=== PATIENT | female | born 1990 | race Caucasian/White ===

== ENCOUNTER 2023-09-24 09:15 | Outpatient (OUT) | payer BC, SELFPAY ==
--- NOTE | 2023-09-24 09:24 | MM_ITS ---
Patient Name: VITA SMITH MR#: [id number] : 1990 Exam Date: 09/24/2023 Ordering Doctor: ROD LORA . RADIOLOGY REPORT PROCEDURE: MM TOMOSYNTHESIS SCREENING BI COMPARISON: MAMMO TYLER SCREEN, 06/20/2022. INDICATIONS: screening Calculator Name NCI Breast Cancer Risk Assessment Tool 5 Year Breast Cancer Risk Not Applicable. Lifetime Breast Cancer Risk Not Applicable. Personal Breast Cancer No Personal Ovarian Cancer No Treatments None Family Cancers Mother with breast cancer at age 36; Grandfather-paternal with stomach cancer at age 76. LOCATION: [facility] BREAST COMPOSITION: There are scattered areas of fibroglandular density. FINDINGS: DIAGNOSTIC CATEGORY 1--NEGATIVE. NO CHANGE FROM COMPARISON ASSESSMENT. Scattered benign-appearing calcifications are present. Scattered benign-appearing lymph nodes are present. RIGHT BREAST: No significant suspicious finding. LEFT BREAST: No significant suspicious finding. RECOMMENDATIONS: CLINICAL EVALUATION. PLEASE NOTE: A NORMAL MAMMOGRAM DOES NOT EXCLUDE THE POSSIBILITY OF BREAST CANCER. A CLINICALLY SUSPICIOUS PALPABLE LUMP SHOULD BE BIOPSIED. Dictated by: Yeison Mendoza MD on 09/24/2023 at 15:18 Approved by: Yeison Mendoza MD on 09/24/2023 at 15:21
--- NOTE | 2023-09-24 09:26 | XR_ITS ---
[address] [address] Patient Name: VITA SMITH MRN: [id number] date: 1990 Sex: F Assigned Patient Location: [facility] Current Patient Location: [facility] Accession/Order Number: [id number] Exam Date: 09/24/2023 09:40 Report Date: 09/24/2023 09:54 At the request of: ROD LORA Procedure: XR elbow RT min 3V PROCEDURE: XR elbow RT min 3V COMPARISON: None. HISTORY: right elbow pain FINDINGS: BONES:No fracture, acute abnormality, or significant arthropathy. SOFT TISSUES:Negative. No visible soft tissue swelling. EFFUSION:None visible. OTHER: Negative. XR/XR elbow RT min 3V IMPRESSION: Normal exam Electronically authenticated by: XAVIER BRADY Date: 09/24/2023 09:54
--- NOTE | 2023-09-24 10:08 | XR_ITS ---
The [address] [address] Patient Name: VITA SMITH MRN: [id number] date: 1990 Sex: F Assigned Patient Location: [facility] Current Patient Location: [facility] Accession/Order Number: [id number] Exam Date: 09/24/2023 10:15 Report Date: 09/24/2023 12:15 At the request of: ROD LORA Procedure: XR shoulder LT min 2V PROCEDURE: XR shoulder LT min 2V COMPARISON: None. HISTORY: Left Shoulder Pain FINDINGS: BONES:No acute fracture or dislocation. The acromion clavicular and glenohumeral joints are normal in appearance. 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 No visible soft tissue swelling. EFFUSION:None visible. OTHER: Negative. XR/XR shoulder LT min 2V IMPRESSION: No acute abnormality Electronically authenticated by: XAVIER BRADY Date: 09/24/2023 12:15
== END 2023-09-24 09:16 | disposition home or self-care (01) ==
LOC: MAMMO 09:18
PROVIDERS: PCP Nurse Practitioner; Visit Provider Nurse Practitioner
DX: Z12.31 Encounter for screening mammogram for malignant neoplasm of breast (principal); M25.512 Pain in left shoulder; Z80.3 Family history of malignant neoplasm of breast; Z80.0 Family history of malignant neoplasm of digestive organs; M25.521 Pain in right elbow
CPT/HCPCS: 73030; 73080; 77063; 77067

== ENCOUNTER 2023-10-15 13:58 | Outpatient (OUT) | payer BC, SELFPAY ==
[2023-10-15 15:05] LABS: Basophils Percent Auto 0.4 % (0.2-2.0); Eosinophils Absolute Auto 0.3 10^3/uL (0.0-0.7); Eosinophils Percent Auto 3.2 % (0.9-7.0); Hematocrit 39.1 % (36.0-48.0); Hemoglobin 13.1 g/dL (12.0-16.0); Immature Granulocytes Abs Auto 0.02 10^3/uL (0.00-0.03); Immature Granulocytes Pct Auto 0.2 % (0.0-0.5); Lymphocytes Percent Auto 37.9 % (20.5-60.0); Mean Corpuscular HGB Conc 33.5 g/dL (29.9-35.2); Mean Corpuscular Hemoglobin 30.8 pg (26.7-34.0); Mean Platelet Volume 11.9 fL (9.5-13.5); Monocytes Absolute Auto 0.5 10^3/uL (0.3-0.8); Monocytes Percent Auto 4.5 % (1.7-12.0); Neutrophils Absolute Auto 5.7 10^3/uL (1.4-6.5); Neutrophils Percent Auto 53.8 % (43.0-75.0); Red Blood Count 4.25 10^6/uL (4.20-5.40); Red Cell Distribution Width 13.6 % (11.0-15.0); White Blood Count 10.5 10^3/uL (4.0-11.0)
[2023-10-15 15:20] LABS: Platelet Count 63 10^3/uL (150-450)
[2023-10-15 15:21] LABS: Percent Iron Saturation 21.9 %
[2023-10-15 15:59] LABS: Alanine Aminotransferase 24 U/L (14-59); Albumin Globulin Ratio 0.8; Albumin Level 3.4 g/dL (3.4-5.0); Alkaline Phosphatase 80 U/L (46-116); Anion Gap 10.8; Aspartate Amino Transferase 12 U/L (15-37); BUN Creatinine Ratio 14.5; Bilirubin Total 0.5 mg/dL (0.2-1.0); Calcium 9.2 mg/dL (8.5-10.1); Carbon Dioxide 28.6 mmol/L (21.0-32.0); Chloride 102 mmol/L (98-107); Estimated GFR (African America >60 (>=60); Estimated GFR (Non-African Ame >60 (>=60); Globulin 4.2 g/dL; Glucose 93 mg/dL (74-106); Lactate Dehydrogenase 177 U/L (81-234); Potassium 3.4 mmol/L (3.5-5.1); Sodium 138 mmol/L (136-145); Total Protein 7.6 g/dL (6.4-8.2)
[2023-10-16 05:07] LABS: HBsAg Screen Negative (Negative); Hep B Core Ab, IgM Negative (Negative); Hepatitis B Surf Ab Quant <3.1 mIU/mL (Immunity>9.9); Transferrin 266 mg/dL (192-364)
[2023-10-16 06:09] LABS: HCV Ab Non Reactive (Non Reactive); HIV Ab/p24 Ag Screen Non Reactive (Non Reactive)
[2023-10-16 16:13] LABS: Albumin 3.5 g/dL (2.9-4.4); Alpha-1-Globulin 0.2 g/dL (0.0-0.4); Alpha-2-Globulin 0.8 g/dL (0.4-1.0); Free Kappa Lt Chains,S 16.3 mg/L (3.3-19.4); Free Lambda Lt Chains,S 13.2 mg/L (5.7-26.3); Gamma Globulin 1.3 g/dL (0.4-1.8); Immunoglobulin A, Qn, Serum 263 mg/dL (87-352); Immunoglobulin G, Qn, Serum 1247 mg/dL (586-1602); Immunoglobulin M, Qn, Serum 110 mg/dL (26-217); Kappa/Lambda Ratio,S 1.23 (0.26-1.65)
== END 2023-10-15 13:59 | disposition home or self-care (01) ==
PROVIDERS: PCP Nurse Practitioner; Visit Provider Internal Medicine
DX: D75.839 Thrombocytosis, unspecified (principal)
CPT/HCPCS: 36415; 80053; 82607; 82728; 82746; 82784; 83521; 83540; 83550; 83615; 84155; 84165; 84466; 85025; 86317; 86709; 86803; 87340; 87389

== ENCOUNTER 2023-10-22 09:40 | Outpatient (OUT) | payer BC, SELFPAY ==
--- OUTSIDE RECORDS SUMMARY | 2023-10-22 10:03 | XMS_ITS ---
Patient Summarization (C-CDA 2.1 CCD) Created on: October 22, 2023 NICOLE CARTER : 1990 Sex: Female Author Organization Sample organization Care Team Providers Care Quality Control Tech Raw Materials Name Role Phone DANA RAMIREZ Admitting Unavailable DANA RAMIREZ Attending Unavailable DANA RAMIREZ Referring Unavailable DANA RAMIREZ Consulting Unavailable Crista Hernandez Unavailable Letha Herring Unavailable Dana Ramirez MD Primary Care Provider [phone] DANA RAMIREZ Referring Unavailable DANA RAMIREZ Primary Care Unavailable Yocasta Ansari Primary Care Physician Coty, Yocasta Ma Admitting Unavailable Coty, Yocasta Ma Attending Unavailable Brody Weston Attending Unavailable Coty, BRIM POUNCER MACHINE OPERATOR Yocasta Ma Referring Unavailable Coty, Yocasta Ma Attending Unavailable Coty, Yocasta Ma Attending Unavailable Coty, Yocasta Ma Attending Unavailable Coty, Yocasta Ma Admitting Unavailable Coty, Yocasta Ma Attending Unavailable Coty, Yocasta Ma Admitting Unavailable Coty, Yocasta Ma Attending Unavailable Allergies Allergy Classification Reported Allergen(s) Allergy Type Date of Onset Reaction(s) Facility (1 source) desloratadine / Pseudoephedrine Drug Allergy 09-24-19 15 [facility] Repository (4 sources) predniSONE; Translations: [PREDNISONE] Drug Allergy 09-22-19 15 [facility] Repository (3 sources) Sertraline; Translations: [Zoloft] Drug Allergy 09-22-19 15 [facility] Repository (2 sources) Ciprofloxacin Drug Allergy Unknown [employer] Other (7 sources) Sertraline; Translations: [SERTRALINE] Drug Allergy 05-23-20 21 Palpitations, Unknown (qualifier value) [employer] Other (4 sources) predniSONE; Translations: [prednisone] Drug Allergy 05-23-20 21 Palpitations, Unknown (qualifier value) [facility] Encounters Encounter Date Encounter Type Care Provider Facility Start: 10-16-2023 End: 10-17-2023 ambulatory Brody Weston Facility:[facility] Start: 10-16-2023 End: 10-16-2023 Patient encounter procedure Brody Weston [facility] Start: 10-09-2023 End: 10-10-2023 ambulatory Yocasta L Coty Facility:[facility] Start: 10-09-2023 End: 10-09-2023 Lab Drop off Yocasta L Coty [facility] Start: 09-17-2023 End: 09-18-2023 ambulatory Yocasta L Coty Facility:[facility] Start: 09-17-2023 End: 09-17-2023 Lab Drop off Yocasta L Coty [facility] Start: 07-30-2023 End: 07-31-2023 ambulatory Yocasta L Coty Facility:[facility] Start: 07-17-2023 End: 07-17-2023 ambulatory DANA [facility] Start: 07-17-2023 Encounter for gynecological examination (general) (routine) without abnormal findings DANA [facility] Start: 07-17-2023 End: 07-17-2023 Patient encounter procedure [facility] [employer] [facility] Start: 07-17-2023 End: 07-17-2023 Periodic preventive med est patient 18-39 yrs [facility] [employer] [facility] [place] Comment on above: Well woman exam with routine gynecological exam (Primary Dx); Family hx-breast malignancy; At high risk for breast cancer; Standardized adult depression screening tool completed Start: 12-10-2022 End: 12-10-2022 ambulatory Letha Herring Other [employer] Other Start: 12-10-2022 Office outpatient vi sit 15 minutes Letha Herring [facility] Start: 12-09-2022 ambulatory Yocasta Ansari Facility:[facility] Start: 08-29-2022 End: 08-29-2022 ambulatory Crista Hernandez Other [employer] Other Start: 08-29-2022 Office outpatient vi sit 15 minutes Crista Perezmond [facility] Start: 01-01-2019 End: 01-02-2019 Patient encounter procedure DANA Joann GRZEGORZ Facility:[facility] Medications Current Medications Medication Drug Class(es) Dates Sig (Normalized) Sig (Original) atenolol 25 mg oral tablet (6 sources) beta-Adrenergic Mark Start: 09-09-2023 take 1 tablet by mouth once daily atenolol 25 mg Tab 25 mg = 1 tab(s), Oral, Daily, # 90 tab(s), Refills(s) 1, Pharmacy: [facility]/pharmacy #[id number], 157.4, cm, 09/25/22 16:16:00 EDT, Height/Length Dosing, 93.3, kg, 09/25/22 16:16:00 EDT, Weight Dosing Start Date: 09/09/23 Status: Ordered take 1 tablet by mouth in the wi rning atenoloL (TENORMIN) 25 mg tablet Take 1 tablet (25 mg total) by mouth in the morning. Takes it in quarters . 0 Active Atenolol Active citalopram 40 mg oral tablet (6 sources) Serotonin Reuptake Inhibitor Start: 09-09-2023 take 1 tablet by mouth once daily citalopram 40 mg Tab 40 mg = 1 tab(s), Oral, Daily, # 90 tab(s), Refills(s) 1, Pharmacy: [facility]/pharmacy #[id number], 157.4, cm, 09/25/22 16:16:00 EDT, Height/Length Dosing, 93.3, kg, 09/25/22 16:16:00 EDT, Weight Dosing Start Date: 09/09/23 Status: Ordered take 1 tablet by mouth in the mo rning citalopram (CeleXA) 40 mg tablet Take 1 tablet (40 mg total) by mouth in the morning. 0 Active CeleXA Active Fish Oils (2 sources) Start: 10-09-2023 Fish Oil Oral, BID, Refill(s) 0 Start Date: 10/09/23 Status: Ordered gabapentin 300 mg oral capsule (2 sources) Anti-epileptic Agent Start: 10-09-2023 take 1 capsule by mouth twice daily gabapentin 300 mg Cap 300 mg = 1 cap(s), Oral, BID, # 60 cap(s), Refills(s) 0, Pharmacy: [facility]/pharmacy #[id number], 157.4, cm, 10/09/23 10:28:00 EDT, Height/Length Dosing, 87.6, kg, 10/09/23 10:28:00 EDT, Weight Dosing Start Date: 10/09/23 Status: Ordered LORazepam 0.5 mg oral tablet (3 sources) Benzodiazepine Start: 09-17-2023 take 1 tablet by mouth every twelve hours as needed for anxiety Ativan 0.5 mg Tab 0.5 mg = 1 tab(s), Oral, q12hr, PRN anxiety, # 20 tab(s), Refills(s) 0, Pharmacy: [facility]/pharmacy #[id number], 157.4, cm, 09/17/23 10:18:00 EDT, Height/Length Dosing, 89.1, kg, 09/17/23 10:18:00 EDT, Weight Dosing Start Date: 09/17/23 Status: Ordered methylPREDNISolone 4 mg oral tablet (1 source) Corticosteroid Start: 12-10-2022 methylPREDNISolone 4 MG as directed Orally for daily dose take half with breakfast, half with dinner for 6 days Nov, Active omeprazole 40 mg delayed release oral capsule (6 sources) Proton Pump Inhibitor Start: 09-11-2023 take 1 capsule by mouth once daily omeprazole 40 mg Cap-DR 40 mg = 1 cap(s), Oral, Daily, # 90 tab(s), Refills(s) 1, Pharmacy: [facility]/pharmacy #[id number], 157.4, cm, 09/25/22 16:16:00 EDT, Height/Length Dosing, 93.3, kg, 09/25/22 16:16:00 EDT, Weight Dosing Start Date: 09/11/23 Status: Ordered take 2 capsules by mouth in the morning omeprazole (PriLOSEC) 20 mg capsule Take 2 capsules (40 mg total) by mouth in the morning. 0 Active Omeprazole Activ e Completed/Discontinued Medications Medication Drug Class(es) Dates Sig (Normalized) Sig (Original) [id number] 200 actuat albuterol 0.09 mg/actuat metered dose inhaler (2 sources) beta2-Adrenergic Agonist Start: 08-29-2022 take 2 puff(s) by inhalation four times daily as needed Albuterol Sulfate HFA 108 (90 Base) MCG/ACT 2 puffs Inhalation 4 times a day prn Aug, Not-Taking semaglutide, weight loss, (WEGOVY) 0.5 mg/0.5 mL pen injector (1 source) Start: 07-16-2022 End: 07-17-2023 semaglutide, weight loss, (WEGOVY) 0.5 mg/0.5 mL pen injector Indications: Obesity (BMI 35.0-39.9 without comorbidity) Inject 0.5 mL (0.5 mg total) under the skin every 7 days. 2 mL 0 07/16/2022 07/17/2023 Discontinued (Side effects) Payers Date Payer Category Payer Unknown [employer]NE[employer] OUT OF STATE PPO/TRUST [id number] 2017-Present [phone] [address] [place] [address] [id number] 1990 Unknown [id number] 1990 Unknown [id number] 1990 Unknown [id number] 1990 Unknown [id number] 1990 Unknown [id number] 1990 Unknown [id number] 1990 Unknown [id number] 1990 Unknown [id number] 1960 Unknown [id number] Plan of Treatment Date Care Activity Detail Author Start: 07-17-2024 Adult BMI Follow Up Plan Adult BMI Follow Up Plan [facility] [employer] [facility] Start: 07-17-2024 Adult [facility] Screening [facility] Start: 07-17-2024 Depression Screening Depression Scre ening [facility] [employer] [facility] Start: 07-17-2024 Tobacco Screening [facility] Start: 05-23-2024 Screening for malign ant neoplasm of cervix [facility] Start: 07-17-2023 End: 09-13-2024 DBT Breast - bilateral screening Mammography screening bilateral with CAD Imaging Routine Family hx-breast malignancy At high risk for breast cancer Expected: 07/17/2023, Expires: 09/13/2024 [employer] Phone: Comment on above: Expected: 07/17/2023 , Expires: 09/13/2024 Start: 01-24-2023 Influenza vaccination Influenza Vacc ine [facility] Start: 02-25-2008 DTaP,Tdap and Td Vaccines (1 - Tdap) DTaP,Tdap and Td Vaccines (1 - Tdap) [facility] [employer] Problems Active Problems Problem Classification Problem Date Documented Date Episodic/Chronic Adjustment disorders (3 sources) Adjustment disorder with depressed mood 09-23-2022 Chronic Anxiety disorders (3 sources) Anxiety disorder 09-23-2022 Chronic Cardiac dysrhythmias (7 sources) Supraventricular tachycardia; Translations: [Supraventricular tachycardia] Onset: 01-01-2019 09-23-2022 Chronic Chronic obstructive pulmonary disease and bronchiectasis (1 source) Bronchitis, not specified as acute or chronic Episodic Coagulation and hemorrhagic disorders (1 source) Thrombocytopenic disorder 10-10-2023 Chronic Immunizations and screening for infectious disease (1 source) Contact with and (suspected) exposure to other viral communicable diseases Episodic Malaise and fatigue (3 sources) Fatigue 09-17-2023 Episodic Other endocrine disorders (1 source) Polycystic ovary syndrome; Translations: [Polycystic ovarian syndrome] Onset: 06-18-2022 06-18-2022 Chronic Other non-traumatic joint disorders (3 sources) Pain in elbow 09-17-2023 Episodic Other nutritional; endocrine; and metabolic disorders (1 source) Obese class II; Translations: [Obesity, unspecified] Onset: 06-18-2022 06-18-2022 Chronic Other screening for suspected conditions (not mental disorders or infectious disease) (2 sources) Platelet count below reference range 10-09-2023 Episodic Residual codes; unclassified (5 sources) Family history of breast cancer; Translations: [Family history of malignant neoplasm of breast] Onset: 05-23-2021 07-17-2023 Episodic Residual codes; unclassified (2 sources) At high risk for breast cancer; Translations: [Other specified personal risk factors, not elsewhere classified] Onset: 06-24-2022 07-17-2023 Episodic Residual codes; unclassified (1 source) Family history of malignant neoplasm of breast; Translations: [Family history of malignant neoplasm of breast] Onset: 07-17-2023 Episodic Screening and history of mental health and substance abuse codes (2 sources) Standardized adult depression screening tool completed ; Translations: [Encounter for screening for depression] Onset: 07-17-2023 07-17-2023 Episodic Sprains and strains (1 source) Strain of muscle, fascia and tendon at neck level, initial encounter Episodic Unclassified (1 source) Gynecologic Exam Onset: 07-17-2023 Unclassified (3 sources) Pain of left shoulder region 09-17-2023 Unclassified (6 sources) Patient encounter status 09-17-2023 Past or Other Problems Problem Classification Problem Date Documented Da te Episodic/Chronic Mood disorders (1 source) Mood disorders Onset: 07-17-2023 07-17-2023 Residual codes; unclassified (1 source) Other specified personal risk factors, not elsewhere classified; Translations: [Other specified personal risk factors, not elsewhere classified] Onset: 06-24-2022 Episodic Unclassified (1 source) Onset: 07-17-2023 07-17-2023 Procedures Date Procedure Procedure Detail Performing Clinician Start: 07-17-2023 Adult depression scr eening assessment [facility] [employer] Start: 05-23-2021 Microscopic observat ion [Identifier] in Cervix by Cyto stain [facility] [employer] Gallbladder structur e (body structure) Yocasta Ansari Comment on above: removed Scoliosis deformity of spine (disorder) Yocasta Ansari Comment on above: surgery Results Test Name Value Interpretation Reference Range [facility] RAD - MIS [id number] #1.00TIFF Normal [facility] Oncology Progress Noteon Oncology Progress Note Chief Complaint New patient Thrombocytopenia; no concerns Diagnoses Thrombocytopenia (D69.6: Thrombocytopenia, unspecified) Thrombocytosis (D75.839: Thrombocytosis, unspecified) Oncological History/ROS/PE/Asses sment and Plan HPI 33-year-old female referred for thrombocytopenia by her primary care provider Yocasta Ansari [facility]. Medical history includes depression, anxiety, hypertension, reflux. Outpatient medications include atenolol, gabapentin, Celexa, Prilosec, albuterol as needed. 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 Review of CBC from September 17, 2023 shows white blood cell count 8.3, hemoglobin 13.6, platelet count of 70,000. CBC from 10/09/2023 shows white blood cell count of 5.7, hemoglobin of 13.4, platelet count of 33.0. Recent laboratory evaluation from October 15, 2023 notes HIV antibodies nonreactive, hepatitis C antibody is nonreactive, hepatitis B surface antibody is negative. Hepatitis B core IgM is negative. Hepatitis antigen screen is negative. Hepatitis A IgM is negative. Repeat CBC from October 15, 2023 shows platelets up to 63,000. Iron studies confirm an iron saturation of 21% with an iron of 73 and a ferritin of 29.0. Her vitamin B12 is 315 normal chemistries. Normal LFTs. Creatinine is 0.62. LDH is 177. no fevers sweats, chills. she has severe anxiety and states hot flashes occasionally. no night sweats. no lumps or bumps. she has lost 20lbs through diligent diet. no lumps or bumps PHYSICAL EXAMINATION ECOG PS: General: Alert and oriented, no acute distress. Eye: Extraocular movements are intact, normal conjunctiva. HENT: Normocephalic, normal hearing. Neck: Supple, non-tender, no jugular venous distention. Cardiovascular: Normal rate, regular rhythm, no murmur, no edema. Gastrointestinal: Soft, non-tender, non-distended, normal bowel sounds, no organomegaly. Respiratory: Clear to auscultation bilaterally, no wheezes, rhonchi or rales. Integumentary: Warm, dry, pink, no pallor, no rash. Psychiatric: Cooperative, appropriate mood & affect. assessment plan thrombocytopenia, likely ITP, chonric. she is not on any meds that should cause this. no signs or symptoms of lymphoma or leukemia. variable btw 70 and 30s. will monitor for now. additional labs are pending. hiv and hepatitis a,b,c were negative. will trend out weekly for a month then f/u. additionally will check zinc and copper and mma. Follow-up With When Contact Information Brody Weston DO, ONC [facility] [address] [place] [address]- [phone] Fax Business (1) Additional Instructions: weekly cbc, check zinc and copper with next labs. f/u in 1 month. Medications atenolol 25 mg Tab, 25 mg= 1 tab(s), Oral, Daily, 1 refills Ativan 0.5 mg Tab, 0.5 mg= 1 tab(s), Oral, q12hr, PRN citalopram 40 mg Tab, 40 mg= 1 tab(s), Oral, Daily, 1 refills Fish Oil, Oral, BID gabapentin 300 mg Cap, 300 mg= 1 cap(s), Oral, BID omeprazole 40 mg Cap-DR, 40 mg= 1 cap(s), Oral, Daily, 1 refills Vital Signs and Measurements Vital Signs and Measurements This Visit - Last 24 Hours T: 36.7 ?C (Oral) HR: 90 (Peripheral) RR: 16 BP: 106/75 SpO2: 98% HT: 157.0 cm HT: 157 cm WT: 87.5 kg (Dosing) WT: 87.5 kg BMI: 35.5 BSA: 1.95 Staging Information No information available Labs Common Labs Event Name Event Result Date/Time WBC 5.7 E9/L 10/09/23 WBC 8.3 E9/L 09/17/23 RBC 4.3 E12/L 10/09/23 RBC 4.4 E12/L 09/17/23 HGB 13.4 gm/dL 10/09/23 HGB 13.6 gm/dL 09/17/23 Hct 39.5 % 10/09/23 Hct 40.9 % 09/17/23 MCV 90.9 fL 10/09/23 MCV 92.3 fL 09/17/23 MCH 30.9 pg 10/09/23 MCH 30.7 pg 09/17/23 MCHC 34 gm/dL 10/09/23 MCHC 33.3 gm/dL 09/17/23 RDW 13.6 % 10/09/23 RDW 13.8 % 09/17/23 Platelet 33 E9/L Critical 10/09/23 Platelet 70 E9/L Low 09/17/23 MPV 10.1 fL 10/09/23 MPV 9.8 fL 09/17/23 Neutro Auto 54.2 % 10/09/23 Neutro Auto 56.7 % 09/17/23 Lymph Auto 35.9 % 10/09/23 Lymph Auto 34.4 % 09/17/23 Carroll Auto 4.6 % 10/09/23 Carroll Auto 4.6 % 09/17/23 Eos Auto 4.6 % 10/09/23 Eos Auto 3.7 % 09/17/23 Basophil Auto 0.7 % 10/09/23 Basophil Auto 0.6 % 09/17/23 Neutro Absolute 3.1 E9/L 10/09/23 Neutro Absolute 4.7 E9/L 09/17/23 Lymph Absolute 2 E9/L 10/09/23 Lymph Absolute 2.9 E9/L 09/17/23 Carroll Absolute 0.3 E9/L 10/09/23 Carroll Absolute 0.4 E9/L 09/17/23 Eos Absolute 0.3 E9/L 10/09/23 Eos Absolute 0.3 E9/L 09/17/23 Basophil Absolute 0 E9/L 10/09/23 Basophil Absolute 0.1 E9/L 09/17/23 Path Review Path Review 10/09/23 Glucose Lvl 91 mg/dL 09/17/23 BUN 11 mg/dL 09/17/23 Creatinine 0.7 mg/dL 09/17/23 Potassium Lvl 4.1 mmol/L 09/17/23 Chloride 104 mmol/L 09/17/23 CO2 27 mmol/L 09/17/23 Calcium Lvl 9.3 mg/dL 09/17/23 Total Protein 7.2 gm/dL 09/17/23 Albumin Lvl 4 gm/dL 09/17/23 Bili Total (more content not included)... Normal [facility] Outside [facility] 10-17-2023 Outside Labs [id number] 4#1.00TIFF Normal [facility] Consent for Treatmenton 09-24 Consent for Treatment [id number] #1.00TIFF Normal [facility] ED Pat Eduon 10-16-2023 [facility] Edu Oncology Bone Marrow Aspiration and Bone Marrow Biopsy, Adult Bone marrow aspiration and bone marrow biopsy are procedures that are done to diagnose blood disorders. These procedures may also be done to help diagnose cancer or certain infections. Bone marrow is the soft tissue that is inside the bones. Blood cells are produced in bone marrow. For bone marrow aspiration, a sample of tissue in liquid form is removed from inside the bone. For a bone marrow biopsy, a small sample of solid bone marrow tissue is removed. These samples are examined under a microscope or tested in a lab. You may need these procedures if you get an abnormal result on a blood test called a complete blood count (CBC). The aspiration or biopsy sample is usually taken from the upper part of the hip bone (iliac crest). Sometimes, an aspiration sample is taken from the chest bone (sternum). Tell a health care provider about: ? Any allergies you have. ? All medicines you are taking, including vitamins, herbs, eye drops, creams, and wgnr-dqh-wzhnlwz medicines. ? Any problems you or family members have had with anesthetic medicines. ? Any blood or bone disorders you have. ? Any surgeries you have had. ? Any medical conditions you have. ? Any recent infections you have had, including skin infections. ? Whether you are or may be . What are the risks? Generally, this is a safe procedure. However, problems may occur, including: ? Bleeding. ? Infection. ? Persistent pain after the procedure. ? Cracking (fracture) of the bone. ? Allergic reactions to medicines. ? Damage to nearby organs, if the sample is taken from the sternum. What happens before the procedure? Staying hydrated Follow instructions from your health care provider about hydration, which may include: ? Up to 2 hours before the procedure ? you may continue to drink clear liquids, such as water, clear fruit juice, black coffee, and plain tea. Eating and drinking restrictions Follow instructions from your health care provider about eating and drinking, which may include: ? 8 hours before the procedure ? stop eating heavy meals or foods, such as meat, fried foods, or fatty foods. ? 6 hours before the procedure ? stop eating light meals or foods, such as toast or cereal. ? 6 hours before the procedure ? stop drinking milk or drinks that contain milk. ? 2 hours before the procedure ? stop drinking clear liquids. Medicines Ask your health care provider about: ? Changing or stopping your regular medicines. This is especially important if you are taking diabetes medicines or blood thinners. ? Taking medicines such as aspirin and ibuprofen. These medicines can thin your blood. Do not take these medicines unless your health care provider tells you to take them. ? Taking gean-rfr-ynqvind medicines, vitamins, herbs, and supplements. General instructions ? Plan to have someone take you home from the hospital or clinic. ? If you will be going home right after the procedure, plan to have someone with you for 24 hours. ? Ask your health care provider: ? How your surgery site will be marked. ? What steps will be taken to help prevent infection. These may include: ? Removing hair at the surgery site. ? Washing skin with a germ-killing soap. What happens during the procedure? ? An IV may be inserted into one of your veins. ? You will be given one or more of the following: ? A medicine to help you relax (sedative). ? A medicine to numb the area (local anesthetic). ? A medicine to make you fall asleep (general anesthetic). ? The bone marrow sample will be removed as follows: ? For an aspiration, a hollow needle will be inserted through your skin and into your bone. Bone marrow fluid will be drawn up into a syringe. ? For a biopsy, your health care provider will use a hollow needle to remove a small sample of solid tissue from your bone marrow. ? The needle will be removed. ? Bone marrow fluid or tissue will be sent to a lab for examination. ? A bandage (dressing) will be placed over the insertion site and taped in place. The procedure may vary among health care providers and hospitals. What happens after the procedure? ? Your blood pressure, heart rate, breathing rate, and blood oxygen level will be monitored until you leave the hospital or clinic. ? Your IV will be removed, and the insertion site will be checked for bleeding. ? Do not drive for 24 hours if you were given a sedative during your procedure. ? It is up to you to get the results of your procedure. Ask your health care provider, or the department that is doing the procedure, when your results will be ready. Summary ? Bone marrow aspiration and bone marrow biopsy are procedures that are done to diagnose blood disorders. These procedures may also be done to help diagnose cancer or certain infections. ? Before the procedure, te (more content not included)... Normal [facility] HIPAA Forms Officeon 024 HIPAA Forms Office [id number]# 1.00TIFF Normal [facility] 10-16-2023 Outside Labs [id number]#1.00TIFF Normal [facility] Physician Orderon 10-16-2023 Physician Order [id number]#1.00TIFF Normal [facility] Physician Orderon 10-15-2023 Physician Order [id number]#1.00TIFF Normal [facility] Path. Reviewon 10-10-2023 Path Review Peripheral Blood Smear: Invalid Interpretation Code [facility] Comment on above: Order Comment: Order added by Discern Expert Performed By: #### [id number] #### [facility] Laboratory [address] [place] [id number] Path. Review Peripheral Blood Smear: - RBCs: Normochromic and normocytic - WBCs: Within normal limits - Platelet: Decreased Invalid Interpretation Code [facility] Comment on above: Other Comment: Order added by Discern Expert Ambulatory Visit Summaryon 0 10-09-2023 Ambulatory Visit Summary NICOLE CARTER :1990 Visit Date:10/09/2023 Ambulatory Visit Instructions Your Diagnosis Low platelet count Right elbow pain BMI 35.0-35.9,adult Non-smoker Your Care Team Attending Physician - Yocasta Vidal Primary Care Physician - Yocasta Vidal This Is Your Medications List atenolol (atenolol 25 mg Tab) citalopram (citalopram 40 mg Tab) gabapentin (gabapentin 300 mg Cap) lorazepam (Ativan 0.5 mg Tab) omega-3 polyunsaturated fatty acids (Fish Oil) omeprazole (omeprazole 40 mg Cap-DR) Procedures Performed Gallbladder, Scoliosis. Discharge Vitals Heart Rate (Peripheral) 78 Respiratory Rate 18 Blood Pressure 114/74 Height 157.4 cm Height 62 in Weight 87.60 kg Weight 192.72 lb BMI 35.36 Medications What How Much When Instructions New gabapentin (gabapentin 300 mg Cap) 1 Capsules By Mouth 2 times a day Pickup at [facility]/pharmacy #[id number] Unchanged atenolol (atenolol 25 mg Tab) 1 Tablets By Mouth Every day Unchanged citalopram (citalopram 40 mg Tab) 1 Tablets By Mouth Every day Unchanged lorazepam (Ativan 0.5 mg Tab) 1 Tablets By Mouth Every 12 hours as needed for anxiety Unchanged omega-3 polyunsaturated fatty acids (Fish Oil) By Mouth 2 times a day Unchanged omeprazole (omeprazole 40 mg Cap-DR) 1 Capsules By Mouth Every day Pharmacy Information [facility]/pharmacy #[id number]: [address], [place] [id number] [phone] Allergies Zoloft (Unknown) predniSONE (Unknown) Problems Ongoing - Any problem that you are currently receiving treatment for. Adjustment disorder with depressed mood Anxiety disorder Breast cancer screening by mammogram Family history of breast cancer Fatigue Left shoulder pain Low platelet count Right elbow pain SVT (supraventricular tachycardia) Wellness examination Patient Survey You may receive a survey via text or e-mail asking about your office visit. Please share your experience with us by completing your survey. We appreciate your feedback and thank you for choosing us for your care. Normal [facility] CBC w/ Auto Diffon 4 Basophils/100 WBC (Bld) 0.7 % Normal 0.0-2.0 [facility] Comment on above: Performed By: #### 2 [id number] #### [facility] [address] [place] [address] Basophils/Leukocytes Auto (Bld) [Pure # fraction] 0.0 E9/L Normal 0.0-0.2 [facility] Comment on above: Performed By: #### 2 [id number] #### [facility] [address] [place] [address] Eosinophils (Bld) [#/Vol] 0.3 E9/L Normal 0.0-0.5 [facility] Comment on above: Performed By: #### 2 [id number] #### [facility] [address] [place] [address] Eosinophils/100 WBC (Bld) 4.6 % Normal 0.0-8.0 [facility] Comment on above: Performed By: #### 2 [id number] #### [facility] [address] [place] [address] Erythrocyte distribution width (RBC) [Ratio] 13.6 % Normal 10.9-14.2 [facility] Comment on above: Performed By: #### 2 544007 #### [facility] [address] [place] [address] Hematocrit (Bld) [Volume fraction] 39.5 % Normal 34.0-46.0 [facility] Comment on above: Performed By: #### 2 [id number] #### [facility] [address] [place] [address] Hemoglobin (Bld) [Mass/Vol] 13.4 g/dL Normal 12.0-16.0 [facility] Comment on above: Performed By: #### 2 [id number] #### [facility] [address] [place] [address] Lymphocytes (Bld) [#/Vol] 2.0 E9/L Normal 1.0-4.0 [facility] Comment on above: Performed By: #### 2 022061 #### [facility] [address] [place] [address] Lymphocytes/100 WBC (Bld) 35.9 % Normal 14.0-50.0 [facility] Comment on above: Performed By: #### 2 855589 #### [facility] [address] [place] [address] MCH (RBC) [Entitic mass] 30.9 pg Normal 27.0-34.0 [facility] Comment on above: Performed By: #### 2 832035 #### [facility] [address] [place] [address] MCHC (RBC) [Mass/Vol] 34.0 g/dL Normal 31.4-36.0 [facility] Comment on above: Performed By: #### 2 079463 #### [facility] [address] [place] [address] MCV (RBC) [Entitic vol] 90.9 fL Normal 80.0-100.0 [facility] Comment on above: Performed By: #### 2 106236 #### [facility] [address] [place] [address] Monocytes (Bld) [#/Vol] 0.3 E9/L Normal 0.2-1.0 [facility] Comment on above: Performed By: #### 2 665439 #### [facility] [address] [place] [address] Neutrophils (Bld) [#/Vol] 3.1 E9/L Normal 2.0-7.5 [facility] Comment on above: Performed By: #### 2 832546 #### [facility] [address] [place] [address] Neutrophils/100 WBC (Bld) 54.2 % Normal 36.0-75.0 [facility] Comment on above: Performed By: #### 2 080136 #### [facility] [address] [place] [address] Platelet mean volume (Bld) [Entitic vol] 10.1 fL Normal 6.4-10.8 [facility] Comment on above: Performed By: #### 2 [id number] #### [facility] [address] [place] [address] Platelets (Bld) [#/Vol] 33.0 E9/L Abnormal 150.0-500.0 [facility] Comment on above: Result Comment: Resu lts called to DR. MICHELLE by [id number] and read back on 10/09/2023 19:59:47. Performed By: #### 2 [id number] #### [facility] [address] [place] [address] RBC (Bld) [#/Vol] 4.3 E12/L Normal 4.3-5.9 [facility] Comment on above: Performed By: #### 2 082535 #### [facility] [address] [place] [address] RBC size Nom (Bld) NORMAL Invalid Interpretation Code [facility] Comment on above: Performed By: #### 2 495495 #### [facility] [address] [place] [address] WBC corrected for nucl RBC Auto (Bld) [#/Vol] 5.7 E9/L Normal 4.0-11.0 [facility] Comment on above: Performed By: #### 2 066262 #### [facility] [address] [place] [address] CHEMISTRYOrdered By: SYSTEM SYSTEM on 10-09-2023 Iron [Mass/Vol] 86 ug/dL Normal 35 - 153 mcg/dL Remisol Chem Iron binding capacity [Mass/Vol] 357 ug/dL Normal 250 - 400 mcg/dL Remisol Chem Transferrin [Mass/Vol] 255 mg/dL Normal 200 - 370 mg/dL Remisol Chem Family Medicine Office/Clini c Noteon 10-09-2023 Family Medicine Office/Clinic Note HPI Staff Nicole is a 33 year old female presenting for 3 week follow up MARK ANTHONY: started on gabapentin if no improvement will refer to pain management for injections Right elbow pain, Left shoulder pain: Pt never received gabapentin pt states [facility] said they never received RX History of Present Illness pt presents today for continued shoulder and right elbow pain. Review of Systems PHQ Score Initial Depression Screen Score: 0 SCORE Physical Exam Vitals & Measurements HR: 78(Peripheral) RR: 18 BP: 114/74 SpO2: 98% HT: 62 in HT: 157.4 cm WT: 87.60 kg WT: 192.72 lb BMI: 35.36 General: alert, no acute distress ENMT: oral mucosa moist, no pharyngeal erythema or exudate Cardiovascular: regular rate and rhythm, normal peripheral perfusion Respiratory: Lungs CTA, respirations non labored Extremities: no deformity, no trauma Neurological: oriented x 4, LOC appropriate for age, CN II-XII intact, motor strength equal & normal bilaterally, speech normal Assessment/Plan 1. Low platelet count (D69.6: Thrombocytopenia, unspecified) labs drawn today. pt is very concerned about her low platlets Ordered: CBC w/ Auto Diff Iron Level TIBC Calculated 2. Right elbow pain (M25.521: Pain in right elbow) pt still having right elbow pain. did not get gabapentin picked up. will reorder. pharmacy was called and said they put it back on shelf. pt will try gabapentin first if no relief will refer to [facility] pain management for possible injection. 3. BMI 35.0-35.9,adult (Z68.35: Body mass index [BMI] 35.0-35.9, adult) BMI education complete Ordered: CBC w/ Auto Diff Iron Level TIBC Calculated 4. Non-smoker (Z78.9: Other specified health status) continue not smoking Ordered: CBC w/ Auto Diff Iron Level TIBC Calculated Orders: gabapentin, 300 mg = 1 cap(s), Oral, Once a day (at bedtime), # 30 cap(s), Refills(s) 0, Pharmacy: [facility]/pharmacy #[id number], 157.4, cm, 09/17/23 10:18:00 EDT, Height/Length Dosing, 89.1, kg, 09/17/23 10:18:00 EDT, Weight Dosing gabapentin, 300 mg = 1 cap(s), Oral, BID, # 60 cap(s), Refills(s) 0, Pharmacy: [facility]/pharmacy #[id number], 157.4, cm, 10/09/23 10:28:00 EDT, Height/Length Dosing, 87.6, kg, 10/09/23 10:28:00 EDT, Weight Dosing Follow-up No qualifying data available Problem List/Past Medical History Ongoing Adjustment disorder with depressed mood Anxiety disorder Breast cancer screening by mammogram Family history of breast cancer Fatigue Left shoulder pain Low platelet count Right elbow pain SVT (supraventricular tachycardia) Wellness examination Historical No qualifying data Procedure/Surgical History Gallbladder, Scoliosis. Medications atenolol 25 mg Tab, 25 mg= 1 tab(s), Oral, Daily, 1 refills Ativan 0.5 mg Tab, 0.5 mg= 1 tab(s), Oral, q12hr, PRN citalopram 40 mg Tab, 40 mg= 1 tab(s), Oral, Daily, 1 refills Fish Oil, Oral, BID gabapentin 300 mg Cap, 300 mg= 1 cap(s), Oral, BID omeprazole 40 mg Cap-DR, 40 mg= 1 cap(s), Oral, Daily, 1 refills Allergies Zoloft (Unknown) predniSONE (Unknown) Social History Alcohol - Denies Alcohol Use, 09/23/2022 Substance Abuse - Denies Substance Abuse, 09/23/2022 Tobacco Never (less than 100 in lifetime) Tobacco Use:. Never Smokeless Tobacco Use:. Household tobacco concerns: No., 10/09/2023 Family History Primary malignant neoplasm of female breast: Mother. Normal [facility] Comment on above: Result Comment: Elec tronically Signed By: Yocasta Vidal\.osmin\Date and Time Signed: 10/09/23 10:52 EDT HEMATOLOGYOrdered By: SYSTEM SYSTEM on 10-09-2023 Basophils/100 WBC (Bld) 0.7 % Normal 0.0 - 2.0 % Remisol Heme Basophils/Leukocytes Auto (Bld) [Pure # fraction] 0.0 E9/L Normal 0.0 - 0.2 E9/L Remisol Heme Eosinophils (Bld) [#/Vol] 0.3 E9/L Normal 0.0 - 0.5 E9/L Remisol Heme Eosinophils/100 WBC (Bld) 4.6 % Normal 0.0 - 8.0 % Remisol Heme Erythrocyte distribution width (RBC) [Ratio] 13.6 % Normal 10.9 - 14.2 % Remisol Heme Hematocrit (Bld) [Volume fraction] 39.5 % Normal 34.0 - 46.0 % Remisol Heme Hemoglobin (Bld) [Mass/Vol] 13.4 g/dL Normal 12.0 - 16.0 gm/dL Remisol Heme Lymphocytes (Bld) [#/Vol] 2.0 E9/L Normal 1.0 - 4.0 E9/L Remisol Heme Lymphocytes/100 WBC (Bld) 35.9 % Normal 14.0 - 50.0 % Remisol Heme MCH (RBC) [Entitic mass] 30.9 pg Normal 27.0 - 34.0 pg Remisol Heme MCHC (RBC) [Mass/Vol] 34.0 g/dL Normal 31.4 - 36.0 gm/dL Remisol Heme MCV (RBC) [Entitic vol] 90.9 fL Normal 80.0 - 100.0 fL Remisol Heme Monocytes (Bld) [#/Vol] 0.3 E9/L Normal 0.2 - 1.0 E9/L Remisol Heme Monocytes/100 WBC (Bld) 4.6 % Normal 4.0 - 14.0 % Remisol Heme Neutrophils (Bld) [#/Vol] 3.1 E9/L Normal 2.0 - 7.5 E9/L Remisol Heme Neutrophils/100 WBC (Bld) 54.2 % Normal 36.0 - 75.0 % Rem[facility] Heme Platelet mean volume (Bld) [Entitic vol] 10.1 fL Normal 6.4 - 10.8 fL [facility] Heme Platelets (Bld) [#/Vol] 33.0 E9/L Invalid Interpretation Code 150.0 - 500.0 E9/L [facility] Comment on above: Result Comment: Resu lts called to DR. MICHELLE by [id number] and read back on 10/09/2023 19:59:47. RBC (Bld) [#/Vol] 4.3 E12/L Normal 4.3 - 5.9 E12/L Remisol Heme RBC size Nom (Bld) NORMAL *NA* (10/09/23 10:59 AM) Invalid Interpretation Code Remisol Heme WBC corrected for nucl RBC Auto (Bld) [#/Vol] 5.7 E9/L Normal 4.0 - 11.0 E9/L Remisol Heme Ironon 10-09-2023 Iron [Mass/Vol] 86 microgram/dL Normal 35-153 [facility] Comment on above: Performed By: #### 2 [id number] #### [facility] [address] [place] [address] TIBC Calculatedon 10-09-2023 Iron binding capacity [Mass/Vol] 357 microgram/dL Normal 250-400 [facility] Comment on above: Performed By: #### 1 [id number] #### [facility] [address] [place] [address] Transferrin [Mass/Vol] 255 mg/dL Normal 200-370 [facility] Comment on above: Performed By: #### 1 [id number] #### [facility] [address] [place] [address] Outside Mammographyon 2023 Outside Mammography [id number] #1.00TIFF Normal [facility] RAD - MISCon 09-24-2023 RAD - MISC [id number] #1.00TIFF Normal [facility] Reminderson 09-18-2023 Reminders - From: Yocasta Vidal To: [facility] - Clinical; Sent: 09/18/2023 10:56:34 EDT Show up: 09/18/2023 10:56:00 EDT Subject: Ambulatory Reminder Due Date/Time: 09/19/2023 10:55:00 EDT all labs normal except triglycerides. Increase fruits and vegetables. Start low fat diet. She can get fish oil OTC that also helps decrease triglycerides. Results: Date Result Name Ind Value Ref Range 09/17/2023 10:41 WBC 8.3 E9/L (4.0 - 11.0) 09/17/2023 10:41 RBC 4.4 E12/L (4.3 - 5.9) 09/17/2023 10:41 HGB 13.6 gm/dL (12.0 - 16.0) 09/17/2023 10:41 Hct 40.9 % (34.0 - 46.0) 09/17/2023 10:41 MCV 92.3 fL (80.0 - 100.0) 09/17/2023 10:41 MCH 30.7 pg (27.0 - 34.0) 09/17/2023 10:41 MCHC 33.3 gm/dL (31.4 - 36.0) 09/17/2023 10:41 RDW 13.8 % (10.9 - 14.2) 09/17/2023 10:41 Platelet ((L)) 70.0 E9/L (150.0 - 500.0) 09/17/2023 10:41 MPV 9.8 fL (6.4 - 10.8) 09/17/2023 10:41 Neutro Auto 56.7 % (36.0 - 75.0) 09/17/2023 10:41 Lymph Auto 34.4 % (14.0 - 50.0) 09/17/2023 10:41 Carroll Auto 4.6 % (4.0 - 14.0) 09/17/2023 10:41 Eos Auto 3.7 % (0.0 - 8.0) 09/17/2023 10:41 Basophil Auto 0.6 % (0.0 - 2.0) 09/17/2023 10:41 Neutro Absolute 4.7 E9/L (2.0 - 7.5) 09/17/2023 10:41 Lymph Absolute 2.9 E9/L (1.0 - 4.0) 09/17/2023 10:41 Carroll Absolute 0.4 E9/L (0.2 - 1.0) 09/17/2023 10:41 Eos Absolute 0.3 E9/L (0.0 - 0.5) 09/17/2023 10:41 Basophil Absolute 0.1 E9/L (0.0 - 0.2) 09/17/2023 10:41 Glucose Lvl 91 mg/dL (55 - 199) 09/17/2023 10:41 BUN 11 mg/dL (5 - 21) 09/17/2023 10:41 Creatinine 0.7 mg/dL (0.5 - 1.3) 09/17/2023 10:41 eGFR 116 mL/min/1.73 m2 (>=59 - ) 09/17/2023 10:41 BUN/Creat Ratio 16 (10 - 20) 09/17/2023 10:41 Sodium Lvl 137 mmol/L (135 - 145) 09/17/2023 10:41 Potassium Lvl 4.1 mmol/L (3.5 - 5.3) 09/17/2023 10:41 Chloride 104 mmol/L (101 - 111) 09/17/2023 10:41 CO2 27 mmol/L (21 - 31) 09/17/2023 10:41 AGAP 10 mEq/L (6 - 16) 09/17/2023 10:41 Calcium Lvl 9.3 mg/dL (8.9 - 11.1) 09/17/2023 10:41 Alk Phos 66 Int._Unit/L (21 - 98) 09/17/2023 10:41 ALT 12 Int._Unit/L (6 - 46) 09/17/2023 10:41 AST 11 Int._Unit/L (5 - 43) 09/17/2023 10:41 Total Protein 7.2 gm/dL (6.0 - 7.8) 09/17/2023 10:41 Albumin Lvl 4.0 gm/dL (3.3 - 5.0) 09/17/2023 10:41 Globulin 3.2 gm/dL (1.4 - 4.0) 09/17/2023 10:41 A/G Ratio 1.3 (1.1 - 2.2) 09/17/2023 10:41 Bili Total 0.5 mg/dL (0.0 - 1.1) 09/17/2023 10:41 Chol 171 mg/dL (120 - 200) 09/17/2023 10:41 Trig ((H)) 602 mg/dL ( - <=149) 09/17/2023 10:41 HDL 35 mg/dL 09/17/2023 10:41 LDL Direct 64 mg/dL ( - <=129) 09/17/2023 10:41 VLDL (A) Unable to Calculate mg/dL (7 - 40) 09/17/2023 10:41 TSH 2.10 mcIU/mL (0.34 - 5.60) Patient informed and voices understanding. Normal [facility] Ambulatory Visit Summaryon 0 09-17-2023 Ambulatory Visit Summary NICOLE CARTER :1990 Visit Date:09/17/2023 Ambulatory Visit Instructions Your Diagnosis Wellness examination Breast cancer screening by mammogram Fatigue BMI 35.0-35.9,adult Non-smoker Your Care Team Attending Physician - Yocasta Vidal Primary Care Physician - Yocasta Vidal This Is Your Medications List atenolol (atenolol 25 mg Tab) citalopram (citalopram 40 mg Tab) lorazepam (Ativan 0.5 mg Tab) omeprazole (omeprazole 40 mg Cap-DR) Procedures Performed Gallbladder, Scoliosis. Discharge Vitals Heart Rate (Peripheral) 80 Respiratory Rate 18 Blood Pressure 108/80 Height 157.4 cm Height 62 in Weight 89.1 kg Weight 196.02 lb BMI 35.96 What to do next Scheduled Follow-Up Appointments September. 2023 10:20 AM EDT With: Yocasta Vidal Where: [facility] [place] Normal [facility] CBC w/ Auto Diffon 4 Basophils/100 WBC (Bld) 0.6 % Normal 0.0-2.0 [facility] Comment on above: Performed By: #### 1 [id number], 7623523, 4059723, 3999306, 1373895 ####[facility] [address] [place] [address] Basophils/Leukocytes Auto (Bld) [Pure # fraction] 0.1 E9/L Normal 0.0-0.2 [facility] Comment on above: Performed By: #### 1 5787879, 6435842, 3701731, 9544418, 1412680 ####[facility] [address] [place] [address] Eosinophils (Bld) [#/Vol] 0.3 E9/L Normal 0.0-0.5 [facility] Comment on above: Performed By: #### 1 8021837, 7958568, 0264726, 4220623, 9071830 ####[address] [address] Eosinophils/100 WBC (Bld) 3.7 % Normal 0.0-8.0 [facility] Comment on above: Performed By: #### 1 2824717, 7669256, 3590154, 2273225, 1128638 ####[address] [address] Erythrocyte distribution width (RBC) [Ratio] 13.8 % Normal 10.9-14.2 [facility] Comment on above: Performed By: #### 1 4046090, 8968544, 9564771, 6177354, 6039051 ####[address] [address] Hematocrit (Bld) [Volume fraction] 40.9 % Normal 34.0-46.0 [facility] Comment on above: Performed By: #### 1 3096775, 3881943, 2506632, 8002496, 8054169 ####[address] [address] Hemoglobin (Bld) [Mass/Vol] 13.6 g/dL Normal 12.0-16.0 [facility] Comment on above: Performed By: #### 1 6646872, 7628562, 2021124, 8700926, 0296572 ####[address] [address] Lymphocytes (Bld) [#/Vol] 2.9 E9/L Normal 1.0-4.0 [facility] Comment on above: Performed By: #### 1 1581479, 8703120, 3694354, 8707965, 9136642 ####[address] [address] Lymphocytes/100 WBC (Bld) 34.4 % Normal 14.0-50.0 [facility] Comment on above: Performed By: #### 1 0016341, 4986620, 8104408, 5942339, 0191328 ####[address] [address] MCH (RBC) [Entitic mass] 30.7 pg Normal 27.0-34.0 [facility] Comment on above: Performed By: #### 1 0842334, 0757113, 8027050, 1969398, 8370189 ####[address] [address] MCHC (RBC) [Mass/Vol] 33.3 g/dL Normal 31.4-36.0 [facility] Comment on above: Performed By: #### 1 5572775, 8965471, 3621481, 2516033, 3312360 ####[place] [address] MCV (RBC) [Entitic vol] 92.3 fL Normal 80.0-100.0 [facility] Comment on above: Performed By: #### 1 7923601, 7641524, 2139441, 7336549, 6431446 ####[place] [address] Monocytes (Bld) [#/Vol] 0.4 E9/L Normal 0.2-1.0 [facility] Comment on above: Performed By: #### 1 7788114, 3244216, 5822336, 1927236, 6570819 ####[address] [address] Neutrophils (Bld) [#/Vol] 4.7 E9/L Normal 2.0-7.5 [facility] Comment on above: Performed By: #### 1 8321335, 4525725, 2280144, 5513219, 5951674 ####[place] [address]257 Neutrophils/100 WBC (Bld) 56.7 % Normal 36.0-75.0 [facility] Comment on above: Performed By: #### 1 5895701, 8326997, 5228121, 7806465, 1902722 ####[place] [address] Platelet mean volume (Bld) [Entitic vol] 9.8 fL Normal 6.4-10.8 [facility] Comment on above: Performed By: #### 1 6096958, 1419932, 7246040, 8526823, 7012173 ####[facility] [address] [place] [address] Platelets (Bld) [#/Vol] 70.0 E9/L Low 150.0-500.0 [facility] Comment on above: Performed By: #### 1 3160088, 9607915, 9197527, 2434912, 2886425 ####[facility] [address] [place] [address] RBC (Bld) [#/Vol] 4.4 E12/L Normal 4.3-5.9 [facility] Comment on above: Performed By: #### 1 0356130, 3713205, 9708649, 9342163, 8800779 ####[facility] [address] [place] [address] WBC corrected for nucl RBC Auto (Bld) [#/Vol] 8.3 E9/L Normal 4.0-11.0 [facility] Comment on above: Performed By: #### 1 0661906, 4925687, 0939545, 9302465, 4557591 ####[facility] [address] [place] [address] CHEMISTRYOrdered By: SYSTEM SYSTEM on 09-17-2023 Albumin [Mass/Vol] 4.0 g/dL Normal 3.3 - 5.0 gm/dL Remisol Chem Albumin/Globulin [Mass ratio] 1.3 {ratio} Normal 1.1 - 2.2 Remisol Chem ALP [Catalytic activity/Vol] 66 [iU]/d Normal 21 - 98 Int._Unit/L Remisol Chem ALT No additional P-5'-P [Catalytic activity/Vol] 12 [iU]/d Normal 6 - 46 Int._Unit/L Remisol Chem Anion gap [Moles/Vol] 10 mmol/L Normal 6 - 16 mEq/L R emisol Chem AST [Catalytic activity/Vol] 11 [iU]/d Normal 5 - 43 Int._Unit/L Remisol Chem Bilirubin [Mass/Vol] 0.5 mg/dL Normal 0.0 - 1 .1 mg/dL [facility] Chem Calcium [Mass/Vol] 9.3 mg/dL Normal 8.9 - 11. 1 mg/dL [facility] Chem Chloride [Moles/Vol] 104 mmol/L Normal 101 - 1 11 mmol/L [facility] Chem Cholesterol [Mass/Vol] 171 mg/dL Normal 120 - 200 mg/dL [facility] Chem Cholesterol in HDL [Mass/Vol] 35 mg/dL Invalid Interpretation Code [facility] Comment on above: Result Comment: '>= 60 LOW RISK' '<= 40 HIGH RISK' Cholesterol in LDL [Mass/Vol] 64 mg/dL Normal <=129mg/dL [facility] CO2 [Moles/Vol] 27 mmol/L Normal 21 - 31 mmol/L [facility] Chem Creatinine [Mass/Vol] 0.7 mg/dL Normal 0.5 - 1.3 mg/dL Remisol Chem eGFR 116 mL/min/1.73 m2 Normal >=59mL/mi n/1 .73 m2 Remisol Chem Globulin (S) [Mass/Vol] 3.2 g/dL Normal 1.4 - 4.0 gm/dL Rem[facility] Chem Glucose [Mass/Vol] 91 mg/dL Normal 55 - 199 mg/dL Remisol Chem Potassium [Moles/Vol] 4.1 mmol/L Normal 3.5 - 5.3 mmol/L Remisol Chem Protein [Mass/Vol] 7.2 g/dL Normal 6.0 - 7.8 gm/dL Rem[facility] Chem Sodium [Moles/Vol] 137 mmol/L Normal 135 - 145 mmol/L Rem[facility] Chem Triglyceride [Mass/Vol] 602 mg/dL High <=149mg/dL Remisol Chem TSH Qn 2.10 m[IU]/L Normal 0.34 - 5.60 mcIU/mL [facility] Urea nitrogen [Mass/Vol] 11 mg/dL Normal 5 - 21 mg/dL [facility] Urea nitrogen/Creatinine [Mass ratio] 16 mg/mg Normal 10 - 20 Remisol Chem VLDL Unable to Calculate mg/dL Invalid Interpretation Code 7 - 40 mg/dL [facility] Comment on above: Result Comment: 'GERRY BLE TO REPORT. TRIG > 400 mg/dl' CMPon 09-17-2023 Albumin [Mass/Vol] 4.0 g/dL Normal 3.3-5.0 [facility] Comment on above: Performed By: #### 1 8222974, 7652356, 8083266, 2146954, 4580035 ####[facility] [address] [place] [address] Albumin/Globulin (S) [Mass conc ratio] 1.3 Normal 1.1-2.2 [facility] Comment on above: Performed By: #### 1 9408915, 2748764, 3954760, 2405727, 0655718 ####[facility] [address] [place] [address] ALP [Catalytic activity/Vol] 66 Int._Unit/L Normal 21-98 [facility] Comment on above: Performed By: #### 1 2036704, 3557866, 4022473, 0139610, 1567488 ####[facility] [address] [place] [address] ALT No additional P-5'-P [Catalytic activity/Vol] 12 Int._Unit/L Normal 6-46 [facility] Comment on above: Performed By: #### 1 5724067, 6142216, 4396288, 5690649, 7374429 ####[facility] [address] [place] [address] Anion gap [Moles/Vol] 10 mmol/L Normal 6-16 [facility] Comment on above: Performed By: #### 1 9130249, 4922122, 7000771, 5716404, 4595211 ####[facility] [address] [place] [address] AST [Catalytic activity/Vol] 11 Int._Unit/L Normal 5-43 [facility] Comment on above: Performed By: #### 1 3553390, 9113150, 6233602, 8283581, 6577487 ####[facility] [address] [place] [address] Bilirubin [Mass/Vol] 0.5 mg/dL Normal 0.0-1.[address] [facility] Comment on above: Performed By: #### 1 9346137, 6156685, 4674176, 7036502, 6917645 ####[facility] [address] [place] [address] Calcium [Mass/Vol] 9.3 mg/dL Normal 8.9-11.1 [facility] Comment on above: Performed By: #### 1 5331553, 4118733, 1631552, 5109693, 1478042 ####[facility] [address] [place] [address] Chloride [Moles/Vol] 104 mmol/L Normal 101-[address] [facility] Comment on above: Performed By: #### 1 0980236, 4078310, 3577298, 2876134, 4804588 ####[facility] [address] [place] [address] CO2 [Moles/Vol] 27 mmol/L Normal 21-31 [facility] [facility] Comment on above: Performed By: #### 1 [id number], [id number], 6032010, [id number], [id number] ####[facility] [address] [place] [address] Creatinine [Mass/Vol] 0.7 mg/dL Normal 0.5-1.3 [facility] Comment on above: Performed By: #### 1 [id number], 5921281, 0684921, 4060635, 6531066 ####[facility] [address] [place] [address] Globulin (S) [Mass/Vol] 3.2 g/dL Normal 1.4-4.0 [facility] Comment on above: Performed By: #### 1 [id number], [id number], 2496378, 0484914, 3383429 ####[facility] [address] [place] [address] Glucose [Mass/Vol] 91 mg/dL Normal 55-199 [facility] Comment on above: Performed By: #### 1 [id number], 0856993, 9892039, 8253992, 0136787 ####[facility] [address] [place] [address] Potassium [Moles/Vol] 4.1 mmol/L Normal 3.5-5.3 [facility] Comment on above: Performed By: #### 1 [id number], 0480510, 0674484, 6271520, 7375748 ####[facility] [address] [place] [address] Protein [Mass/Vol] 7.2 g/dL Normal 6.0-7.8 [facility] Comment on above: Performed By: #### 1 [id number], 7668354, 5939761, 2318489, 1382474 ####[address] [address] Sodium [Moles/Vol] 137 mmol/L Normal 135-145 [facility] Comment on above: Performed By: #### 1 [id number], 8440990, 6509363, 7889511, 2226767 ####[facility] [address] [place] [address] Urea nitrogen [Mass/Vol] 11 mg/dL Normal 5-21 [facility] Comment on above: Performed By: #### 1 [id number], 1538314, 9135910, 8467193, 5219102 ####[facility] [address] [place] [address] Urea nitrogen/Creatinine [Mass ratio] 16 No Units Normal 10-20 [facility] Comment on above: Performed By: #### 1 [id number], 2003866, 4539325, 6518950, 9315390 ####[facility] [address] [place] [address] Family Medicine Office/Clini c Noteon 09-17-2023 Family Medicine Office/Clinic Note HPI Staff Nicole is a 33 year old female presenting for yearly wellness Health Maintenance: Colonoscopy: n/a Dexa: n/a Mammo: 2022 normal, family hx mom with breast cancer. Would like order for [facility] Pap: May 2023 negative, Dr Geller in [place] Last Labs: nothing in the last year History of Present Illness pt presents today for wellness visit Review of Systems PHQ Score Initial Depression Screen Score: 0 SCORE Physical Exam Vitals & Measurements HR: 80(Peripheral) RR: 18 BP: 108/80 HT: 62 in HT: 157.4 cm WT: 89.1 kg WT: 196.02 lb BMI: 35.96 General: alert, no acute distress ENMT: oral mucosa moist, no pharyngeal erythema or exudate Cardiovascular: regular rate and rhythm, normal peripheral perfusion Respiratory: Lungs CTA, respirations non labored Extremities: no deformity, no trauma Neurological: oriented x 4, LOC appropriate for age, CN II-XII intact, motor strength equal & normal bilaterally, speech normal Assessment/Plan 1. Wellness examination (Z00.00: Encounter for general adult medical examination without abnormal findings) pt presents for wellness visit. has a couple complaints stated below. will draw annual lab work. x rays and mammogram also ordered. pt to return in 3 weeks to go over labs and to see if pain is improving in elbow and shoulder from gabapentin. may consider referral to pain management for injections. Ordered: CBC w/ Auto Diff Comprehensive Metabolic Panel Lab Specimen Collect [id number] Lipid Panel Thyroid Stimulating Hormone 2. Breast cancer screening by mammogram (Z12.31: Encounter for screening mammogram for malignant neoplasm of breast) order for mammogram given Ordered: CBC w/ Auto Diff Comprehensive Metabolic Panel Lab Specimen Collect 86084 Lipid Panel Thyroid Stimulating Hormone 3. Non-smoker (Z78.9: Other specified health status) continue not smoking Ordered: Lab Specimen Collect 80827 4. Right elbow pain (M25.521: Pain in right elbow) pt injured elbow a few months ago. and is struggling with lifting things and it aches and keeps her up at night. will order x ray 5. Left shoulder pain (M25.512: Pain in left shoulder) left shoulder continues to hurt. has tried meloxicam and steroid, has been doing stretches and heat but is still having pain that is also keeping her up at night. will order x ray. pt did not like how muscle relaxer made her feel. will try gabapentin 6. Family history of breast cancer (Z80.3: Family history of malignant neoplasm of breast) mammogram order provided 7. BMI 35.0-35.9,adult (Z68.35: Body mass index [BMI] 35.0-35.9, adult) BMI education complete Ordered: Lab Specimen Collect 76488 8. Fatigue (R53.83: Other fatigue) c/o fatigue Ordered: CBC w/ Auto Diff Comprehensive Metabolic Panel Lab Specimen Collect 20698 Lipid Panel Thyroid Stimulating Hormone Orders: amoxicillin, 875 mg = 1 tab(s), Oral, BID, X 7 day(s), # 14 tab(s), Refills(s) 0, Pharmacy: [facility]/pharmacy #[id number], 157.4, cm, 09/25/22 16:16:00 EDT, Height/Length Dosing, 93.3, kg, 09/25/22 16:16:00 EDT, Weight Dosing carisoprodol, 250 mg = 1 tab(s), Oral, Bedtime, PRN Insomnia, # 30 tab(s), Refills(s) 0, Pharmacy: [facility] #[id number], 157.4, cm, 09/25/22 16:16:00 EDT, Height/Length Dosing, 93.3, kg, 09/25/22 16:16:00 EDT, Weight Dosing celecoxib, 200 mg = 1 cap(s), Oral, Daily, # 90 cap(s), Refills(s) 0, Pharmacy: [facility] #[id number], 157.4, cm, 09/25/22 16:16:00 EDT, Height/Length Dosing, 93.3, kg, 09/25/22 16:16:00 EDT, Weight Dosing lorazepam, 0.5 mg = 1 tab(s), Oral, q12hr, PRN anxiety, # 20 tab(s), Refills(s) 0, Pharmacy: [facility] #72, 157.4, cm, 09/25/22 16:16:00 EDT, Height/Length Dosing, 93.3, kg, 09/25/22 16:16:00 EDT, Weight Dosing lorazepam, 0.5 mg = 1 tab(s), Oral, q12hr, PRN anxiety, # 20 tab(s), Refills(s) 0, Pharmacy: [facility]/pharmacy #[id number], 157.4, cm, 09/17/23 10:18:00 EDT, Height/Length Dosing, 89.1, kg, 09/17/23 10:18:00 EDT, Weight Dosing Follow-up No qualifying data available Problem List/Past Medical History Ongoing Adjustment disorder with depressed mood Anxiety disorder Breast cancer screening by mammogram Family history of breast cancer Fatigue Left shoulder pain Right elbow pain SVT (supraventricular tachycardia) Wellness examination Historical No qualifying data Procedure/Surgical History Gallbladder, Scoliosis. Medications atenolol 25 mg Tab, 25 mg= 1 tab(s), Oral, Daily, 1 refills Ativan 0.5 mg Tab, 0.5 mg= 1 tab(s), Oral, q12hr, PRN citalopram 40 mg Tab, 40 mg= 1 tab(s), Oral, Daily, 1 refills omeprazole 40 mg Cap-DR, 40 mg= 1 cap(s), Oral, Daily, 1 refills Allergies Zoloft (Unknown) predniSONE (Unknown) Social History Alcohol - Denies Alcohol Use, 09/23/2022 Substance Abuse - Denies Substance Abuse, 09/23/2022 Tobacco Never (less than 100 in lifetime) Tobacco Use:. Never Smokeless Tobacco Use:. Household tobacco concerns: No., 09/25/2022 Family H (more content not included)... Normal [facility] Comment on above: Result Comment: Elec tronically Signed By: Yocasta Vidal\.br\Date and Time Signed: 09/17/23 10:51 EDT HEMATOLOGYOrdered By: SYSTEM SYSTEM on 09-17-2023 Basophils/100 WBC (Bld) 0.6 % Normal 0.0 - 2.0 % Remisol Heme Basophils/Leukocytes Auto (Bld) [Pure # fraction] 0.1 E9/L Normal 0.0 - 0.2 E9/L [facility] Eosinophils (Bld) [#/Vol] 0.3 E9/L Normal 0.0 - 0.5 E9/L [facility] Eosinophils/100 WBC (Bld) 3.7 % Normal 0.0 - 8.0 % [facility] Erythrocyte distribution width (RBC) [Ratio] 13.8 % Normal 10.9 - 14.2 % [facility] Hematocrit (Bld) [Volume fraction] 40.9 % Normal 34.0 - 46.0 % [facility] Hemoglobin (Bld) [Mass/Vol] 13.6 g/dL Normal 12.0 - 16.0 gm/dL [facility] Lymphocytes (Bld) [#/Vol] 2.9 E9/L Normal 1.0 - 4.0 E9/L [facility] Lymphocytes/100 WBC (Bld) 34.4 % Normal 14.0 - 50.0 % [facility] MCH (RBC) [Entitic mass] 30.7 pg Normal 27.0 - 34.0 pg [facility] MCHC (RBC) [Mass/Vol] 33.3 g/dL Normal 31.4 - 36.0 gm/dL [facility] MCV (RBC) [Entitic vol] 92.3 fL Normal 80.0 - 100.0 fL [facility] Monocytes (Bld) [#/Vol] 0.4 E9/L Normal 0.2 - 1.0 E9/L [facility] Monocytes/100 WBC (Bld) 4.6 % Normal 4.0 - 14.0 % [facility] Neutrophils (Bld) [#/Vol] 4.7 E9/L Normal 2.0 - 7.5 E9/L [facility] Neutrophils/100 WBC (Bld) 56.7 % Normal 36.0 - 75.0 % [facility] Platelet mean volume (Bld) [Entitic vol] 9.8 fL Normal 6.4 - 10.8 fL [facility] Platelets (Bld) [#/Vol] 70.0 E9/L Low 150.0 - 500.0 E9/L [facility] RBC (Bld) [#/Vol] 4.4 E12/L Normal 4.3 - 5.9 E12/L [facility] WBC corrected for nucl RBC Auto (Bld) [#/Vol] 8.3 E9/L Normal 4.0 - 11.0 E9/L [facility] Lipid Panelon 09-17-2023 Cholesterol [Mass/Vol] 171 mg/dL Normal 120-200 [facility] Comment on above: Performed By: #### 1 [id number], 5950920, 1414135, 9706954, 3454729 ####[address] [place] [address] Cholesterol in HDL [Mass/Vol] 35 mg/dL Invalid Interpretation Code [facility] Comment on above: Result Comment: '>= 60 LOW RISK' '<= 40 HIGH RISK' Performed By: #### 1 [id number], 0191613, 0661775, 5772582, 9443023 ####[facility] [address] [place] [address] Cholesterol in LDL [Mass/Vol] 64 mg/dL Normal <=129 [facility] Comment on above: Performed By: #### 1 1575605, 4556282, 1959764, 9362316, 9340974 ####[facility] [address] [place] [address] Triglyceride [Mass/Vol] 602 mg/dL High <=149 [facility] Comment on above: Performed By: #### 1 1505374, 7781052, 1337526, 0595800, 9768191 ####[facility] [address] [place] [address] VLDL UTC Abnormal 7-40 [facility] Comment on above: Result Comment: 'GERRY BLE TO REPORT. TRIG > 400 mg/dl' Result verified by Discern Rule. Performed result UT (Unable to Calculate) was sent as an Alpha code due the inability to calculate a valid numeric value. Performed By: #### 1 [id number], 1346020, 0194574, 1095187, 3074365 ####[facility] [address] [place] [address] Medication Consenton 024 Medication Consent [id number] #1.00TIFF Normal [facility] Physician Orderon 09-17-2023 Physician Order [id number] #1.00TIFF Normal [facility] TSHon 09-17-2023 TSH Qn 2.10 m[IU]/L Normal 0.34-5.60 [facility] Comment on above: Performed By: #### 1 [id number], 8121907, 2805627, 4866444, 9931701 ####[facility] [address] [place] [address] eGFRon 09-17-2023 eGFR 116 mL/min/1.73 m2 Normal >=59 [facility] Comment on above: Order Comment: Order added by Discern Expert. Performed By: #### 1 [id number], 1073766, 6343786, 0097655, 2860695 ####[facility] [address] [place] [address] Provider Letteron 03-25-2023 Provider Letter March 25, 2023 NICOLE HUNTCARTER [address] [place] [phone] : 1990 To Whom It May Concern, Please excuse above patient from work today 03-25-23 due to daughters illness. Date of Illness: From: _03-25-23 To: 03-25-23 May Return to Work On:03-26-23 Restrictions: _ Comments: _ Sincerely, Normal [facility] Provider Letter March 25, 2023 NICOLE CARTER [address] [place] [phone] : 1990 To Whom It May Concern, Please excuse above patient from work today 03-25-23 due to daughters illness. Date of Illness: From: 03-25-23 To: 03-25-23 May Return to Work On:03-26-23 Restrictions: _ Comments: _ Sincerely, [place] [address] Normal [facility] Consultation Noteon 12-12-19 Consultation Note [id number] #1.00CD:127 Normal [facility] COVID Quick Testingon 2022 Result Negative [employer] Other CBC AUTO DIFFon 01-01-2019 Basophils (Bld) [#/Vol] 0.0 103/ul Normal 0.0-0.1 [facility] Comment on above: Performed By: #### C BC #### [facility] [address] [place], [place] [id number] Ephraim Brandi Basophils/100 WBC (Bld) 0.6 % Normal 0.2-2.0 [facility] Comment on above: Performed By: #### C BC #### [facility] [address] [place], [place] [id number] Ephraim Brandi Eosinophils (Bld) [#/Vol] 0.4 103/ul Normal 0.0-0.7 [facility] Comment on above: Performed By: #### C BC #### [facility] [address] [place], [place] [address] Ephraim Brandi Eosinophils/100 WBC (Bld) 5.7 % Normal 0.9-7.0 [facility] Comment on above: Performed By: #### C BC #### [facility] [address] [place] [address] Ephraim Brandi Erythrocyte distribution width (RBC) [Ratio] 12.8 % Normal 11.0-15.0 [facility] Comment on above: Performed By: #### C BC #### [facility] [address] [place] [address] Ephraim Brandi Hematocrit (Bld) [Volume fraction] 42.9 % Normal 36.0-48.0 [facility] Comment on above: Performed By: #### C BC #### [facility] [address] [place], [place] [address] Ephraim Brandi Hemoglobin (Bld) [Mass/Vol] 14.2 g/dL Normal 12.0-16.0 [facility] Comment on above: Performed By: #### C BC #### [facility] [address] [place] [address] Ephraim Brandi IG # 0.02 10e3/ul Normal 0.00-0.03 [facility] Comment on above: Performed By: #### C BC #### [facility] [address] [place] [address] Ephraim Brandi IG % 0.3 % Normal 0.0-0.5 [facility] Comment on above: Performed By: #### C BC #### [facility] [address] [place], [place] [address] Ephraim Brandi Lymphocytes (Bld) [#/Vol] 2.5 103/ul Normal 1.2-3.8 [facility] Comment on above: Performed By: #### C BC #### [facility] [address] [place], [place] [address] Ephraim Brandi Lymphocytes/100 WBC (Bld) 34.7 % Normal 20.5-60.0 [facility] Comment on above: Performed By: #### C BC #### [facility] [address] [place] [address] Ephraim Brandi MANUAL DIFF REQ NO Normal [facility] Comment on above: Performed By: #### C BC #### [facility] [address] [place], [place] [id number] Ephraim Brandi MCH (RBC) [Entitic mass] 31.8 pg Normal 26.7-34.0 [facility] Comment on above: Performed By: #### C BC #### [facility] [address] [place], [place] [address] Ephraim Brandi MCHC (RBC) [Mass/Vol] 33.1 g/dL Normal 29.9-35.2 [facility] Comment on above: Performed By: #### C BC #### [facility] [address] [place], [place] [address] Ephraim Brandi MCV (RBC) [Entitic vol] 96.0 fL Normal 81.0-99.0 [facility] Comment on above: Performed By: #### C BC #### [facility] [address] [place], [place] [address] Ephraim Brandi Monocytes (Bld) [#/Vol] 0.4 103/ul Normal 0.3-0.8 [facility] Comment on above: Performed By: #### C BC #### [facility] [address] [place], [place] [address] Ephraim Brandi Monocytes/100 WBC (Bld) 5.4 % Normal 1.7-12.0 [facility] Comment on above: Performed By: #### C BC #### [facility] [address] [place], [place] [address] Ephraim Brandi Neutrophils (Bld) [#/Vol] 3.8 103/ul Normal 1.4-6.5 [facility] Comment on above: Performed By: #### C BC #### [facility] [address] [place], [place] [address] Ephraim Brandi Neutrophils/100 WBC (Bld) 53.3 % Normal 43.0-75.0 [facility] Comment on above: Performed By: #### C BC #### [facility] [address] [place] [address] Ephraim Brandi Platelet mean volume (Bld) [Entitic vol] 10.5 fL Normal 9.5-13.5 [facility] Comment on above: Performed By: #### C BC #### [facility] [address] [place] [address] Ephraim Brandi Platelets (Bld) [#/Vol] 156 103/ul Normal 150-450 [facility] Comment on above: Performed By: #### C BC #### [facility] [address] [place] [address] Ephraim Brandi RBC (Bld) [#/Vol] 4.47 106/ul Normal 4.20-5.40 [facility] Comment on above: Performed By: #### C BC #### [facility] [address] [place] [address] Ephraim Brandi WBC (Bld) [#/Vol] 7.2 103/ul Normal 4.0-11.0 [facility] Comment on above: Performed By: #### C BC #### [facility] [address] [place] [address] Ephraim Brandi PROF CHEM 8 (BAS METB)on Anion gap [Moles/Vol] 8.2 mmol/L Normal [facility] Comment on above: Performed By: #### B MP #### [facility] [address] [place] [address] Epharim Brandi Calcium [Mass/Vol] 9.6 mg/dL Normal 8.4-10.2 [facility] Comment on above: Performed By: #### B MP #### [facility] [address] [place] [phone] Ephraim Brandi Chloride [Moles/Vol] 105 mmol/L Normal 98-107 [facility] Comment on above: Performed By: #### B MP #### [facility] [address] [place] [address] Ephraim Brandi CO2 [Moles/Vol] 29.8 mmol/L Normal 22.0-30.0 [facility] Comment on above: Performed By: #### B MP #### [facility] [address] [place] [address] Ephraim Brandi Creatinine [Mass/Vol] 0.71 mg/dL Normal 0.52-1.04 [facility] Comment on above: Performed By: #### B MP #### [facility] [address] [place] [address] Ephraim Brandi EGFR-AF ISRAELI >60 Normal >=60 [facility] Comment on above: Performed By: #### B MP #### [facility] [address] [place] [address] Ephraim Brandi EGFR-NON AF ISRAELI >60 Normal >=60 [facility] Comment on above: Performed By: #### B MP #### [facility] [address] [place] [address] Ephraim Brandi Glucose [Mass/Vol] 90 mg/dL Normal 74-106 [facility] Comment on above: Performed By: #### B MP #### [facility] [address] [place] [address] Ephraim Brandi Potassium [Moles/Vol] 4.0 mmol/L Normal 3.4-5.0 [facility] Comment on above: Performed By: #### B MP #### [facility] [address] [place] [address] Ephraim Brandi Sodium [Moles/Vol] 139 mmol/L Normal 137-145 [facility] Comment on above: Performed By: #### B MP #### [facility] [address] [place] [address] Ephraim Brandi Urea nitrogen [Mass/Vol] 9.0 mg/dL Normal 7.0-17.0 [facility] Comment on above: Performed By: #### B MP #### [facility] [address] [place] [address] Ephraim Paz Urea nitrogen/Creatinine [Mass ratio] 12.7 mg/mg Normal [facility] Comment on above: Performed By: #### B MP #### [facility] [address] [place] [id number] Ephraim Paz Social History Date Type Detail Facility Start: 11-02-2018 End: 07-17-2023 Sex Assigned At [facility] [employer] Other Start: 07-17-2023 Alcohol intake Current drinke r of alcohol (finding) [facility] Start: 11-02-2018 End: 07-17-2023 History of Social function [facility] Start: 09-25-2022 End: 10-09-2023 Tobacco smoking status Never smoked tobacco (finding) [facility] Start: 06-18-2022 End: 10-16-2023 Tobacco smoking status NHIS Ex-smoker [facility] Start: 06-18-2022 Tobacco use and exposure Smokeless tobacco non-user [facility] Start: 05-23-2021 Alcohol Comment rarely [facility] Start: 1990 Sex Assigned At Not on file P [facility] Unknown if ever smoked [facility] [employer] Other History of tobacco use Current smoker [facility] Adolescent depressio n screening assessment 5 [facility] Vital Signs Date Time Vital Sign Value Performing Clinician Facility 10-16-2023 09:12-0400 Body temperature 98.06 [degF] Brody Weston [facility] 10-16-2023 09:12-0400 Diastolic blood pressure 75 mm[Hg] Brody Weston [facility] 10-16-2023 09:12-0400 Heart rate 90 /min Brody Weston [facility] 10-16-2023 09:12-0400 Mean blood pressure 85 mm[Hg] Brody Ariza [facility] 10-16-2023 09:12-0400 Respiratory rate 16 /min Brody Weston [facility] 10-16-2023 09:12-0400 SaO2% (BldA) [Mass fraction] 98 % Brody Weston [facility] 10-16-2023 09:12-0400 Systolic blood pressure 106 mm[Hg] Brody Wetson [facility] 07-17-2023 13:04-0500 Body height 156.2 cm [facility] 07-17-2023 13:04-0500 Body mass index (BMI) [Ratio] 36.62 kg/m2 [facility] 07-17-2023 13:04-0500 Body weight 89.36 kg [facility] 07-17-2023 13:04-0500 Diastolic blood pressure 76 mm[Hg] [facility] 07-17-2023 13:04-0500 Systolic blood pressure 110 mm[Hg] [facility] 12-10-2022 13:55-0400 Body height 157.48 cm Letha Herring Other [employer] Other 12-10-2022 13:55-0400 Body mass index (BMI) [Ratio] 37.86 kg/m2 Letha Herring Other [employer] Other 12-10-2022 13:55-0400 Body temperature 97.7 [degF] Letha Herring Other [employer] Other 12-10-2022 13:55-0400 Body weight 93.9 kg Letha Herring Other [employer] Other 12-10-2022 13:55-0400 Diastolic blood pressure 85 mm[Hg] Letha Herring Other [employer] Other 12-10-2022 13:55-0400 Respiratory rate 18 /min Letha Herring Other [employer] Other 12-10-2022 13:55-0400 SaO2% (BldA) [Mass fraction] 100 % Letha Herring Other [employer] Other 12-10-2022 13:55-0400 Systolic blood pressure 122 mm[Hg] Letha Herring Other [employer] Other 08-29-2022 10:00-0400 Body height 157.48 cm Crista Perezmond Other [employer] Other 08-29-2022 10:00-0400 Body mass index (BMI) [Ratio] 36.03 kg/m2 Crista Perezmond Other [employer] Other 08-29-2022 10:00-0400 Body temperature 97.3 [degF] Crista Perezmond Other [employer] Other 08-29-2022 10:00-0400 Body weight 89.36 kg Crista Perezmond Other [employer] Other 08-29-2022 10:00-0400 Respiratory rate 18 /min Crista Perezmond Other [employer] Other 08-29-2022 10:00-0400 SaO2% (BldA) [Mass fraction] 98 % Crista Perezmond Other [employer] Other Clinical Notes 08-29-2022 to 10-16-2023 Sandra Winchester, POLI-EXHIBITION SPECIALIST - 07/17/2023 1:00 PM EST Note Date & Type Note Facility 10-16-2023 [facility] Discharg e instructions Patient Education 10/16/2023 09:22:28 Bone Marrow Aspiration and Bone Marrow Biopsy, Adult Bone Marrow Aspiration and Bone Marrow Biopsy, Adult Bone marrow aspiration and bone marrow biopsy are procedures that are done to diagnose blood disorders. These procedures may also be done to help diagnose cancer or certain infections. Bone marrow is the soft tissue that is inside the bones. Blood cells are produced in bone marrow. For bone marrow aspiration, a sample of tissue in liquid form is removed from inside the bone. For a bone marrow biopsy, a small sample of solid bone marrow tissue is removed. These samples are examined under a microscope or tested in a lab. You may need these procedures if you get an abnormal result on a blood test called a complete blood count (CBC). The aspiration or biopsy sample is usually taken from the upper part of the hip bone (iliac crest). Sometimes, an aspiration sample is taken from the chest bone (sternum). Tell a health care provider about: Any allergies you have. All medicines you are taking, including vitamins, herbs, eye drops, creams, and lavg-ueg-ysmkzmv medicines. Any problems you or family members have had with anesthetic medicines. Any blood or bone disorders you have. Any surgeries you have had. Any medical conditions you have. Any recent infections you have had, including skin infections. Whether you are or may be . What are the risks? Generally, this is a safe procedure. However, problems may occur, including: Bleeding. Infection. Persistent pain after the procedure. Cracking (fracture) of the bone. Allergic reactions to medicines. Damage to nearby organs, if the sample is taken from the sternum. What happens before the procedure? Staying hydrated Follow instructions from your health care provider about hydration, which may include: Up to 2 hours before the procedure you may continue to drink clear liquids, such as water, clear fruit juice, black coffee, and plain tea. Eating and drinking restrictions Follow instructions from your health care provider about eating and drinking, which may include: 8 hours before the procedure stop eating heavy meals or foods, such as meat, fried foods, or fatty foods. 6 hours before the procedure stop eating light meals or foods, such as toast or cereal. 6 hours before the procedure stop drinking milk or drinks that contain milk. 2 hours before the procedure stop drinking clear liquids. Medicines Ask your health care provider about: Changing or stopping your regular medicines. This is especially important if you are taking diabetes medicines or blood thinners. Taking medicines such as aspirin and ibuprofen. These medicines can thin your blood. Do not take these medicines unless your health care provider tells you to take them. Taking ustp-iya-tpntaco medicines, vitamins, herbs, and supplements. General instructions Plan to have someone take you home from the hospital or clinic. If you will be going home right after the procedure, plan to have someone with you for 24 hours. Ask your health care provider: ?How your surgery site will be marked. ?What steps will be taken to help prevent infection. These may include: ?Removing hair at the surgery site. ? Washing skin with a germ-killing soap. What happens during the procedure? An IV may be inserted into one of your veins. You will be given one or more of the following: ?A medicine to help you relax (sedative). ?A medicine to numb the area (local anesthetic). ?A medicine to make you fall asleep (general anesthetic). The bone marrow sample will be removed as follows: ?For an aspiration, a hollow needle will be inserted through your skin and into your bone. Bone marrow fluid will be drawn up into a syringe. ?For a biopsy, your health care provider will use a hollow needle to remove a small sample of solid tissue from your bone marrow. The needle will be removed. Bone marrow fluid or tissue will be sent to a lab for examination. A bandage (dressing) will be placed over the insertion site and taped in place. The procedure may vary among health care providers and hospitals. What happens after the procedure? Your blood pressure, heart rate, breathing rate, and blood oxygen level will be monitored until you leave the hospital or clinic. Your IV will be removed, and the insertion site will be checked for bleeding. Do not drive for 24 hours if you were given a sedative during your procedure. It is up to you to get the results of your procedure. Ask your health care provider, or the department that is doing the procedure, when your results will be ready. Summary Bone marrow aspiration and bone marrow biopsy are procedures that are done to diagnose blood disorders. These procedures may also be done to help diagnose cancer or certain infections. Before the procedure, tell your health care provider about all medicines you are taking, including vitamins, herbs, eye drops, creams, and mblo-pgi-ohadjfd medicines. Plan to have someone take you home from the hospital or clinic. During the aspiration procedure, a sample of tissue in liquid form is removed from inside the bone. For a bone marrow biopsy, a small sample of solid bone marrow tissue is removed. After the procedure, you will be monitored and checked for bleeding. This information is not intended to replace advice given to you by your health care provider. Make sure you discuss any questions you have with your health care provider. Document Revised: 09/28/2019 Document Reviewed: 09/28/2019 [facility] MD Patient Education 2022 [facility] Follow Up Care 10/15/2023 13:32:38 With:Brody Weston DO, ONC Address: [facility] [place] [address]- [phone] Fax Business (1) When: Unknown Comments:weekly cbc,check zinc and copper with next labs.f/u in 1 month. [facility] 10-09-2023 Evaluation + Plan note Diagnostic Tests PendingPath. Review 10/09/23 [facility] 07-17-2023 History of Presen t illness Narrative Annual Well Woman Visit 07/17/2023 Cecilio Carter is a 33 y.o. 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 Periods are regular every 28-30 days, lasting 5 days. Dysmenorrhea:none. Cyclic symptoms include none. Denies intermenstrual bleeding, spotting, or abnormal discharge. Denies pelvic pain. Patient declines STD testing today. Complaints today: last cycle last month was irregular spotting. Pt c/o right sided breast lump-pt popped it and pus did come out. Relationship status: in a relationship The patient reports that there is not domestic violence in her life. 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 [employer] Former smoker, quit years ago Children YES How many Two vaginal delivery Current contraception: coitus interruptus History of abnormal Pap smear: no Last pap: -NEG Regular self breast exam: yes Last mammogram: 06/20/22 Family history of breast cancer: yes - MOTHER in her 30s Family history of uterine or ovarian cancer: no Family history of pancreatic or prostate cancer: no Family history of colon cancer: yes - M GRANDMA Covid vaccinated: NO HPV vaccinated: NO PHQ9 depression screenin LMP 06/10/2023 OB History 3 Para 2 Term 1 1 AB 1 Living 1 SAB 1 IAB Ectopic Multiple Live Births 1 The following portions of the patient's history were reviewed and updated as appropriate: allergies, current medications, past family history, past medical history, past social history, past surgical history and problem list. MEDICAL HX Past Medical History: Diagnosis Date Anxiety Depression Scoliosis SURGICAL HX Past Surgical History: Procedure Laterality Date BACK SURGERY CHOLECYSTECTOMY FAMILY HX Family History Problem Relation Age of Onset Breast cancer Mother 36 Hypertension Father Colon cancer Maternal Grandfather MEDS Current Outpatient Medications Medication Sig Dispense Refill atenoloL (TENORMIN) 25 mg tablet Take 1 tablet (25 mg total) by mouth in the morning. Takes it in quarters . citalopram (CeleXA) 40 mg tablet Take 1 tablet (40 mg total) by mouth in the morning. omeprazole (PriLOSEC) 20 mg capsule Take 2 capsules (40 mg total) by mouth in the morning. No current facility-administered medications for this visit. ALLERGIES Allergies Allergen Reactions Prednisone Palpitations Zoloft [Sertraline] Palpitations Review of Systems Constitutional: Negative. Respiratory: Negative. Negative for chest tightness and shortness of breath. Cardiovascular: Negative. Negative for chest pain and palpitations. Gastrointestinal: Negative. Negative for constipation, diarrhea, nausea and vomiting. Endocrine: Negative. Genitourinary: Negative. Negative for dyspareunia and pelvic pain. Musculoskeletal: Negative. Skin: Negative. Allergic/Immunologic: Negative. Neurological: Negative. Hematological: Negative. Psychiatric/Behavioral: Negative. Objective BP 110/76 Ht 156.2 cm (5' 1.5 ) Wt 89.4 kg (197 lb) LMP 06/10/2023 (Approximate) BMI 36.62 kg/m Physical Exam Vitals and nursing note reviewed. Constitutional: Appearance: Normal appearance. HENT: Head: Normocephalic and atraumatic. Cardiovascular: Rate and Rhythm: Regular rhythm. Pulses: Normal pulses. Heart sounds: Normal heart sounds. Pulmonary: Effort: Pulmonary effort is normal. Breath sounds: Normal breath sounds. Chest: Breasts: Breasts are symmetrical. Right: Normal. No mass, skin change or tenderness. Left: Normal. No mass, skin change or tenderness. Abdominal: General: Bowel sounds are normal. Palpations: Abdomen is soft. Genitourinary: General: Normal vulva. Labia: Right: No rash or lesion. Left: No rash or lesion. Vagina: Normal. Cervix: Normal. Musculoskeletal: General: Normal range of motion. Cervical back: Normal range of motion and neck supple. Skin: General: Skin is warm and dry. Neurological: Mental Status: She is alert and oriented to person, place, and time. Psychiatric: Mood and Affect: Mood normal. Speech: Speech normal. Behavior: Behavior normal. Thought Content: Thought content normal. Judgment: Judgment normal. Assessment/Plan: Nicole was seen today for gynecologic exam. Diagnoses and all orders for this visit: Well woman exam with routine gynecological exam Family hx-breast malignancy - Mammography screening bilateral with CAD; Future At high risk for breast cancer - Mammography screening bilateral with CAD; Future Standardized adult depression screening tool completed BMI is above average; Discussed eating tips for weight loss and and exercise steps. Breast self exam technique reviewed and patient encouraged to perform self-exam monthly. Discussed healthy lifestyle modifications. Educational material distributed. 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 Follow up as needed. Next pap due 2025 per ASCCP guidelines. Discussed taking a multivitamin. Discussed Calcium and Vitamin D for prevention of osteoporosis. HPV vaccine is recommended between 9-45 yo. Can be received at [facility] or the [email or web address] department. Discussed need for yearly mammogram after 40 yo. Discussed colon cancer screening recommendations to begin at 45 yo, patient to discuss with PCP. All questions answered. NAREN Villanueva APRN-CNP Lisa M Franco, APRN-CNP 07/17/23 1329 documented in this encounter [facility] 12-10-2022 Evaluation note Encounter Date Diagnosis Assessment Notes Nov, Strain of neck muscle, initial encounter (ICD-10 - S16.1XXA) Discussed diagnosis with patient. Advised patient to take rx medication as directed. May use OTC Tylenol and icy hot application for additional relief. Encouraged warm compresses, light stretches, and massage may also help with pain. Avoid strenuous activity, perform activity as tolerated. Follow up with PCP in 1 week if symptoms do not improve. Work note provided, no extension allowed. Immediate eval for chest pain, shortness of breath, fever, numbness or tingling, loss of bowel or bladder control, pain becomes severe, difficulty moving neck, back, arms or legs, dizziness, headache, or any other new or concerning symptoms arise. Patient verbalizes understanding and is agreeable to treatment plan. [employer] Other 04-06-2023 Evaluation note* Encounter Date Diagnosis Assessment Notes Treatment Notes Treatment Clinical Notes Aug, Contact with and (suspected) exposure to other viral communicable diseases (ICD-10 - Z20.828) Aug, Bronchitis (ICD-10 - J40) Acute bronchitis material was printed Drink plenty fluids, get plenty of rest. Take Tylenol or Motrin as needed for aches pains or fevers. Use the albuterol inhaler as prescribed for cough or shortness of breath. Follow-up with your family physician if no improvement in 2 to 3 days. [employer] Other Evaluation + Plan note Future Appointments Appointment Date:10/09/2023 10:20:00 AM Scheduled Provider:Yocasta Vidal Location[facility]ments Appointment Date:11/20/2023 09:30:00 AM Scheduled Provider:Brody Weston DO Location:.ONCOLOGY Appointment Type:ONC Office Visit 30 (FT) Diagnostic Tests Pending * CBC w/ Auto Diff 10/16/23 * Comprehensive Metabolic Panel 10/16/23 * Lactate Dehydrogenase 10/16/23 * Free K+L Lt Chains,Qn,S 10/16/23 * LYNNE and PE, Serum 10/16/23 * Folate Level 10/16/23 * Vitamin B12 Level 10/16/23 * Ferritin 10/16/23 * Iron Level 10/16/23 * Iron Percent Saturation 10/16/23 * Transferrin 10/16/23 * HCV Antibody RFX to Quant PCR 10/16/23 * Hep B Core Ab, IgM 10/16/23 * Hepatitis B Surface Antigen 10/16/23 * Hepatitis B Surface Antibody 10/16/23 * Hepatitis A Antibody IgM 10/16/23 * HIV Screen 4th Generation wRfx 10/16/23 * CBC w/ Auto Diff 10/22/23 * Copper Level 10/22/23 * Zinc Level 10/22/23 * CBC w/ Auto Diff 10[facility]29/23 [facility] Well woman exam with routine gynecological exam- Primary Routine gynecological examination Family hx-breast malignancy At high risk for breast cancer Standardized adult depression screening tool completed [facility] N[facility]ative - Reported* Type Description Date Medical History anxiety Medical History depression Surgical History cholecystectomy 2013 Hospitalization History see above [employer] Other History general Narrative - Reported* Type Description Date Medical History anxiety Medical History depression Medical History high blood pressure Medical History Esophageal reflux Surgical History cholecystectomy 2013 Hospitalization History see above [employer] Other Hospital course Narrative No data available for this section [facility] No data available for this section [facility] Attachments The following attachments cannot be sent through Care Everywhere. * Health Risks of a High BMI (Serbian) * Lowering Your Risk of Breast Cancer (Serbian) [facility] No data available for this section [facility] Summary Purpose Family History No Family History Records FoundNo Family History Records Found No data available for this section No data available for this section No Family History Records FoundNo Family History Records FoundNo Family History Records FoundNo Family History Records Found No data available for this section No Family History Records FoundNo Family History Records Found Advance Directives No Advanced Directives Records FoundNo Advanced Directives Records FoundNo Advanced Directives Records FoundNo Advanced Directives Records FoundNo Advanced Directives Records FoundNo Advanced Directives Records FoundNo Advanced Directives Records FoundNo Advanced Directives Records Found Additional Source Comments INFORMATION SOURCE (unrecogn ized section and content) DATE CREATED AUTHOR 01/09/2019 [facility] DATE CREATED AUTHOR AUTHOR'S ORGANIZ ATION 07/25/2023 [facility] DATE CREATED AUTHOR AUTHOR'S ORGANIZ ATION [facility]20[facility] DATE CREATED AUTHOR AUTHOR'S ORGANIZ ATION 10/19/2023 [facility] DATE CREATED AUTHOR AUTHOR'S ORGANIZ ATION 10/22/2023 [facility] REASON FOR VISIT (unrecogniz ed section and content) Reason Comments Gynecologic Exam Pt is here for el ma exam. Care Teams (unrecognized sec tion and content) [employer] Relationship Specialty Start Date End Date Dana Ramirez MD [address] [place] [address] PCP - General Family Medicine 05/23/21 FOR RECORDS PERTAINING TO PATIENTS WHO ARE OR HAVE BEEN ENROLLED IN A CHEMICAL DEPENDENCY/SUBSTANCEABUSE PROGRAM, SOME INFORMATION MAY BE OMITTED. This clinical summary was aggregated from multiple sources. Caution should be exercised in using it in the provision of clinical care. This summary normalizes information from multiple sources, and as a consequence, information in this document may materially change the coding, format and clinical context of patient data. In addition, data may be omitted in some cases. CLINICAL DECISIONS SHOULD BE BASED ON THE PRIMARY CLINICAL RECORDS. [employer] provides no warranty or guarantee of the accuracy or completeness of information in this document.
[2023-10-22 10:20] LABS: Basophils Percent Auto 0.4 % (0.2-2.0); Eosinophils Absolute Auto 0.3 10^3/uL (0.0-0.7); Hematocrit 38.8 % (36.0-48.0); Hemoglobin 12.7 g/dL (12.0-16.0); Immature Granulocytes Abs Auto 0.02 10^3/uL (0.00-0.03); Immature Granulocytes Pct Auto 0.2 % (0.0-0.5); Lymphocytes Absolute Auto 2.8 10^3/uL (1.2-3.8); Lymphocytes Percent Auto 30.9 % (20.5-60.0); Mean Corpuscular HGB Conc 32.7 g/dL (29.9-35.2); Mean Corpuscular Hemoglobin 30.8 pg (26.7-34.0); Mean Corpuscular Volume 93.9 fL (81.0-99.0); Mean Platelet Volume 12.2 fL (9.5-13.5); Monocytes Absolute Auto 0.3 10^3/uL (0.3-0.8); Monocytes Percent Auto 3.6 % (1.7-12.0); Neutrophils Absolute Auto 5.6 10^3/uL (1.4-6.5); Neutrophils Percent Auto 61.9 % (43.0-75.0); Platelet Count 62 10^3/uL (150-450); Red Blood Count 4.13 10^6/uL (4.20-5.40); Red Cell Distribution Width 13.6 % (11.0-15.0); White Blood Count 9.1 10^3/uL (4.0-11.0)
== END 2023-10-22 09:41 | disposition home or self-care (01) ==
LOC: LAB 09:45
PROVIDERS: PCP Nurse Practitioner; Visit Provider Internal Medicine
DX: D69.6 Thrombocytopenia, unspecified (principal)
CPT/HCPCS: 36415; 82525; 84630; 85025

== ENCOUNTER 2023-10-29 08:53 | Outpatient (OUT) | payer BC, SELFPAY ==
--- OUTSIDE RECORDS SUMMARY | 2023-10-29 08:58 | XMS_ITS | CCD ---
Author Organization [facility] Care Team Providers Care Hat Mender Name Role Phone DANA RAMIREZ Admitting Unavailable DANA RAMIREZ Attending Unavailable DANA RAMIREZ Referring Unavailable DANA RAMIREZ Consulting Unavailable Crista eHrnandez Unavailable Letha Herring Unavailable Dana Ramirez MD Primary Care Provider DANA RAMIREZ Referring Unavailable DANA RAMIREZ Primary Care Unavailable CotyYocasta Primary Care Physician Coty, Yocasta Ma Admitting Unavailable Coty, Yocasta Ma Attending Unavailable Coty, Yocasta Ma Attending Unavailable Coty, Yocasta Ma Attending Unavailable Coty, Yocasta Ma Attending Unavailable Coty, Yocasta L Admitting Unavailable Coty, Yocasta Ma Attending Unavailable Coty, Yocasta L Admitting Unavailable Coty, Yocasta Ma Attending Unavailable Brody Weston Attending Unavailable Coyt, Yocasta Ma Referring Unavailable Allergies Allergy Classification Reported Allergen(s) Allergy Type Date of Onset Reaction(s) Facility (1 source) desloratadine / Pseudoephedrine Drug Allergy 09-24-19 15 [facility] Repository (4 sources) predniSONE; Translations: [PREDNISONE] Drug Allergy 09-22-19 15 [facility] Repository (3 sources) Sertraline; Translations: [Zoloft] Drug Allergy 09-22-19 15 [facility] Repository (2 sources) Ciprofloxacin Drug Allergy Unknown [employer] Other (7 sources) Sertraline; Translations: [SERTRALINE] Drug Allergy 05-23-20 21 Palpitations, Unknown (qualifier value) [employer] Other (4 sources) predniSONE; Translations: [prednisone] Drug Allergy 05-23-20 21 Palpitations, Unknown (qualifier value) [facility] Medications Current Medications Medication Drug Class(es) Dates Sig (Normalized) Sig (Original) atenolol 25 mg oral tablet (6 sources) beta-Adrenergic Mark Start: 09-09-2023 take 1 tablet by mouth once daily atenolol 25 mg Tab 25 mg = 1 tab(s), Oral, Daily, # 90 tab(s), Refills(s) 1, Pharmacy: [facility]/pharmacy #[id number], 157.4, cm, 09/25/22 16:16:00 EDT, Height/Length Dosing, 93.3, kg, 09/25/22 16:16:00 EDT, Weight Dosing Start Date: 09/09/23 Status: Ordered take 1 tablet by mouth in the mo rning atenoloL (TENORMIN) 25 mg tablet Take 1 tablet (25 mg total) by mouth in the morning. Takes it in quarters . 0 Active Atenolol Active citalopram 40 mg oral tablet (6 sources) Serotonin Reuptake Inhibitor Start: 09-09-2023 take 1 tablet by mouth once daily citalopram 40 mg Tab 40 mg = 1 tab(s), Oral, Daily, # 90 tab(s), Refills(s) 1, Pharmacy: [facility]/pharmacy #[id number], 157.4, cm, 09/25/22 [...] BID, # 60 cap(s), Refills(s) 0, Pharmacy: [facility]/pharmacy #[id number], 157.4, cm, 10/09/23 [...] anxiety, # 20 tab(s), Refills(s) 0, [id number] 157.4, cm, 09/17/23 10:18:00 EDT, Height/Length [...] Daily, # 90 tab(s), Refills(s) 1, Pharmacy: [facility]/pharmacy #[id number], 157.4, cm, 09/25/22 16:16:00 EDT, Height/Length Dosing, 93.3, kg, 09/25/22 16:16:00 EDT, Weight Dosing Start Date: 09/11/23 Status: Ordered take 2 capsules by mouth in the morning omeprazole (PriLOSEC) 20 mg capsule Take 2 capsules (40 mg total) by mouth in the morning. 0 Active Omeprazole Activ e Completed/Discontinued Medications Medication Drug Class(es) Dates Sig (Normalized) Sig (Original) [id number] 200 actuat albuterol 0.09 mg/actuat metered dose [...] mL 0 07/16/2022 07/17/2023 Discontinued (Side effects) Problems Active Problems Problem Classification Problem Date [...] Episodic Unclassified (1 source) Onset: 07-17-2023 07-17-2023 Results Test Name Value Interpretation Reference Range Facility RAD - MISCon 10-21-2023 RAD - MISC [id number] #1.00TIFF Normal [facility] Oncology Progress Noteon Oncology Progress Note Chief Complaint New patient Thrombocytopenia; no concerns Diagnoses Thrombocytopenia (D69.6: Thrombocytopenia, unspecified) Thrombocytosis (D75.839: Thrombocytosis, unspecified) Oncological History/ROS/PE/Asses sment and Plan HPI 33-year-old female referred for thrombocytopenia by her primary care provider Yocasta Ansari [facility]. Medical history includes depression, anxiety, hypertension, reflux. Outpatient medications include atenolol, gabapentin, Celexa, Prilosec, albuterol as needed. She is not a regular drinker she works in an [employer]. Review of CBC from September 17, [...] When Contact Information Brody Weston DO, ONC [facility] [address] [place] [address]- [phone] Fax Business (1) Additional Instructions: weekly cbc, [...] % 10/09/23 Lymph Auto 34.4 % 09/17/23 Neosho Auto 4.6 % 10/09/23 [place]ho Auto 4.6 % 09/17/23 Eos Auto 4.6 % 10/09/23 Eos Auto 3.7 % 09/17/23 Basophil Auto 0.7 % 10/09/23 Basophil Auto 0.6 % 09/17/23 Neutro Absolute 3.1 E9/L 10/09/23 Neutro Absolute 4.7 E9/L 09/17/23 Lymph Absolute 2 E9/L 10/09/23 Lymph Absolute 2.9 E9/L 09/17/23 Neosho Absolute 0.3 E9/L 10/09/23 [place] Absolute 0.4 E9/L 09/17/23 Eos Absolute 0.3 [...] Bili Total (more content not included)... Normal [facility] Outside Labson 10-17-2023 Outside Labs [id number] 4#1.00TIFF [facility] Consent for Treatmenton 09-24 Consent for Treatment [id number] #1.00TIFF Normal [facility] ED Pat Eduon 10-16-2023 ED Pat Edu Oncology Bone Marrow Aspiration and Bone [...] including vitamins, herbs, eye drops, creams, and wjxh-xad-slgatec medicines. ? Any problems you or family [...] tells you to take them. ? Taking pfde-msf-nsqtxbc medicines, vitamins, herbs, and supplements. General instructions [...] procedure, te (more content not included)... Normal [facility] HIPAA Forms Officeon 024 HIPAA Forms Office [id number]# 1.00TIFF Normal [facility] Outside Labson 10-16-2023 Outside Labs [id number] 9#1.00TIFF Normal [facility] Physician Orderon 10-16-2023 Physician Order [id number] 80#1.00TIFF Normal [facility] Physician Orderon 10-15-2023 Physician Order [id number] 8#1.00TIFF Normal [facility] Path. Reviewon 10-10-2023 Path Review Peripheral Blood Smear: Invalid Interpretation Code [facility] Comment on above: Order Comment: Order added by Kandi Expert Performed By: #### 1 [id number] #### [facility] Laboratory [address] [place] [address] Path. Review Peripheral Blood Smear: - RBCs: Normochromic and normocytic - WBCs: Within normal limits - Platelet: Decreased Invalid Interpretation Code [facility] Comment on above: Other Comment: Order added by Kandi Expert Ambulatory Visit Summaryon 0 10-09-2023 Ambulatory [...] Mouth 2 times a day Pickup at [facility]/pharmacy #[id number] Unchanged atenolol (atenolol 25 mg Tab) 1 [...] Capsules By Mouth Every day Pharmacy Information [id number]: [address] [place], [place] [phone] Allergies Zoloft (Unknown) predniSONE (Unknown) Problems Ongoing [...] for choosing us for your care. Normal [facility] CBC w/ Auto Diffon 4 Basophils/100 WBC (Bld) 0.7 % Normal 0.0-2.0 [facility] Comment on above: Performed By: #### 2 [id number] #### [facility] Laboratory [address] [place] [address] Basophils/Leukocytes Auto (Bld) [Pure # fraction] 0.0 E9/L Normal 0.0-0.2 [facility] Comment on above: Performed By: #### 2 468458 #### [facility] Laboratory [address] [place] [address] Eosinophils (Bld) [#/Vol] 0.3 E9/L Normal 0.0-0.5 [facility] Comment on above: Performed By: #### 2 585855 #### [facility] Laboratory [address] [place] [address] Eosinophils/100 WBC (Bld) 4.6 % Normal 0.0-8.0 [facility] Comment on above: Performed By: #### 2 422243 #### [facility] Laboratory [address] [place] [address] Erythrocyte distribution width (RBC) [Ratio] 13.6 % Normal 10.9-14.2 [facility] Comment on above: Performed By: #### 2 686357 #### [facility] Laboratory [address] [place] [address] Hematocrit (Bld) [Volume fraction] 39.5 % Normal 34.0-46.0 [facility] Comment on above: Performed By: #### 2 669482 #### [facility] Laboratory [address] [place] [address] Hemoglobin (Bld) [Mass/Vol] 13.4 g/dL Normal 12.0-16.0 [facility] Comment on above: Performed By: #### 2 103209 #### [facility] Laboratory [address] [place] [address] Lymphocytes (Bld) [#/Vol] 2.0 E9/L Normal 1.0-4.0 [facility] Comment on above: Performed By: #### 2 439761 #### [facility] Laboratory [address] [place] [address] Lymphocytes/100 WBC (Bld) 35.9 % Normal 14.0-50.0 [facility] Comment on above: Performed By: #### 2 056976 #### [facility] Laboratory [address] [place] [address] MCH (RBC) [Entitic mass] 30.9 pg Normal 27.0-34.0 [facility] Comment on above: Performed By: #### 2 999019 #### [facility] Laboratory [address] [place] [address] MCHC (RBC) [Mass/Vol] 34.0 g/dL Normal 31.4-36.0 [facility] Comment on above: Performed By: #### 2 566382 #### [facility] Laboratory [address] [place] [address] MCV (RBC) [Entitic vol] 90.9 fL Normal 80.0-100.0 [facility] Comment on above: Performed By: #### 2 142810 #### [facility] Laboratory [address] [place] [address] Monocytes (Bld) [#/Vol] 0.3 E9/L Normal 0.2-1.0 [facility] Comment on above: Performed By: #### 2 488125 #### [facility] Laboratory [address] [place] [address] Neutrophils (Bld) [#/Vol] 3.1 E9/L Normal 2.0-7.5 [facility] Comment on above: Performed By: #### 2 861774 #### [facility] Laboratory [address] [place] [address] Neutrophils/100 WBC (Bld) 54.2 % Normal 36.0-75.0 [facility] Comment on above: Performed By: #### 2 252912 #### [facility] Laboratory [address] [place] [address] Platelet mean volume (Bld) [Entitic vol] 10.1 fL Normal 6.4-10.8 [facility] Comment on above: Performed By: #### 2 338073 #### [facility] Laboratory [address] [place] [address] Platelets (Bld) [#/Vol] 33.0 E9/L Abnormal 150.0-500.0 [facility] Comment on above: Result Comment: Resu lts called to DR. MICHELLE by [id number] and read back on 10/09/2023 19:59:47. Performed By: #### 2 626235 #### [facility] Laboratory [address] [place] [address] RBC (Bld) [#/Vol] 4.3 E12/L Normal 4.3-5.9 [facility] Comment on above: Performed By: #### 2 242499 #### [facility] Laboratory [address] [place] [address] RBC size Nom (Bld) NORMAL Invalid Interpretation Code [facility] Comment on above: Performed By: #### 2 608389 #### [facility] Laboratory [address] [place] [address] WBC corrected for nucl RBC Auto (Bld) [#/Vol] 5.7 E9/L Normal 4.0-11.0 [facility] Comment on above: Performed By: #### 2 567993 #### [facility] Laboratory [address] [place] [address] CHEMISTRYOrdered By: SYSTEM SYSTEM on 10-09-2023 Iron [...] first if no relief will refer to [facility] pain management for possible injection. 3. [...] bedtime), # 30 cap(s), Refills(s) 0, Pharmacy: [facility]/pharmacy #[id number], 157.4, cm, 09/17/23 10:18:00 EDT, Height/Length Dosing, 89.1, kg, 09/17/23 10:18:00 EDT, Weight Dosing gabapentin, 300 mg = 1 cap(s), Oral, BID, # 60 cap(s), Refills(s) 0, Pharmacy: [facility]/pharmacy #[id number], 157.4, cm, 10/09/23 [...] Primary malignant neoplasm of female breast: Mother. [facility] Comment on above: Result Comment: Elec tronically [...] Resu lts called to DR. MICHELLE by [id number] and read back on 10/09/2023 19:59:47. RBC (Bld) [#/Vol] 4.3 E12/L Normal 4.3 - 5.9 E12/L Remisol Heme RBC size Nom (Bld) NORMAL *NA* (10/09/23 10:59 AM) Invalid Interpretation Code Remisol Heme WBC corrected for nucl RBC Auto (Bld) [#/Vol] 5.7 E9/L Normal 4.0 - 11.0 E9/L Remisol Heme Ironon 10-09-2023 Iron [Mass/Vol] 86 microgram/dL Normal 35-153 [facility] Comment on above: Performed By: #### 2 057373 #### [facility] Laboratory [address] [place] [address] TIBC Calculatedon 10-09-2023 Iron binding capacity [Mass/Vol] 357 microgram/dL Normal 250-400 [facility] Comment on above: Performed By: #### 1 [id number] #### [facility] Laboratory [address] [place] [address] Transferrin [Mass/Vol] 255 mg/dL Normal 200-370 [facility] Comment on above: Performed By: #### 1 [id number] #### [facility] Laboratory [address] [place] [address] Outside Mammographyon 2023 Outside Mammography [id number] #1.00TIFF Normal [facility] RAD - MISCon 09-24-2023 RAD - MISC [id number] #1.00TIFF Normal [facility] Reminderson 09-18-2023 Reminders - From: Yocasta Vidal [...] 34.4 % (14.0 - 50.0) 09/17/2023 10:41 Neosho Auto 4.6 % (4.0 - 14.0) 09/17/2023 10:41 Eos Auto 3.7 % (0.0 - 8.0) 09/17/2023 10:41 Basophil Auto 0.6 % (0.0 - 2.0) 09/17/2023 10:41 Neutro Absolute 4.7 E9/L (2.0 - 7.5) 09/17/2023 10:41 Lymph Absolute 2.9 E9/L (1.0 - 4.0) 09/17/2023 10:41 Neosho Absolute 0.4 E9/L (0.2 - 1.0) 09/17/2023 [...] 5.60) Patient informed and voices understanding. Normal [facility] Ambulatory Visit Summaryon 0 09-17-2023 Ambulatory Visit [...] 10:20 AM EDT With: Yocasta Vidal Where: [facility] [place] Normal [facility] CBC w/ Auto Diffon 4 Basophils/100 WBC (Bld) 0.6 % Normal 0.0-2.0 [facility] Comment on above: Performed By: #### 1 [id number], 1188128, 0626943, 8904142, 1700313 ####[address] [address] Basophils/Leukocytes Auto (Bld) [Pure # fraction] 0.1 E9/L Normal 0.0-0.2 [facility] Comment on above: Performed By: #### 1 7356850, 2382216, 6578747, 1960358, 0862932 ####[address] [address] Eosinophils (Bld) [#/Vol] 0.3 E9/L Normal 0.0-0.5 [facility] Comment on above: Performed By: #### 1 0289887, 3334589, 1981934, 3888280, 2737745 ####[address] [address] Eosinophils/100 WBC (Bld) 3.7 % Normal 0.0-8.0 [facility] Comment on above: Performed By: #### 1 8921267, 2699715, 1627369, 9273224, 2377666 ####[address] [address] Erythrocyte distribution width (RBC) [Ratio] 13.8 % Normal 10.9-14.2 [facility] Comment on above: Performed By: #### 1 7576421, 6031777, 5506415, 7449220, 8202263 ####[address] [address] Hematocrit (Bld) [Volume fraction] 40.9 % Normal 34.0-46.0 [facility] Comment on above: Performed By: #### 1 9796601, 8987724, 5978486, 3932602, 8910279 ####[address] [address] Hemoglobin (Bld) [Mass/Vol] 13.6 g/dL Normal 12.0-16.0 [facility] Comment on above: Performed By: #### 1 8142522, 2822742, 8050351, 0878248, 2307762 ####[address] [address] Lymphocytes (Bld) [#/Vol] 2.9 E9/L Normal 1.0-4.0 [facility] Comment on above: Performed By: #### 1 4488603, 6664096, 0040528, 9239609, 2238673 ####[place] [address] Lymphocytes/100 WBC (Bld) 34.4 % Normal 14.0-50.0 [facility] Comment on above: Performed By: #### 1 9801333, 8638875, 8159523, 1105071, 3355503 ####[place] [address] MCH (RBC) [Entitic mass] 30.7 pg Normal 27.0-34.0 [facility] Comment on above: Performed By: #### 1 9583192, 8624051, 6525265, 9127983, 8575829 ####[place] [address] MCHC (RBC) [Mass/Vol] 33.3 g/dL Normal 31.4-36.0 [facility] Comment on above: Performed By: #### 1 1549221, 2110730, 5050877, 0892542, 8322919 ####[place] [address] MCV (RBC) [Entitic vol] 92.3 fL Normal 80.0-100.0 [facility] Comment on above: Performed By: #### 1 9370885, 6933557, 3860508, 0992803, 3084831 ####[place] [address] Monocytes (Bld) [#/Vol] 0.4 E9/L Normal 0.2-1.0 [facility] Comment on above: Performed By: #### 1 0409113, 4742163, 9194031, 0348077, 6796011 ####[facility] [address] [place] [address] Neutrophils (Bld) [#/Vol] 4.7 E9/L Normal 2.0-7.5 [facility] Comment on above: Performed By: #### 1 7666030, 3975680, 2717417, 2248877, 3881192 ####[address] [address] Neutrophils/100 WBC (Bld) 56.7 % Normal 36.0-75.0 [facility] Comment on above: Performed By: #### 1 1421933, 1614800, 5342616, 9211848, 4101097 ####[address] [address] Platelet mean volume (Bld) [Entitic vol] 9.8 fL Normal 6.4-10.8 [facility] Comment on above: Performed By: #### 1 4870080, 4890203, 1806995, 1583464, 4691024 ####[address] [address] Platelets (Bld) [#/Vol] 70.0 E9/L Low 150.0-500.0 [facility] Comment on above: Performed By: #### 1 4994306, 5357214, 4462728, 4630212, 9290552 ####[address] [address] RBC (Bld) [#/Vol] 4.4 E12/L Normal 4.3-5.9 [facility] Comment on above: Performed By: #### 1 6234027, 5059466, 0487331, 3584848, 8716778 ####[address] [address] WBC corrected for nucl RBC Auto (Bld) [#/Vol] 8.3 E9/L Normal 4.0-11.0 [facility] Comment on above: Performed By: #### 1 3868793, 3659180, 9207734, 4087600, 6113535 ####[facility] [address] [place] [address] CHEMISTRYOrdered By: SYSTEM SYSTEM on 09-17-2023 Albumin [...] 09-17-2023 Albumin [Mass/Vol] 4.0 g/dL Normal 3.3-5.0 [facility] Comment on above: Performed By: #### 1 6207311, 9903815, 1213787, 5457331, 6910996 ####[facility] [address] [place] [address] Albumin/Globulin (S) [Mass conc ratio] 1.3 Normal 1.1-2.2 [facility] Comment on above: Performed By: #### 1 5626044, 8996486, 2956424, 6220892, 0027581 ####[facility] [address] [place] [address] ALP [Catalytic activity/Vol] 66 Int._Unit/L Normal 21-98 [facility] Comment on above: Performed By: #### 1 9582409, 1995259, 8863420, 8165094, 2909064 ####[facility] [address] [place] [address] ALT No additional P-5'-P [Catalytic activity/Vol] 12 Int._Unit/L Normal 6-46 [facility] Comment on above: Performed By: #### 1 3323425, 3288272, 2236127, 1240842, 0808860 ####[facility] [address] [place] [address] AST [Catalytic activity/Vol] 11 Int._Unit/L Normal 5-43 [facility] Comment on above: Performed By: #### 1 2094383, 8817391, 1017275, 7392585, 3198564 ####[facility] [address] [place] [address] Bilirubin [Mass/Vol] 0.5 mg/dL Normal 0.0-1.1 [facility] Comment on above: Performed By: #### 1 5913032, 1447279, 5927362, 3459660, 9810419 ####[address] [address] Globulin (S) [Mass/Vol] 3.2 g/dL Normal 1.4-4.0 [facility] Comment on above: Performed By: #### 1 2813092, 7804451, 9075562, 1917414, 3556029 ####[facility] [address] [place] [address] Protein [Mass/Vol] 7.2 g/dL Normal 6.0-7.8 [facility] Comment on above: Performed By: #### 1 4345192, 9582077, 0792465, 0316481, 2329958 ####[place] [address] [place] [address] Anion gap [Moles/Vol] 10 mmol/L Normal 6-16 [facility] Comment on above: Performed By: #### 1 3587287, 0293552, 5339781, 4796457, 4313494 ####[place] [address] [place] [address] Calcium [Mass/Vol] 9.3 mg/dL Normal 8.9-11.1 [facility] Comment on above: Performed By: #### 1 0795248, 9552887, 3893721, 4817659, 3693444 ####[address] [place] [address] Chloride [Moles/Vol] 104 mmol/L Normal 101-111 [facility] Comment on above: Performed By: #### 1 5885254, 9843571, 7174317, 8939919, 6585059 ####[facility] [address] [address] CO2 [Moles/Vol] 27 mmol/L Normal 21-[address] [facility] Comment on above: Performed By: #### 1 8733966, 5958458, 8493396, 1757315, 1704675 ####[facility] [address] [place] [address] Creatinine [Mass/Vol] 0.7 mg/dL Normal 0.5-1.3 [facility] Comment on above: Performed By: #### 1 2893031, 4531654, 7452351, 9968234, 8449201 ####[facility] [address] [place] [address] Glucose [Mass/Vol] 91 mg/dL Normal 55-199 [facility] Comment on above: Performed By: #### 1 7280830, 8345764, 9805379, 7949863, 8858914 ####[facility] [address] [place] [address] Potassium [Moles/Vol] 4.1 mmol/L Normal 3.5-5.3 [facility] Comment on above: Performed By: #### 1 7883011, 7256549, 9143786, 3265393, 8265798 ####[facility] [address] [facility] [place] [address] Sodium [Moles/Vol] 137 mmol/L Normal 135-145 [facility] Comment on above: Performed By: #### 1 0300697, 7169800, 3994310, 6574496, 0502460 ####[facility] [address] [facility] [place] [address] Urea nitrogen [Mass/Vol] 11 mg/dL Normal 5-21 [facility] Comment on above: Performed By: #### 1 2167174, 5241781, 0460729, 6349580, 2885216 ####[facility] [address] [place] [address] Urea nitrogen/Creatinine [Mass ratio] 16 No Units Normal 10-20 [facility] Comment on above: Performed By: #### 1 0753278, 4750306, 5387153, 6780369, 3438104 ####[facility] [address] [place] [address] Family Medicine Office/Clini c Noteon 09-17-2023 Family Medicine Office/Clinic Note HPI Staff Nicole is a 33 year old female presenting for yearly wellness Health Maintenance: Colonoscopy: n/a Dexa: n/a Mammo: 2022 normal, family hx mom with breast cancer. Would like order for [facility] Pap: May 2023 negative, Dr G[place] in [place] Last Labs: nothing in the last year [...] Diff Comprehensive Metabolic Panel Lab Specimen Collect [id number] Lipid Panel Thyroid Stimulating Hormone 2. Breast cancer screening by mammogram (Z12.31: Encounter for screening mammogram for malignant neoplasm of breast) order for mammogram given Ordered: CBC w/ Auto Diff Comprehensive Metabolic Panel Lab Specimen Collect [id number] Lipid Panel Thyroid Stimulating Hormone 3. Non-smoker (Z78.9: Other specified health status) continue not smoking Ordered: Lab Specimen Collect [id number] 4. Right elbow pain (M25.521: Pain in [...] BMI education complete Ordered: Lab Specimen Collect 57290 8. Fatigue (R53.83: Other fatigue) c/o fatigue Ordered: CBC w/ Auto Diff Comprehensive Metabolic Panel Lab Specimen Collect [id number] Lipid Panel Thyroid Stimulating Hormone Orders: amoxicillin, 875 mg = 1 tab(s), Oral, BID, X 7 day(s), # 14 tab(s), Refills(s) 0, Pharmacy: [facility]/pharmacy #[id number], 157.4, cm, 09/25/22 16:16:00 EDT, Height/Length Dosing, 93.3, kg, 09/25/22 16:16:00 EDT, Weight Dosing carisoprodol, 250 mg = 1 tab(s), Oral, Bedtime, PRN Insomnia, # 30 tab(s), Refills(s) 0, Pharmacy: [facility], 157.4, cm, 09/25/22 16:16:00 EDT, Height/Length Dosing, 93.3, kg, 09/25/22 16:16:00 EDT, Weight Dosing celecoxib, 200 mg = 1 cap(s), Oral, Daily, # 90 cap(s), Refills(s) 0, Pharmacy: [facility], 157.4, cm, 09/25/22 16:16:00 EDT, Height/Length Dosing, 93.3, kg, 09/25/22 16:16:00 EDT, Weight Dosing lorazepam, 0.5 mg = 1 tab(s), Oral, q12hr, PRN anxiety, # 20 tab(s), Refills(s) 0, Pharmacy: [facility], 157.4, cm, 09/25/22 16:16:00 EDT, Height/Length Dosing, 93.3, kg, 09/25/22 16:16:00 EDT, Weight Dosing lorazepam, 0.5 mg = 1 tab(s), Oral, q12hr, PRN anxiety, # 20 tab(s), Refills(s) 0, Pharmacy: [facility]/pharmacy #[id number], 157.4, cm, 09/17/23 [...] Family H (more content not included)... Normal [facility] Comment on above: Result Comment: Elec tronically Signed By: Coty YEUNG, Yocasta Ma\.br\Date and Time Signed: 09/17/23 10:51 EDT HEMATOLOGYOrdered [...] 11.0 E9/L Remisol Heme Lipid Panelon 09-17-2023 VLDL UTC Abnormal -40 [facility] Comment on above: Result Comment: 'GERRY BLE TO REPORT. TRIG > 400 mg/dl' Result verified by Discern Rule. Performed result [facility] (Unable to Calculate) was sent as an Alpha code due the inability to calculate a valid numeric value. Performed By: #### 1 [id number], [id number], [id number], [id number], [id number] ####[facility] [address] [place] [address] Cholesterol [Mass/Vol] 171 mg/dL Normal 120-200 [facility] Comment on above: Performed By: #### 1 [id number], [id number], 3566734, [id number], [id number] ####[facility] [address] [place] [address] Cholesterol in HDL [Mass/Vol] 35 mg/dL Invalid Interpretation Code [facility] Comment on above: Result Comment: '>= 60 LOW RISK' '<= 40 HIGH RISK' Performed By: #### 1 [id number], [id number], [id number], [id number], [id number] ####[facility] [address] [place] [address] Cholesterol in LDL [Mass/Vol] 64 mg/dL Normal <=129 [facility] Comment on above: Performed By: #### 1 [id number], [id number], 1095067, 2733305, [id number] ####[facility] [address] [place] [address] Triglyceride [Mass/Vol] 602 mg/dL High <=149 [facility] Comment on above: Performed By: #### 1 [id number], [id number], 8308135, 5260831, 6137405 ####[facility] [address] [place] [address] Medication Consenton 024 Medication Consent [id number] #1.00TIFF Normal [facility] Physician Orderon 09-17-2023 Physician Order [id number] #1.00TIFF Normal [facility] TSHon 09-17-2023 TSH Qn 2.10 m[IU]/L Normal 0.34-5.60 [facility] Comment on above: Performed By: #### 1 [id number], [id number], 5953494, 2236971, 8441752 ####[facility] [address] [place] [address] eGFRon 09-17-2023 eGFR 116 mL/min/1.73 m2 Normal >=59 [facility] Comment on above: Order Comment: Order added by Discern Expert. Performed By: #### 1 [id number], [id number], 1488860, [id number], [id number] ####[facility] [address] [place] [address] Provider Letteron 03-25-2023 Provider Letter March 25, 2023 [employer] [address] [place] [id number] : 1990 To Whom It May Concern, Please excuse above patient from work today 03-25-23 due to daughters illness. Date of Illness: From: 03-25-23 To: 03-25-23 May Return to Work On:03-26-23 Restrictions: _ Comments: _ Sincerely, [address] [address] Normal [facility] Provider Letter March 25, 2023 [employer] [address] [place] [id number] : 1990 To Whom It May Concern, Please excuse above patient from work today 03-25-23 due to daughters illness. Date of Illness: From: _03-25-23 To: _ 03-25-23 May Return to Work On:03-26-23 Restrictions: _ Comments: _ Sincerely, Normal [facility] Consultation Noteon 12-12-19 Consultation Note [id number] #1.00CD:127 Normal [facility] COVID Quick Testingon 2022 Result Negative [employer] Other CBC AUTO DIFFon 01-01-2019 Basophils (Bld) [#/Vol] 0.0 103/ul Normal 0.0-0.1 [facility] Comment on above: Performed By: #### C BC #### [facility] [address] [place], [place] [id number] Ephraim Brandi Basophils/100 WBC (Bld) 0.6 % Normal 0.2-2.0 [facility] Comment on above: Performed By: #### C BC #### [facility] [address] [place], [place] [address] Ephraim Brandi Eosinophils (Bld) [#/Vol] 0.4 103/ul Normal 0.0-0.7 [facility] Comment on above: Performed By: #### C BC #### [facility] [address] [place] [address] Ephraim Brandi Eosinophils/100 WBC (Bld) 5.7 % Normal 0.9-7.0 [facility] Comment on above: Performed By: #### C BC #### [facility] [address] [place], [place] [address] Ephraim Brandi Erythrocyte distribution width (RBC) [Ratio] 12.8 % Normal 11.0-15.0 [facility] Comment on above: Performed By: #### C BC #### [facility] [address] [place] [address] Ephraim Brandi Hematocrit (Bld) [Volume fraction] 42.9 % Normal 36.0-48.0 [facility] Comment on above: Performed By: #### C BC #### [facility] [address] [place], [place] [address] Ephraim Brandi Hemoglobin (Bld) [Mass/Vol] 14.2 g/dL Normal 12.0-16.0 [facility] Comment on above: Performed By: #### C BC #### [facility] [address] [place] [id number] Ephraim Brandi IG # 0.02 10e3/ul Normal 0.00-0.03 [facility] Comment on above: Performed By: #### C BC #### [facility] [address] [id number] Ephraim Brandi IG % 0.3 % Normal 0.0-0.5 [facility] Comment on above: Performed By: #### C BC #### [facility] [address] [place] [address] Ephraim Brandi Lymphocytes (Bld) [#/Vol] 2.5 103/ul Normal 1.2-3.8 [facility] Comment on above: Performed By: #### C BC #### [facility] [address] [place], [place] [id number] Ephraim Brandi Lymphocytes/100 WBC (Bld) 34.7 % Normal 20.5-60.0 [facility] Comment on above: Performed By: #### C BC #### [facility] [address] [place], [place] [id number] Ephraim Brandi MANUAL DIFF REQ NO Normal [facility] Comment on above: Performed By: #### C BC #### [facility] [address] [place], [place] [phone] Ephraim Brandi MCH (RBC) [Entitic mass] 31.8 pg Normal 26.7-34.0 [facility] Comment on above: Performed By: #### C BC #### [facility] [address] [place], [place] [id number] Ephraim Brandi MCHC (RBC) [Mass/Vol] 33.1 g/dL Normal 29.9-35.2 [facility] Comment on above: Performed By: #### C BC #### [facility] [address] [place], [place] [address] Ephraim Brandi MCV (RBC) [Entitic vol] 96.0 fL Normal 81.0-99.0 [facility] Comment on above: Performed By: #### C BC #### [facility] [address] [place] [address] Ephraim Brandi Monocytes (Bld) [#/Vol] 0.4 103/ul Normal 0.3-0.8 [facility] Comment on above: Performed By: #### C BC #### [facility] [address] [place] [address] Ephraim Brandi Monocytes/100 WBC (Bld) 5.4 % Normal 1.7-12.0 [facility] Comment on above: Performed By: #### C BC #### [facility] [address] [place], [place] [phone] Ephraim Brandi Neutrophils (Bld) [#/Vol] 3.8 103/ul Normal 1.4-6.5 [facility] Comment on above: Performed By: #### C BC #### [facility] [address] [place] [address] Ephraim Brandi Neutrophils/100 WBC (Bld) 53.3 % Normal 43.0-75.0 [facility] Comment on above: Performed By: #### C BC #### [facility] [address] [place] [address] Ephraim Brandi Platelet mean volume (Bld) [Entitic vol] 10.5 fL Normal 9.5-13.5 [facility] Comment on above: Performed By: #### C BC #### [facility] [address] [place] [address] Ephraim Brandi Platelets (Bld) [#/Vol] 156 103/ul Normal 150-450 [facility] Comment on above: Performed By: #### C BC #### [facility] [address] [place], [place] [phone] Ephraim Brandi RBC (Bld) [#/Vol] 4.47 106/ul Normal 4.20-5.40 [facility] Comment on above: Performed By: #### C BC #### [facility] [address] [place], [place] [address] Ephraim Brandi WBC (Bld) [#/Vol] 7.2 103/ul Normal 4.0-11.0 [facility] Comment on above: Performed By: #### C BC #### [facility] [address] [place], [place] [address] Ephraim Brandi PROF CHEM 8 (BAS METB)on Anion gap [Moles/Vol] 8.2 mmol/L Normal [facility] Comment on above: Performed By: #### B MP #### [facility] [address] [phone] Ephraim Brandi Calcium [Mass/Vol] 9.6 mg/dL Normal 8.4-10.2 [facility] Comment on above: Performed By: #### B MP #### [facility] [address] [place] [address] Ephraim Brandi Chloride [Moles/Vol] 105 mmol/L Normal 98-107 [facility] Comment on above: Performed By: #### B MP #### [facility] [address] [phone] Ephraim Brandi CO2 [Moles/Vol] 29.8 mmol/L Normal 22.0-30.0 [facility] Comment on above: Performed By: #### B MP #### [facility] [address] [address] Ephraim Brandi Creatinine [Mass/Vol] 0.71 mg/dL Normal 0.52-1.04 [facility] Comment on above: Performed By: #### B MP #### [facility] [address] [phone] Ephraim Brandi EGFR-AF CITIZEN OF [place] >60 Normal >=60 [facility] Comment on above: Performed By: #### B MP #### [facility] [address] [address] Ephraim Brandi EGFR-NON AF CITIZEN OF THE [place] >60 Normal >=60 [facility] Comment on above: Performed By: #### B MP #### [facility] [address] [phone] Ephraim Brandi Glucose [Mass/Vol] 90 mg/dL Normal 74-106 [facility] Comment on above: Performed By: #### B MP #### [facility] [address] [place], [place] [address] Ephraim Brandi Potassium [Moles/Vol] 4.0 mmol/L Normal 3.4-5.0 [facility] Comment on above: Performed By: #### B MP #### [facility] [address] [phone] Ephraim Brandi Sodium [Moles/Vol] 139 mmol/L Normal 137-145 [facility] Comment on above: Performed By: #### B MP #### [facility] [address] [phone] Ephraim Brandi Urea nitrogen [Mass/Vol] 9.0 mg/dL Normal 7.0-17.0 [facility] Comment on above: Performed By: #### B MP #### [facility] [address] [phone] Ephraim Brandi Urea nitrogen/Creatinine [Mass ratio] 12.7 mg/mg Normal [facility] Comment on above: Performed By: #### B MP #### [facility] [address] [place], [place] [address] Ephraim Brandi Vital Signs Date Time Vital Sign Value Performing Clinician Facility 10-16-2023 09:12-0400 Body temperature 98.06 [degF] Brody Weston [facility] 10-16-2023 09:12-0400 Diastolic blood pressure 75 mm[Hg] [facility]-16-2023 09:12-0400 Heart rate 90 /min Brodysteff Weston [facility] 10-16-2023 09:12-0400 Mean blood pressure 85 mm[Hg] Brody Weston [facility] 10-16-2023 09:12-0400 Respiratory rate 16 /min Brody Weston [facility] 10-16-2023 09:12-0400 SaO2% (BldA) [Mass fraction] 98 % Brody Weston [facility] 10-16-2023 09:12-0400 Systolic blood pressure 106 mm[Hg] Brody Weston [facility] 07-17-2023 13:04-0500 Body height 156.2 cm [facility] 07-17-2023 13:04-0500 Body mass index (BMI) [Ratio] 36.62 kg/m2 [facility] 07-17-2023 13:04-0500 Body weight 89.36 kg [facility] 07-17-2023 13:04-0500 Diastolic blood pressure 76 mm[Hg] [facility] 07-17-2023 13:04-0500 Systolic blood pressure 110 mm[Hg] [facility] 12-10-2022 13:55-0400 Body height 157.48 cm Letha Herring Other [employer] Other 12-10-2022 13:55-0400 Body mass index (BMI) [Ratio] 37.86 kg/m2 Letha Herring Other [employer] Other 12-10-2022 13:55-0400 Body temperature 97.7 [degF] Letha Herring Other [employer] Other 12-10-2022 13:55-0400 Body weight 93.9 kg Letha Herring Other [employer] Other 12-10-2022 13:55-0400 Diastolic blood pressure 85 mm[Hg] Letha Herring Other [employer] Other 12-10-2022 13:55-0400 Respiratory rate 18 /min Letha Herring Other [employer] Other 12-10-2022 13:55-0400 SaO2% (BldA) [Mass fraction] 100 % Letha Nima Other [employer] Other 12-10-2022 13:55-0400 Systolic blood pressure 122 mm[Hg] Letha Herring Other [employer] Other 08-29-2022 10:00-0400 Body height 157.48 cm Crista Perezmond Other [employer] Other 08-29-2022 10:00-0400 Body mass index (BMI) [Ratio] 36.03 kg/m2 Crista Mary Other [employer] Other 08-29-2022 10:00-0400 Body temperature 97.3 [degF] Crista Perezmond Other [employer] Other 08-29-2022 10:00-0400 Body weight 89.36 kg Crista Hernandez Other [employer] Other 08-29-2022 10:00-0400 Respiratory rate 18 /min Crista Hernandez Other [employer] Other 08-29-2022 10:00-0400 SaO2% (BldA) [Mass fraction] 98 % Crista Perezmond Other [employer] Other Encounters Encounter Date Encounter Type Care Provider Facility Start: 10-23-2023 ambulatory Brody Garcia ity:[facility] Start: 10-16-2023 End: 10-17-2023 ambulatory Brody Weston Facility:[facility] Start: 10-16-2023 End: 10-16-2023 Patient encounter procedure Brody Weston [facility] Start: 10-09-2023 End: 10-10-2023 ambulatory Yocasta L Coty Facility:[facility] Start: 10-09-2023 End: 10-09-2023 Lab Drop off Yocasta L Coty [facility] Start: 09-17-2023 End: 09-18-2023 ambulatory Yocasta L Coty Facility:[facility] Start: 09-17-2023 End: 09-17-2023 Lab Drop off Yocasta L Coty [facility] Start: 07-30-2023 End: 07-31-2023 ambulatory Yocasta L Coty Facility:[facility]ie byrd Start: 07-17-2023 End: 07-17-2023 ambulatory DANA Joann [facility] Start: 07-17-2023 Encounter for gynecological examination (general) (routine) without abnormal findings [facility] Start: 07-17-2023 End: 07-17-2023 Patient encounter procedure [facility] [employer] Control Technician [facility] Start: 07-17-2023 End: 07-17-2023 Periodic preventive med est patient 18-39 yrs [facility] Ob [employer] Control Technician [facility] Comment on above: Well woman exam with routine gynecological exam (Primary Dx); Family hx-breast malignancy; At high risk for breast cancer; Standardized adult depression screening tool completed Start: 12-10-2022 End: 12-10-2022 ambulatory eLtha Herring Other [employer] Other Start: 12-10-2022 Office outpatient vi sit 15 minutes Letha Herring [facility] Start: 12-09-2022 ambulatory Yocasta Coty Facility:[facility] Start: 08-29-2022 End: 08-29-2022 ambulatory Crista Hernandez Other [employer] Other Start: 08-29-2022 Office outpatient vi sit 15 minutes Crista Hernandez [facility] Start: 01-01-2019 End: 01-02-2019 Patient encounter procedure DANA RAMIREZ Facility:[facility] Procedures Date Procedure Procedure Detail Performing Clinician Start: 07-17-2023 Adult depression scr eening assessment [facility] [employer] Control Technician Start: 05-23-2021 Microscopic observat ion [Identifier] in Cervix by Cyto stain [facility] [employer] Control Technician Gallbladder structur e (body structure) Yocasta Coty Comment on above: removed Scoliosis deformity of spine (disorder) Yocasta Ansari Comment on above: surgery Plan of Treatment Date Care Activity Detail Author Start: 07-17-2024 Adult BMI Follow Up Plan Adult BMI Follow Up Plan [facility] Start: 07-17-2024 [facility] Start: 07-17-2024 Depression Screening Depression Scre ening [facility] Start: 07-17-2024 Tobacco Screening Tobacco Screening [facility] Start: 05-23-2024 Screening for malign ant neoplasm of cervix Pap Smear [facility] Start: 07-17-2023 End: 09-13-2024 DBT Breast - bilateral screening Mammography screening bilateral with CAD Imaging Routine Family hx-breast malignancy At high risk for breast cancer Expected: 07/17/2023, Expires: 09/13/2024 [employer] Work Phone: Comment on above: Expected: 07/17/2023 , Expires: 09/13/2024 Start: 01-24-2023 Influenza vaccination Influenza Vacc ine [facility] Start: 02-25-2008 DTaP,Tdap and Td Vaccines (1 - Tdap) DTaP,Tdap and Td Vaccines (1 - Tdap) [facility] Payers Date Payer Category Payer Unknown [employer] OUT OF STATE PPO/TRUST [id number] 2017-Present [phone] [address] [place] [address] [id number] 1989 Unknown [id number] 1989 Unknown [id number] 1989 Unknown [id number] 1989 Unknown [id number] 1989 Unknown [id number] 1989 Unknown [id number] 1989 Unknown [id number] 1989 Unknown [id number] 1959 Unknown [id number] Social History Date Type Detail Facility Unknown if ever smoked [employer] Other Start: 11-02-2018 End: 07-17-2023 Sex Assigned At [employer] Other Start: 06-18-2022 End: 10-16-2023 Tobacco smoking status WVIS Ex-smoker [facility] History of tobacco use Current smoker [facility] Start: 06-18-2022 Tobacco use and exposure Smokeless tobacco non-user [facility] Start: 07-17-2023 Alcohol intake Current drinke r of alcohol (finding) [facility] Start: 11-02-2018 End: 07-17-2023 History of Social function [facility] Adolescent depressio n screening assessment 5 [facility] Start: 05-23-2021 Alcohol Comment rarely [facility] Start: 1990 Sex Assigned At Not on file [facility] Start: 09-25-2022 End: 10-09-2023 Tobacco smoking status Never smoked tobacco (finding) [facility] [place] Clinical Notes 08-29-2022 to 10-16-2023 Sandra Winchester, MACHINE FILLER SERVICER-POT FILLER - 07/17/2023 1:00 PM EST Note Date & Type Note Facility 10-16-2023 Hospital Discharg e instructions Patient Education 10/16/2023 09:22:28 [...] including vitamins, herbs, eye drops, creams, and nxzk-brg-nzdfeub medicines. Any problems you or family members [...] provider tells you to take them. Taking xeru-usj-ffavrzf medicines, vitamins, herbs, and supplements. General instructions [...] including vitamins, herbs, eye drops, creams, and giii-fva-gmqgmle medicines. Plan to have someone take you [...] provider. Document Revised: 09/28/2019 Document Reviewed: 09/28/2019 [employer] Patient Education 2022 [employer]. Follow Up Care 10/15/2023 13:32:38 With:Brody Weston DO, ONC Address: [facility] [place] [address]- [phone] Fax Business (1) When: Unknown Comments:weekly cbc,check zinc and copper with next labs.f/u in 1 month. [facility] 10-09-2023 Evaluation + Plan note Diagnostic Tests [employer]. Review 10/09/23 [facility] 07-17-2023 History of Presen t illness Narrative Annual Well Woman Visit 07/17/2023 Cecilio Carter is a 33 y.o. 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 Follow up as needed. Next pap due 2025 per ASCCP guidelines. Discussed taking a multivitamin. Discussed Calcium and Vitamin D for prevention of osteoporosis. HPV vaccine is recommended between 9-45 yo. Can be received at [employer] or the [employer] department. Discussed need for yearly mammogram after 40 yo. Discussed colon cancer screening recommendations to begin at 45 yo, patient to discuss with PCP. All questions answered. NAREN Villanueva APRN-CNP Lisa M Franco, APRN-CNP 07/17/23 [id number] documented in this encounter [facility] 12-10-2022 Evaluation note Encounter Date Diagnosis Assessment [...] understanding and is agreeable to treatment plan. [employer] Other 04-06-2023 Evaluation note* Encounter Date Diagnosis [...] no improvement in 2 to 3 days. [employer] Other Evaluation + Plan note Future Appointments Appointment Date:10/09/2023 10:20:00 AM Scheduled Provider:Yocasta Vidal Location:[facility] Future [facility]ments Appointment [...] 10/22/23 * CBC w/ Auto Diff [facility] Diagnosis Well woman exam with routine gynecological exam- Primary Routine gynecological examination Family hx-breast malignancy At high risk for breast cancer Standardized adult depression screening tool completed documented in this [facility] N[facility] - Reported* Type Description Date Medical History anxiety Medical History depression Surgical History cholecystectomy 2013 Hospitalization History see above [employer] Other History general Narrative - Reported* Type Description Date Medical History anxiety Medical History depression Medical History high blood pressure Medical History Esophageal reflux Surgical History cholecystectomy 2013 Hospitalization History see above [employer] Other Hospital course Narrative No data available for this section [facility] No data available for this section [facility] Attachments The following attachments cannot be sent through Care Everywhere. * Health Risks of a High BMI (Italian) * Lowering Your Risk of Breast Cancer (Italian) [facility] No data available for this section [facility] Summary Purpose Family History No Family History [...] DATE CREATED AUTHOR AUTHOR'S ORGANIZ ATION 10/12/2023 [facility] DATE CREATED AUTHOR AUTHOR'S ORGANIZ ATION [facility]23 [facility] DATE CREATED AUTHOR AUTHOR'S ORGANIZ ATION 10/24/2023 [facility] REASON FOR VISIT (unrecogniz ed section and content) Reason Comments Gynecologic Exam Pt is here for el ma exam. Care Teams (unrecognized sec tion and content) Hat Mender Relationship Specialty Start Date End Date Dana Ramirez MD [address] [place] [address] PCP - General Family Medicine 05/23/21 FOR [...] BE BASED ON THE PRIMARY CLINICAL RECORDS. [employer] [facility] provides no warranty or guarantee of the accuracy or completeness of information in this document.
--- NOTE | 2023-10-29 09:00 | US_ITS ---
The [address] [address] Patient Name: VITA SMITH MRN: [id number] date: 1990 Sex: F Assigned Patient Location: US Current Patient Location: US Accession/Order Number: [id number] Exam Date: 10/29/2023 09:02 Report Date: 10/29/2023 09:47 At the request of: STU MONTAÑO Procedure: US abdomen limited EXAMINATION: US abdomen limited HISTORY: Thrombocytopenia D69.6 COMPARISON: No relevant comparison available. TECHNIQUE: Percutaneous ultrasound of spleen. FINDINGS: SPLEEN: Normal in size, 10.0 x 10.2 x 4.9 cm. Homogeneous echotexture except for an 8 x 7 x 5 mm rounded hyperechoic area near the inferior margin; nonspecific. US/US abdomen limited IMPRESSION: 1. Nonspecific 8 mm hyperechoic structure within inferior aspect of spleen. Statistically this favors a hemangioma. Consider CT abdomen without and with IV contrast for further evaluation if clinically indicated. Electronically authenticated by: JOZEF GODDARD Date: 10/29/2023 09:47
== END 2023-10-29 08:54 | disposition home or self-care (01) ==
LOC: US 08:53
PROVIDERS: PCP Nurse Practitioner; Visit Provider Internal Medicine
DX: D69.6 Thrombocytopenia, unspecified (principal)
CPT/HCPCS: 36415; 76705; 85025

== ENCOUNTER 2023-10-29 09:19 | Outpatient (RCR) | payer BC, SELFPAY ==
[2023-10-29 10:20] LABS: Basophils Absolute Auto 0.1 10^3/uL (0.0-0.1); Basophils Percent Auto 0.5 % (0.2-2.0); Eosinophils Absolute Auto 0.3 10^3/uL (0.0-0.7); Eosinophils Percent Auto 3.3 % (0.9-7.0); Hematocrit 37.3 % (36.0-48.0); Hemoglobin 12.3 g/dL (12.0-16.0); Immature Granulocytes Abs Auto 0.02 10^3/uL (0.00-0.03); Immature Granulocytes Pct Auto 0.2 % (0.0-0.5); Lymphocytes Absolute Auto 2.6 10^3/uL (1.2-3.8); Lymphocytes Percent Auto 26.7 % (20.5-60.0); Mean Corpuscular Hemoglobin 30.7 pg (26.7-34.0); Mean Platelet Volume 11.4 fL (9.5-13.5); Monocytes Absolute Auto 0.4 10^3/uL (0.3-0.8); Monocytes Percent Auto 3.9 % (1.7-12.0); Neutrophils Absolute Auto 6.4 10^3/uL (1.4-6.5); Neutrophils Percent Auto 65.4 % (43.0-75.0); Platelet Count 56 10^3/uL (150-450); Red Blood Count 4.01 10^6/uL (4.20-5.40); Red Cell Distribution Width 13.3 % (11.0-15.0); White Blood Count 9.7 10^3/uL (4.0-11.0)
[2023-11-05 11:31] LABS: Basophils Absolute Auto 0.1 10^3/uL (0.0-0.1); Basophils Percent Auto 0.6 % (0.2-2.0); Eosinophils Absolute Auto 0.3 10^3/uL (0.0-0.7); Eosinophils Percent Auto 4.3 % (0.9-7.0); Hematocrit 37.3 % (36.0-48.0); Hemoglobin 12.5 g/dL (12.0-16.0); Immature Granulocytes Abs Auto 0.02 10^3/uL (0.00-0.03); Immature Granulocytes Pct Auto 0.3 % (0.0-0.5); Lymphocytes Absolute Auto 3.3 10^3/uL (1.2-3.8); Lymphocytes Percent Auto 41.4 % (20.5-60.0); Mean Corpuscular HGB Conc 33.5 g/dL (29.9-35.2); Mean Corpuscular Hemoglobin 30.5 pg (26.7-34.0); Mean Platelet Volume 11.4 fL (9.5-13.5); Monocytes Absolute Auto 0.3 10^3/uL (0.3-0.8); Monocytes Percent Auto 3.6 % (1.7-12.0); Neutrophils Percent Auto 49.8 % (43.0-75.0); Platelet Count 58 10^3/uL (150-450); Red Cell Distribution Width 12.9 % (11.0-15.0)
[2023-11-12 11:02] LABS: Basophils Absolute Auto 0.1 10^3/uL (0.0-0.1); Basophils Percent Auto 0.5 % (0.2-2.0); Eosinophils Absolute Auto 0.3 10^3/uL (0.0-0.7); Eosinophils Percent Auto 3.4 % (0.9-7.0); Hematocrit 38.7 % (36.0-48.0); Hemoglobin 12.7 g/dL (12.0-16.0); Immature Granulocytes Abs Auto 0.03 10^3/uL (0.00-0.03); Immature Granulocytes Pct Auto 0.3 % (0.0-0.5); Lymphocytes Absolute Auto 3.2 10^3/uL (1.2-3.8); Lymphocytes Percent Auto 35.3 % (20.5-60.0); Mean Corpuscular HGB Conc 32.8 g/dL (29.9-35.2); Mean Corpuscular Hemoglobin 30.2 pg (26.7-34.0); Mean Corpuscular Volume 91.9 fL (81.0-99.0); Mean Platelet Volume 11.7 fL (9.5-13.5); Monocytes Absolute Auto 0.3 10^3/uL (0.3-0.8); Monocytes Percent Auto 3.2 % (1.7-12.0); Neutrophils Absolute Auto 5.3 10^3/uL (1.4-6.5); Neutrophils Percent Auto 57.3 % (43.0-75.0); Platelet Count 36 10^3/uL (150-450); Red Blood Count 4.21 10^6/uL (4.20-5.40); White Blood Count 9.2 10^3/uL (4.0-11.0)
[2023-11-19 11:12] LABS: Basophils Absolute Auto 0.1 10^3/uL (0.0-0.1); Basophils Percent Auto 0.6 % (0.2-2.0); Eosinophils Absolute Auto 0.4 10^3/uL (0.0-0.7); Eosinophils Percent Auto 4.3 % (0.9-7.0); Hematocrit 40.6 % (36.0-48.0); Hemoglobin 13.4 g/dL (12.0-16.0); Immature Granulocytes Abs Auto 0.01 10^3/uL (0.00-0.03); Immature Granulocytes Pct Auto 0.1 % (0.0-0.5); Lymphocytes Absolute Auto 3.1 10^3/uL (1.2-3.8); Lymphocytes Percent Auto 35.7 % (20.5-60.0); Mean Corpuscular Hemoglobin 30.5 pg (26.7-34.0); Mean Corpuscular Volume 92.5 fL (81.0-99.0); Mean Platelet Volume 11.2 fL (9.5-13.5); Monocytes Absolute Auto 0.4 10^3/uL (0.3-0.8); Monocytes Percent Auto 4.8 % (1.7-12.0); Neutrophils Absolute Auto 4.7 10^3/uL (1.4-6.5); Neutrophils Percent Auto 54.5 % (43.0-75.0); Platelet Count 71 10^3/uL (150-450); Red Blood Count 4.39 10^6/uL (4.20-5.40); Red Cell Distribution Width 13.4 % (11.0-15.0); White Blood Count 8.6 10^3/uL (4.0-11.0)
== END 2023-11-23 12:22 | disposition home or self-care (01) ==
LOC: LAB 09:19
PROVIDERS: PCP Nurse Practitioner; Visit Provider Internal Medicine
DX: D69.6 Thrombocytopenia, unspecified (principal)
CPT/HCPCS: 36415; 85025

== ENCOUNTER 2023-12-23 08:11 | Outpatient (OUT) | payer BC, SELFPAY ==
--- OUTSIDE RECORDS SUMMARY | 2023-12-23 08:19 | XMS_ITS | CCD ---
Author Organization [facility] Care Team Providers Care Emergency Spill Response Technician Name Role Phone DANA RAMIREZ Admitting Unavailable DANA RAMIREZ Attending Unavailable DANA RAMIREZ Referring Unavailable DANA RAMIREZ Consulting Unavailable Crista Hernandez Unavailable Letha Herring Unavailable Dana Ramirez MD Primary Care Provider [phone] DANA RAMIREZ Referring Unavailable DANA RAMIREZ Primary Care Unavailable Coty, Yocasta L Primary Care Physician [phone] Coty, Yocasta L Admitting Unavailable Coty, Yocasta L Attending Unavailable Coty, MAYONNAISE MIXER Yocasta L Attending Unavailable Coty, MAYONNAISE MIXER Yocasta L Attending Unavailable Coty, MAYONNAISE MIXER Yocasta L Attending Unavailable Coty, MAYONNAISE MIXER Yocasta L Admitting Unavailable Coty, MAYONNAISE MIXER Yocasta L Attending Unavailable Coty, MAYONNAISE MIXER Yocasta L Admitting Unavailable Coty, MAYONNAISE MIXER Yocasta L Attending Unavailable Adamowicz, Brody Attending Unavailable Adamowicz, Brody Attending Unavailable Coty, Yocasta L Referring Unavailable Allergies Allergy Classification Reported Allergen(s) Allergy Type Date of Onset Reaction(s) Facility (1 source) desloratadine / Pseudoephedrine Drug Allergy 09-24-19 15 [facility] Repository (4 sources) predniSONE; Translations: [PREDNISONE] Drug Allergy 09-22-19 15 [facility] Repository (3 sources) Sertraline; Translations: [Zoloft] Drug Allergy 09-22-19 15 [facility] Repository (2 sources) Ciprofloxacin Drug Allergy Unknown [employer] Other (8 sources) Sertraline; Translations: [SERTRALINE] Drug Allergy 05-23-20 21 Palpitations, Unknown (qualifier value) [employer] Other (5 sources) predniSONE; Translations: [prednisone] Drug Allergy 05-23-20 Palpitations, Unknown (qualifier value) [facility] Medications Current Medications Medication Drug Class(es) Dates Sig (Normalized) Sig (Original) atenolol 25 mg oral tablet (7 sources) beta-Adrenergic Mark Start: 09-09-2023 take 1 tablet by mouth once daily atenolol 25 mg Tab 25 mg = 1 tab(s), Oral, Daily, # 90 tab(s), Refills(s) 1, Pharmacy: [facility]/pharmacy #[id number], 157.4, cm, 09/25/22 16:16:00 EDT, Height/Length Dosing, 93.3, kg, 09/25/22 16:16:00 EDT, Weight Dosing Start Date: 09/09/23 Status: Ordered take 1 tablet by mouth in the nh rning atenoloL (TENORMIN) 25 mg tablet Take 1 tablet (25 mg total) by mouth in the morning. Takes it in quarters . 0 Active Atenolol Active citalopram 40 mg oral tablet (7 sources) Serotonin Reuptake Inhibitor Start: 09-09-2023 take 1 tablet by mouth once daily citalopram 40 mg Tab 40 mg = 1 tab(s), Oral, Daily, # 90 tab(s), Refills(s) 1, Pharmacy: [facility]/pharmacy #[id number], 157.4, cm, 09/25/22 16:16:00 EDT, Height/Length Dosing, 93.3, kg, 09/25/22 16:16:00 EDT, Weight Dosing Start Date: 09/09/23 Status: Ordered take 1 tablet by mouth in the nh rning citalopram (CeleXA) 40 mg tablet Take 1 tablet (40 mg total) by mouth in the morning. 0 Active CeleXA Active Fish Oils (3 sources) Start: 10-09-2023 Fish Oil Oral, BID, Refill(s) 0 Start Date: 10/09/23 Status: Ordered gabapentin 300 mg oral capsule (3 sources) Anti-epileptic Agent Start: 10-09-2023 take 1 capsule by mouth twice daily gabapentin 300 mg Cap 300 mg = 1 cap(s), Oral, BID, # 60 cap(s), Refills(s) 0, Pharmacy: [facility]/pharmacy #[id number], 157.4, cm, 10/09/23 10:28:00 EDT, Height/Length Dosing, 87.6, kg, 10/09/23 10:28:00 EDT, Weight Dosing Start Date: 10/09/23 Status: Ordered LORazepam 0.5 mg oral tablet (4 sources) Benzodiazepine Start: 09-17-2023 take 1 tablet by mouth every twelve hours as needed for anxiety Ativan 0.5 mg Tab 0.5 mg = 1 tab(s), Oral, q12hr, PRN anxiety, # 20 tab(s), Refills(s) 0, Pharmacy: [facility]/pharmacy #[id number], 157.4, cm, 09/17/23 10:18:00 EDT, Height/Length Dosing, 89.1, kg, 09/17/23 10:18:00 EDT, Weight Dosing Start Date: 09/17/23 Status: Ordered methylPREDNISolone 4 mg oral tablet (1 source) Corticosteroid Start: 12-10-2022 methylPREDNISolone 4 MG as directed Orally for daily dose take half with breakfast, half with dinner for 6 days Nov, Active omeprazole 40 mg delayed release oral capsule (7 sources) Proton Pump Inhibitor Start: 09-11-2023 take 1 capsule by mouth once daily omeprazole 40 mg Cap-DR 40 mg = 1 cap(s), Oral, Daily, # 90 tab(s), Refills(s) 1, Pharmacy: [facility]/pharmacy #[id number], 157.4, cm, 09/25/22 16:16:00 EDT, Height/Length Dosing, 93.3, kg, 09/25/22 16:16:00 EDT, Weight Dosing Start Date: 09/11/23 Status: Ordered take 2 capsules by mouth in the morning omeprazole (PriLOSEC) 20 mg capsule Take 2 capsules (40 mg total) by mouth in the morning. 0 Active Omeprazole Activ e Completed/Discontinued Medications Medication Drug Class(es) Dates Sig (Normalized) Sig (Original) [id number] 200 actuat albuterol 0.09 mg/actuat metered dose [...] Problem Date Documented Date Episodic/Chronic Adjustment disorders (4 sources) Adjustment disorder with depressed mood 09-23-2022 Chronic Anxiety disorders (4 sources) Anxiety disorder 09-23-2022 Chronic Cardiac dysrhythmias (8 sources) Supraventricular tachycardia; Translations: [Supraventricular tachycardia] Onset: 01-01-2019 09-23-2022 Chronic Chronic obstructive pulmonary disease and bronchiectasis (1 source) Bronchitis, not specified as acute or chronic Episodic Coagulation and hemorrhagic disorders (2 sources) Thrombocytopenic disorder 10-10-2023 Chronic Immunizations and screening for infectious disease (1 source) Contact with and (suspected) exposure to other viral communicable diseases Episodic Malaise and fatigue (4 sources) Fatigue 09-17-2023 Episodic Other endocrine disorders (1 source) Polycystic ovary syndrome; Translations: [Polycystic ovarian syndrome] Onset: 06-18-2022 06-18-2022 Chronic Other non-traumatic joint disorders (4 sources) Pain in elbow 09-17-2023 Episodic Other nutritional; endocrine; and metabolic disorders (1 source) Obese class II; Translations: [Obesity, unspecified] Onset: 06-18-2022 06-18-2022 Chronic Other screening for suspected conditions (not mental disorders or infectious disease) (3 sources) Platelet count below reference range 10-09-2023 Episodic Residual codes; unclassified (6 sources) Family history of breast cancer; Translations: [...] (1 source) Gynecologic Exam Onset: 07-17-2023 Unclassified (4 sources) Pain of left shoulder region 09-17-2023 Unclassified (8 sources) Patient encounter status 09-17-2023 Past or [...] Test Name Value Interpretation Reference Range Facility Laboratory Outside Office Co pyon 10-30-2023 Laboratory Outside Office Copy [id number]# 1.00TIFF Normal [facility] Laboratory Outside Office Copy [id number] #1.00TIFF Normal [facility] Outside Radiologyon 10-29-19 Outside Radiology [id number] 8#1.00TIFF Normal [facility] Physician Orderon 10-29-2023 Physician Order [id number] 9#1.00TIFF Normal [facility] RAD - Ultrasound Reporton RAD - Ultrasound Report [id number] #1.00TIFF Normal [facility] RAD - MISCon 10-21-2023 [facility] [id number] #1.00TIFF Viktoriya Mcintosh [facility] Oncology Progress Noteon Oncology Progress Note Chief Complaint New patient Thrombocytopenia; no concerns Diagnoses Thrombocytopenia (D69.6: Thrombocytopenia, unspecified) Thrombocytosis (D75.839: Thrombocytosis, unspecified) Oncological History/ROS/PE/Asses sment and Plan HPI 33-year-old female referred for thrombocytopenia by her primary care provider Yocasta Ansari [facility]. Medical history includes depression, anxiety, hypertension, reflux. Outpatient medications include atenolol, gabapentin, Celexa, Prilosec, albuterol as needed. 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 Review of CBC from September 17, [...] When Contact Information Brody Weston DO, ONC [facility] [address] [place] [address]- [phone] Fax Business (1) Additional Instructions: weekly cbc, [...] % 10/09/23 Lymph Auto 34.4 % 09/17/23 [place] Auto 4.6 % 10/09/23 [place] Auto 4.6 % 09/17/23 Eos Auto 4.6 % 10/09/23 Eos Auto 3.7 % 09/17/23 Basophil Auto 0.7 % 10/09/23 Basophil Auto 0.6 % 09/17/23 Neutro Absolute 3.1 E9/L 10/09/23 Neutro Absolute 4.7 E9/L 09/17/23 Lymph Absolute 2 E9/L 10/09/23 Lymph Absolute 2.9 E9/L 09/17/23 [place] Absolute 0.3 E9/L 10/09/23 [place] Absolute 0.4 E9/L 09/17/23 Eos Absolute 0.3 [...] Bili Total (more content not included)... Normal [facility] Outside Labson 10-17-2023 Outside Labs [id number] 4#1.00TIFF Normal [facility] Consent for Treatmenton 09-24 Consent for Treatment [id number] #1.00TIFF Normal [facility] ED Pat Eduon 10-16-2023 ED [facility] Oncology Bone Marrow Aspiration and Bone Marrow [...] including vitamins, herbs, eye drops, creams, and eawa-mzw-hauuuxx medicines. ? Any problems you or family [...] tells you to take them. ? Taking tdnl-huu-voczbsh medicines, vitamins, herbs, and supplements. General instructions [...] procedure, te (more content not included)... Normal [facility] HIPAA Forms Officeon 024 HIPAA Forms Office [id number]# 1.00TIFF [facility] Outside Labson 10-16-2023 Outside Labs [id number] 9#1.00TIFF [facility] Physician Orderon 10-16-2023 Physician Order [id number] 80#1.00TIFF [facility] Physician Orderon 10-15-2023 Physician Order [id number] 8#1.00TIFF [facility] Path. Reviewon 10-10-2023 Path Review Peripheral Blood Smear: Invalid Interpretation Code [facility] Comment on above: Order Comment: Order added by Kandi Expert Performed By: #### 1 [id number] ####[facility] [address] [place] [address] Path. Review Peripheral Blood Smear: - RBCs: Normochromic and normocytic - WBCs: Within normal limits - Platelet: Decreased Invalid Interpretation Code [facility] Comment on above: Other Comment: Order added by Kandi Expert Ambulatory Visit Summaryon 0 10-09-2023 Ambulatory Visit Summary CATRER, ERIKA :1990 Visit Date:10/09/2023 Ambulatory Visit Instructions Your [...] Mouth 2 times a day Pickup at [facility]/pharmacy #[id number] Unchanged atenolol (atenolol 25 mg Tab) 1 [...] Capsules By Mouth Every day Pharmacy Information [facility]/pharmacy #[id number]: [address], [place] [id number] [phone] Allergies Zoloft (Unknown) predniSONE (Unknown) Problems Ongoing [...] for choosing us for your care. Normal [facility] CBC w/ Auto Diffon 4 Basophils/100 WBC (Bld) 0.7 % Normal 0.0-2.0 [facility] Comment on above: Performed By: #### 2 [id number] #### [facility] [address] [place] [address] Basophils/Leukocytes Auto (Bld) [Pure # fraction] 0.0 E9/L Normal 0.0-0.2 [facility] Comment on above: Performed By: #### 2 092489 #### [facility] [address] [place] [address] Eosinophils (Bld) [#/Vol] 0.3 E9/L Normal 0.0-0.5 [facility] Comment on above: Performed By: #### 2 205105 #### [facility] [address] [place] [address] Eosinophils/100 WBC (Bld) 4.6 % Normal 0.0-8.0 [facility] Comment on above: Performed By: #### 2 850792 #### [facility] [address] [place] [address] Erythrocyte distribution width (RBC) [Ratio] 13.6 % Normal 10.9-14.2 [facility] Comment on above: Performed By: #### 2 787017 #### [facility] [address] [place] [address] Hematocrit (Bld) [Volume fraction] 39.5 % Normal 34.0-46.0 [facility] Comment on above: Performed By: #### 2 529136 #### [facility] [address] [place] [address] Hemoglobin (Bld) [Mass/Vol] 13.4 g/dL Normal 12.0-16.0 [facility] Comment on above: Performed By: #### 2 696187 #### [facility] [address] [place] [address] Lymphocytes (Bld) [#/Vol] 2.0 E9/L Normal 1.0-4.0 [facility] Comment on above: Performed By: #### 2 120045 #### [facility] [address] [place] [address] Lymphocytes/100 WBC (Bld) 35.9 % Normal 14.0-50.0 [facility] Comment on above: Performed By: #### 2 503887 #### [facility] [address] [place] [address] MCH (RBC) [Entitic mass] 30.9 pg Normal 27.0-34.0 [facility] Comment on above: Performed By: #### 2 142937 #### [facility] [address] [place] [address] MCHC (RBC) [Mass/Vol] 34.0 g/dL Normal 31.4-36.0 [facility] Comment on above: Performed By: #### 2 102442 #### [facility] [address] [place] [address] MCV (RBC) [Entitic vol] 90.9 fL Normal 80.0-100.0 [facility] Comment on above: Performed By: #### 2 213169 #### [facility] [address] [place] [address] Monocytes (Bld) [#/Vol] 0.3 E9/L Normal 0.2-1.0 [facility] Comment on above: Performed By: #### 2 492966 #### [facility] [address] [place] [address] Neutrophils (Bld) [#/Vol] 3.1 E9/L Normal 2.0-7.5 [facility] Comment on above: Performed By: #### 2 077172 #### [facility] [address] [place] [address] Neutrophils/100 WBC (Bld) 54.2 % Normal 36.0-75.0 [facility] Comment on above: Performed By: #### 2 793602 #### [facility] [address] [place] [address] Platelet mean volume (Bld) [Entitic vol] 10.1 fL Normal 6.4-10.8 [facility] Comment on above: Performed By: #### 2 326218 #### [facility] [address] [place] [address] Platelets (Bld) [#/Vol] 33.0 E9/L Abnormal 150.0-500.0 [facility] Comment on above: Result Comment: Resu lts called to DR. MICHELLE by [id number] and read back on 10/09/2023 19:59:47. Performed By: #### 2 297376 #### [facility] [address] [place] [address] RBC (Bld) [#/Vol] 4.3 E12/L Normal 4.3-5.9 [facility] Comment on above: Performed By: #### 2 387726 #### [facility] [address] [place] [address] RBC size Nom (Bld) NORMAL Invalid Interpretation Code [facility] Comment on above: Performed By: #### 2 978196 #### [facility] [address] [place] [address] WBC corrected for nucl RBC Auto (Bld) [#/Vol] 5.7 E9/L Normal 4.0-11.0 [facility] Comment on above: Performed By: #### 2 893211 #### [facility] [address] [place] [address] CHEMISTRYOrdered By: SYSTEM SYSTEM on 10-09-2023 Iron [...] first if no relief will refer to [facility] pain management for possible injection. 3. [...] bedtime), # 30 cap(s), Refills(s) 0, Pharmacy: [facility]/pharmacy #[id number], 157.4, cm, 09/17/23 10:18:00 EDT, Height/Length Dosing, 89.1, kg, 09/17/23 10:18:00 EDT, Weight Dosing gabapentin, 300 mg = 1 cap(s), Oral, BID, # 60 cap(s), Refills(s) 0, Pharmacy: [facility]/pharmacy #[id number], 157.4, cm, 10/09/23 10:28:00 EDT, [...] malignant neoplasm of female breast: Mother. Normal [facility] Comment on above: Result Comment: Elec tronically Signed By: Coty YEUNG, Yocasta Edwards\.br\Date and Time Signed: 10/09/23 10:52 EDT HEMATOLOGYOrdered [...] Resu lts called to DR. MICHELLE by [id number] and read back on 10/09/2023 19:59:47. RBC (Bld) [#/Vol] 4.3 E12/L Normal 4.3 - 5.9 E12/L Remisol Heme RBC size Nom (Bld) NORMAL *NA* (10/09/23 10:59 AM) Invalid Interpretation Code Remisol Heme WBC corrected for nucl RBC Auto (Bld) [#/Vol] 5.7 E9/L Normal 4.0 - 11.0 E9/L Remisol Heme Ironon 10-09-2023 Iron [Mass/Vol] 86 microgram/dL Normal 35-153 [facility] Comment on above: Performed By: #### 2 363648 #### [facility] [address] [place] [address] TIBC Calculatedon 10-09-2023 Iron binding capacity [Mass/Vol] 357 microgram/dL Normal 250-400 [facility] Comment on above: Performed By: #### 1 [id number] #### [facility] [address] [place] [address] Transferrin [Mass/Vol] 255 mg/dL Normal 200-370 [facility] Comment on above: Performed By: #### 1 [id number] #### [facility] [address] [place] [address] Outside Mammographyon 2023 Outside Mammography [id number] #1.00TIFF Normal [facility] RAD - MISCon 09-24-2023 RAD - MISC [id number] #1.00TIFF Normal [facility] Reminderson 09-18-2023 Reminders - From: Yocasta Vidal [...] 34.4 % (14.0 - 50.0) 09/17/2023 10:41 [place] Auto 4.6 % (4.0 - 14.0) 09/17/2023 10:41 Eos Auto 3.7 % (0.0 - 8.0) 09/17/2023 10:41 Basophil Auto 0.6 % (0.0 - 2.0) 09/17/2023 10:41 Neutro Absolute 4.7 E9/L (2.0 - 7.5) 09/17/2023 10:41 Lymph Absolute 2.9 E9/L (1.0 - 4.0) 09/17/2023 10:41 [place] Absolute 0.4 E9/L (0.2 - 1.0) 09/17/2023 [...] 5.60) Patient informed and voices understanding. Normal [facility] Ambulatory Visit Summaryon 0 09-17-2023 Ambulatory Visit [...] What to do next Scheduled Follow-Up Appointments 2023 10:20 AM EDT With: Yocasta Vidal Where: [facility] Nyla Normal [facility] CBC w/ Auto Diffon 4 Basophils/100 WBC (Bld) 0.6 % Normal 0.0-2.0 [facility] Comment on above: Performed By: #### 1 [id number], 4641407, 5856934, 8480081, 1362411 ####[facility] [address] [place] [address] Basophils/Leukocytes Auto (Bld) [Pure # fraction] 0.1 E9/L Normal 0.0-0.2 [facility] Comment on above: Performed By: #### 1 3498947, 3045621, 1396954, 8148618, 0235358 ####[facility] [address] [place] [address] Eosinophils (Bld) [#/Vol] 0.3 E9/L Normal 0.0-0.5 [facility] Comment on above: Performed By: #### 1 5190918, 6719005, 0638536, 0520891, 4014294 ####[facility] [address] [place] [address] Eosinophils/100 WBC (Bld) 3.7 % Normal 0.0-8.0 [facility] Comment on above: Performed By: #### 1 6055059, 3983406, 2567210, 7416596, 4364996 ####[facility] [address] [place] [address] Erythrocyte distribution width (RBC) [Ratio] 13.8 % Normal 10.9-14.2 [facility] Comment on above: Performed By: #### 1 2865524, 0379636, 9075472, 3003988, 2682146 ####[facility] [address] [place] [address] Hematocrit (Bld) [Volume fraction] 40.9 % Normal 34.0-46.0 [facility] Comment on above: Performed By: #### 1 6472653, 8228253, 4682248, 4684653, 7858872 ####[facility] [address] [place] [address] Hemoglobin (Bld) [Mass/Vol] 13.6 g/dL Normal 12.0-16.0 [facility] Comment on above: Performed By: #### 1 8504585, 6214527, 5172541, 7092753, 9936450 ####[address] [address] Lymphocytes (Bld) [#/Vol] 2.9 E9/L Normal 1.0-4.0 [facility] Comment on above: Performed By: #### 1 2248780, 6981516, 8049393, 9106338, 9825024 ####[address] [address] Lymphocytes/100 WBC (Bld) 34.4 % Normal 14.0-50.0 [facility] Comment on above: Performed By: #### 1 8728926, 4664658, 4652537, 6084229, 6159571 ####[address] [address] MCH (RBC) [Entitic mass] 30.7 pg Normal 27.0-34.0 [facility] Comment on above: Performed By: #### 1 0353017, 3964266, 9863750, 8703630, 9868094 ####[address] [address] MCHC (RBC) [Mass/Vol] 33.3 g/dL Normal 31.4-36.0 [facility] Comment on above: Performed By: #### 1 5475410, 2491110, 0399541, 8924100, 1518747 ####[address] [address] MCV (RBC) [Entitic vol] 92.3 fL Normal 80.0-100.0 [facility] Comment on above: Performed By: #### 1 9996451, 1589251, 4055857, 9241881, 4317876 ####[address] [address] Monocytes (Bld) [#/Vol] 0.4 E9/L Normal 0.2-1.0 [facility] Comment on above: Performed By: #### 1 5351832, 9015763, 5136630, 8225333, 4952580 ####[address] [address] Neutrophils (Bld) [#/Vol] 4.7 E9/L Normal 2.0-7.5 [facility] Comment on above: Performed By: #### 1 5791924, 3294215, 7422779, 5034153, 7930400 ####[address] [address] Neutrophils/100 WBC (Bld) 56.7 % Normal 36.0-75.0 [facility] Comment on above: Performed By: #### 1 4619861, 9169910, 7585981, 4741078, 4592410 ####[address] [address] Platelet mean volume (Bld) [Entitic vol] 9.8 fL Normal 6.4-10.8 [facility] Comment on above: Performed By: #### 1 3288625, 5851553, 8879567, 8549515, 8259511 ####[address] [address] Platelets (Bld) [#/Vol] 70.0 E9/L Low 150.0-500.0 [facility] Comment on above: Performed By: #### 1 0828030, 5456675, 5232095, 5669225, 2429029 ####[facility] [address] [place] [address] RBC (Bld) [#/Vol] 4.4 E12/L Normal 4.3-5.9 [facility] Comment on above: Performed By: #### 1 3050894, 0017728, 2545802, 9435439, 5104997 ####[facility] [address] [place] [address] WBC corrected for nucl RBC Auto (Bld) [#/Vol] 8.3 E9/L Normal 4.0-11.0 [facility] Comment on above: Performed By: #### 1 7042510, 3999811, 1442633, 7259188, 1409479 ####[facility] [address] [place] [address] CHEMISTRYOrdered By: SYSTEM SYSTEM on 09-17-2023 Albumin [...] 09-17-2023 Albumin [Mass/Vol] 4.0 g/dL Normal 3.3-5.0 [facility] Comment on above: Performed By: #### 1 8266586, 6378160, 3683211, 0173384, 7106963 ####[facility] [address] [place] [address] Albumin/Globulin (S) [Mass conc ratio] 1.3 Normal 1.1-2.2 [facility] Comment on above: Performed By: #### 1 3966104, 7962105, 4677839, 4931815, 0796986 ####[address] [place] [address] ALP [Catalytic activity/Vol] 66 Int._Unit/L Normal 21-98 [facility] Comment on above: Performed By: #### 1 8943173, 5898985, 0158133, 4769767, 0548075 ####[address] [address] ALT No additional P-5'-P [Catalytic activity/Vol] 12 Int._Unit/L Normal 6-46 [facility] Comment on above: Performed By: #### 1 4218939, 1576438, 2298403, 8879412, 9917504 ####[address] [address] AST [Catalytic activity/Vol] 11 Int._Unit/L Normal 5-43 [facility] Comment on above: Performed By: #### 1 5154219, 4603721, 8388648, 2282952, 7707952 ####[address] [place] [address] Bilirubin [Mass/Vol] 0.5 mg/dL Normal 0.0-1.1 [facility] Comment on above: Performed By: #### 1 9771197, 1158980, 3493359, 6982791, 2661491 ####[address] [place] [address] Globulin (S) [Mass/Vol] 3.2 g/dL Normal 1.4-4.0 [facility] Comment on above: Performed By: #### 1 9537070, 6062328, 4557678, 3685712, 6457265 ####[address] [place] [address] Protein [Mass/Vol] 7.2 g/dL Normal 6.0-7.8 [facility] Comment on above: Performed By: #### 1 8256574, 5512507, 0328462, 0468979, 6309710 ####[facility] [address] [address] Anion gap [Moles/Vol] 10 mmol/L Normal 6-16 [facility] Comment on above: Performed By: #### 1 6625661, 0288378, 2758245, 2796521, 9160030 ####[facility] [address] [place] [address] Calcium [Mass/Vol] 9.3 mg/dL Normal 8.9-11.1 [facility] Comment on above: Performed By: #### 1 5840823, 7520930, 4928610, 8796429, 1557798 ####[facility] [address] [place] [address] Chloride [Moles/Vol] 104 mmol/L Normal 101-111 [facility] Comment on above: Performed By: #### 1 9354737, 0850153, 4519265, 7868966, 1359296 ####[facility] [address] [address] CO2 [Moles/Vol] 27 mmol/L Normal 21-31 [facility] Comment on above: Performed By: #### 1 [id number], 5804630, 8133030, 1462123, [id number] ####[facility] [address] [facility] [place] [address] Creatinine [Mass/Vol] 0.7 mg/dL Normal 0.5-1.3 [facility] Comment on above: Performed By: #### 1 [id number], 6647517, 7419994, 9907248, 2162269 ####[facility] [address] [address] Glucose [Mass/Vol] 91 mg/dL Normal 55-199 [facility] Comment on above: Performed By: #### 1 [id number], 5738629, 3676441, 8702258, 4431506 ####[facility] [address] [place] [address] Potassium [Moles/Vol] 4.1 mmol/L Normal 3.5-5.3 [facility] Comment on above: Performed By: #### 1 [id number], 1538892, 4922813, 1808340, 8545002 ####[facility] [address] [place] [address] Sodium [Moles/Vol] 137 mmol/L Normal 135-145 [facility] Comment on above: Performed By: #### 1 1571313, 2398334, 3080521, 5701858, 8703965 ####[facility] [address] [place] [address] Urea nitrogen [Mass/Vol] 11 mg/dL Normal 5-21 [facility] Comment on above: Performed By: #### 1 [id number], 5850098, 7636006, 9987079, 8498192 ####[facility] [address] [place] [address] Urea nitrogen/Creatinine [Mass ratio] 16 No Units Normal 10-20 [facility] Comment on above: Performed By: #### 1 [id number], 7652552, 0411130, 9947504, 8988783 ####[facility] [address] [place] [address] Family Medicine Office/Clini c Noteon 09-17-2023 Family Medicine Office/Clinic Note HPI Staff Nicole is a 33 year old female presenting for yearly wellness Health Maintenance: Colonoscopy: n/a Dexa: n/a Mammo: 2022 normal, family hx mom with breast cancer. Would like order for [facility] Pap: May 2023 negative, Dr Geller in [place] Last Labs: nothing in the last year [...] Diff Comprehensive Metabolic Panel Lab Specimen Collect [id number] Lipid Panel Thyroid Stimulating Hormone 2. Breast cancer screening by mammogram (Z12.31: Encounter for screening mammogram for malignant neoplasm of breast) order for mammogram given Ordered: CBC w/ Auto Diff Comprehensive Metabolic Panel Lab Specimen Collect [id number] Lipid Panel Thyroid Stimulating Hormone 3. Non-smoker (Z78.9: Other specified health status) continue not smoking Ordered: Lab Specimen Collect 52055 4. Right elbow pain (M25.521: Pain in [...] BMI education complete Ordered: Lab Specimen Collect 73688 8. Fatigue (R53.83: Other fatigue) c/o fatigue Ordered: CBC w/ Auto Diff Comprehensive Metabolic Panel Lab Specimen Collect [id number] Lipid Panel Thyroid Stimulating Hormone Orders: amoxicillin, 875 mg = 1 tab(s), Oral, BID, X 7 day(s), # 14 tab(s), Refills(s) 0, Pharmacy: [facility]/pharmacy #[id number], 157.4, cm, 09/25/22 16:16:00 EDT, Height/Length Dosing, 93.3, kg, 09/25/22 16:16:00 EDT, Weight Dosing carisoprodol, 250 mg = 1 tab(s), Oral, Bedtime, PRN Insomnia, # 30 tab(s), Refills(s) 0, Pharmacy: [facility] #72, 157.4, cm, 09/25/22 16:16:00 EDT, Height/Length Dosing, 93.3, kg, 09/25/22 16:16:00 EDT, Weight Dosing celecoxib, 200 mg = 1 cap(s), Oral, Daily, # 90 cap(s), Refills(s) 0, Pharmacy: [facility] #72, 157.4, cm, 09/25/22 16:16:00 EDT, Height/Length Dosing, 93.3, kg, 09/25/22 16:16:00 EDT, Weight Dosing lorazepam, 0.5 mg = 1 tab(s), Oral, q12hr, PRN anxiety, # 20 tab(s), Refills(s) 0, Pharmacy: [facility] #72, 157.4, cm, 09/25/22 16:16:00 EDT, Height/Length Dosing, 93.3, kg, 09/25/22 16:16:00 EDT, Weight Dosing lorazepam, 0.5 mg = 1 tab(s), Oral, q12hr, PRN anxiety, # 20 tab(s), Refills(s) 0, Pharmacy: [facility]/pharmacy #[id number], 157.4, cm, 09/17/23 10:18:00 EDT, [...] Family H (more content not included)... Normal [facility] Comment on above: Result Comment: Elec tronically [...] E9/L Remisol Heme Lipid Panelon 09-17-[address] [facility] Comment on above: Result Comment: 'GERRY BLE TO REPORT. TRIG > 400 mg/dl' Result verified by Discern Rule. Performed result [facility] (Unable to Calculate) was sent as an Alpha code due the inability to calculate a valid numeric value. Performed By: #### 1 [id number], 7695427, 0665429, 2381254, 0291068 ####[facility] [address] [place] [address] Cholesterol [Mass/Vol] 171 mg/dL Normal 120-200 [facility] Comment on above: Performed By: #### 1 [id number], 9840658, 8194659, 9529798, 6207975 ####[facility] [address] [place] [address] Cholesterol in HDL [Mass/Vol] 35 mg/dL Invalid Interpretation Code [facility] Comment on above: Result Comment: '>= 60 LOW RISK' '<= 40 HIGH RISK' Performed By: #### 1 [id number], 9539393, 7728575, 4510209, 9231961 ####[facility] [address] [place] [address] Cholesterol in LDL [Mass/Vol] 64 mg/dL Normal <=129 [facility] Comment on above: Performed By: #### 1 6874989, 7747823, 3235658, 3580168, 8992756 ####[facility] [address] [place] [address] Triglyceride [Mass/Vol] 602 mg/dL High <=149 [facility] Comment on above: Performed By: #### 1 7237152, 2873986, 6577103, 1268517, 0241016 ####[address] [place] [address] Medication Consenton 024 Medication Consent [id number] #1.00TIFF Normal [facility] Physician Orderon 09-17-2023 Physician Order [id number] #1.00TIFF Normal [facility] TSHon 09-17-2023 TSH Qn 2.10 m[IU]/L Normal 0.34-5.60 [facility] Comment on above: Performed By: #### 1 [id number], 7642849, 9601974, 3502049, 7571764 ####[facility] [address] [place] [address] eGFRon 09-17-2023 eGFR 116 mL/min/1.73 m2 Normal >=59 [facility] Comment on above: Order Comment: Order added by Discern Expert. Performed By: #### 1 [id number], 4079830, 5718314, 1007381, 3380391 ####[facility] [address] [place] [address] Provider Letteron 03-25-2023 Provider Letter March 25, 2023 NICOLE CARTER [address] [place] [address] : 1990 To Whom It May Concern, Please excuse above patient from work today 03-25-23 due to daughters illness. Date of Illness: From: 03-25-23 To: 03-25-23 May Return to Work On:03-26-23 Restrictions: _ Comments: _ Sincerely, Family Medicine [address] [address] [facility] Provider Letter March 25, 2023 NICOLE CARTER [address] [place] [address] : 1990 To Whom It May Concern, Please excuse above patient from work today 03-25-23 due to daughters illness. Date of Illness: From: 03-25-23 To: 03-25-23 May Return to Work On:03-26-23 Restrictions: _ Comments: _ Sincerely, Normal [facility] Consultation Noteon 12-12-19 Consultation Note [id number] #1.00CD:127 [facility] COVID Quick Testingon 2022 Result Negative [employer] Other CBC AUTO DIFFon 01-01-2019 Basophils (Bld) [#/Vol] 0.0 103/ul Normal 0.0-0.1 [facility] Comment on above: Performed By: #### C BC #### [facility] [address] [place], [place] [address] Ephraim Brandi Basophils/100 WBC (Bld) 0.6 % Normal 0.2-2.0 [facility] Comment on above: Performed By: #### C BC #### [facility] [address] [place], [place] [address] Ephraim Brandi Eosinophils (Bld) [#/Vol] 0.4 103/ul Normal 0.0-0.7 [facility] Comment on above: Performed By: #### C BC #### [facility] [address] [place], [place] [address] Ephraim Brandi Eosinophils/100 WBC (Bld) 5.7 % Normal 0.9-7.0 [facility] Comment on above: Performed By: #### C BC #### [facility] [address] [place], [place] [address] Ephraim Brandi Erythrocyte distribution width (RBC) [Ratio] 12.8 % Normal 11.0-15.0 [facility] Comment on above: Performed By: #### C BC #### [facility] [address] [place], [place] [address] Ephraim Brandi Hematocrit (Bld) [Volume fraction] 42.9 % Normal 36.0-48.0 [facility] Comment on above: Performed By: #### C BC #### [facility] [address] [place] [address] Ephraim Brandi Hemoglobin (Bld) [Mass/Vol] 14.2 g/dL Normal 12.0-16.0 [facility] Comment on above: Performed By: #### C BC #### [facility] [address] [place], [place] [address] Ephraim Brandi IG # 0.02 10e3/ul Normal 0.00-0.03 [facility] Comment on above: Performed By: #### C BC #### [facility] [address] [place], [place] [address] Ephraim Brandi IG % 0.3 % Normal 0.0-0.5 [facility] Comment on above: Performed By: #### C BC #### [facility] [address] [place], [place] [address] Ephraim Brandi Lymphocytes (Bld) [#/Vol] 2.5 103/ul Normal 1.2-3.8 [facility] Comment on above: Performed By: #### C BC #### [facility] [address] [place], [place] [address] Ephraim Brandi Lymphocytes/100 WBC (Bld) 34.7 % Normal 20.5-60.0 [facility] Comment on above: Performed By: #### C BC #### [facility] [address] [place], [place] [address] Ephraim Brandi MANUAL DIFF REQ NO Normal [facility] Comment on above: Performed By: #### C BC #### [facility] [address] [place] [address] Ephraim Brandi MCH (RBC) [Entitic mass] 31.8 pg Normal 26.7-34.0 [facility] Comment on above: Performed By: #### C BC #### [facility] [address] [place], [place] [address] Ephraim Brandi MCHC (RBC) [Mass/Vol] 33.1 g/dL Normal 29.9-35.2 [facility] Comment on above: Performed By: #### C BC #### [facility] [address] [place], [place] [address] Ephraim Brandi MCV (RBC) [Entitic vol] 96.0 fL Normal 81.0-99.0 [facility] Comment on above: Performed By: #### C BC #### [facility] [address] [place] [address] Ephraim Brandi Monocytes (Bld) [#/Vol] 0.4 103/ul Normal 0.3-0.8 [facility] Comment on above: Performed By: #### C BC #### [facility] [address] [place] [address] Ephraim Brandi Monocytes/100 WBC (Bld) 5.4 % Normal 1.7-12.0 [facility] Comment on above: Performed By: #### C BC #### [facility] [address] [place] [address] Ephraim Brandi Neutrophils (Bld) [#/Vol] 3.8 103/ul Normal 1.4-6.5 [facility] Comment on above: Performed By: #### C BC #### [facility] [address] [place], [place] [address] Ephraim Brandi Neutrophils/100 WBC (Bld) 53.3 % Normal 43.0-75.0 [facility] Comment on above: Performed By: #### C BC #### [facility] [address] [place], [place] [address] Ephraim Brandi Platelet mean volume (Bld) [Entitic vol] 10.5 fL Normal 9.5-13.5 [facility] Comment on above: Performed By: #### C BC #### [facility] [address] [place], [place] [address] Ephraim Brandi Platelets (Bld) [#/Vol] 156 103/ul Normal 150-450 [facility] Comment on above: Performed By: #### C BC #### [facility] [address] [place] [id number] Ephraim Brandi RBC (Bld) [#/Vol] 4.47 106/ul Normal 4.20-5.40 [facility] Comment on above: Performed By: #### C BC #### [facility] [address] [place], [place] [address] Ephraim Brandi WBC (Bld) [#/Vol] 7.2 103/ul Normal 4.0-11.0 [facility] Comment on above: Performed By: #### C BC #### [facility] [address] [place] [phone] Ephraim Brandi PROF CHEM 8 (BAS METB)on Anion gap [Moles/Vol] 8.2 mmol/L Normal [facility] Comment on above: Performed By: #### B MP #### [facility] [address] [place], [place] [address] Ephraim Brandi Calcium [Mass/Vol] 9.6 mg/dL Normal 8.4-10.2 [facility] Comment on above: Performed By: #### B MP #### [facility] [address] [place] [address] Ephraim Brandi Chloride [Moles/Vol] 105 mmol/L Normal 98-107 [facility] Comment on above: Performed By: #### B MP #### [facility] [address] [place] [address] Ephraim Brandi CO2 [Moles/Vol] 29.8 mmol/L Normal 22.0-30.0 [facility] Comment on above: Performed By: #### B MP #### [facility] [address] [place], [place] [address] Ephraim Brandi Creatinine [Mass/Vol] 0.71 mg/dL Normal 0.52-1.04 [facility] Comment on above: Performed By: #### B MP #### [facility] [address] [place], [place] [address] Ephraim Brandi EGFR-AF GHANAIAN >60 Normal >=60 [facility] Comment on above: Performed By: #### B MP #### [facility] [address] [place], [place] [address] Ephraim Brandi EGFR-NON AF GHANAIAN >60 Normal >=60 [facility] Comment on above: Performed By: #### B MP #### [facility] [address] [place] [address] Ephraim Brandi Glucose [Mass/Vol] 90 mg/dL Normal 74-106 [facility] Comment on above: Performed By: #### B MP #### [facility] [address] [place] [address] Ephraim Brandi Potassium [Moles/Vol] 4.0 mmol/L Normal 3.4-5.0 [facility] Comment on above: Performed By: #### B MP #### [facility] [address] [place] [address] Ephraim Brandi Sodium [Moles/Vol] 139 mmol/L Normal 137-145 [facility] Comment on above: Performed By: #### B MP #### [facility] [address] [place] [address] Ephraim Brandi Urea nitrogen [Mass/Vol] 9.0 mg/dL Normal 7.0-17.0 [facility] Comment on above: Performed By: #### B MP #### [facility] [address] [place] [address] Ephraim Brandi Urea nitrogen/Creatinine [Mass ratio] 12.7 mg/mg Normal [facility] Comment on above: Performed By: #### B MP #### [facility] [address] [place] [address] Ephraim Brandi Vital Signs Date Time Vital Sign Value Performing Clinician Facility 11-20-2023 09:45-0400 Body temperature 97.88 [degF] [facility] 11-20-2023 09:45-0400 Diastolic blood pressure 71 mm[Hg] [facility] 11-20-2023 09:45-0400 Heart rate 96 /min [facility] 11-20-2023 09:45-0400 Mean blood pressure 85 mm[Hg] [facility] 11-20-2023 09:45-0400 Respiratory rate 16 /min [facility] 11-20-2023 09:45-0400 SaO2% (BldA) [Mass fraction] 99 % [facility] 11-20-2023 09:45-0400 Systolic blood pressure 112 mm[Hg] [facility] 10-16-2023 09:12-0400 Body temperature 98.06 [degF] [facility] 10-16-2023 09:12-0400 Diastolic blood pressure 75 mm[Hg] [facility] 10-16-2023 09:12-0400 Heart rate 90 /min [facility] 10-16-2023 09:12-0400 Mean blood pressure 85 mm[Hg] [facility] 10-16-2023 09:12-0400 Respiratory rate 16 /min [facility] 10-16-2023 09:12-0400 SaO2% (BldA) [Mass fraction] 98 % [facility] 10-16-2023 09:12-0400 Systolic blood pressure 106 mm[Hg] [facility] 07-17-2023 13:04-0500 Body height 156.2 cm [facility] 07-17-2023 13:04-0500 Body mass index (BMI) [Ratio] 36.62 kg/m2 [facility] [employer] [facility] 07-17-2023 13:04-0500 Body weight 89.36 kg [facility] [employer] [facility] 07-17-2023 13:04-0500 Diastolic blood pressure 76 mm[Hg] [facility] [employer] [facility] 07-17-2023 13:04-0500 Systolic blood pressure 110 mm[Hg] [facility] 12-10-2022 13:55-0400 Body height 157.48 cm Letha Herring Other [employer] Other 12-10-2022 13:55-0400 Body mass index (BMI) [Ratio] 37.86 kg/m2 Letha Herring Other [employer] Other 12-10-2022 13:55-0400 Body temperature 97.7 [degF] Letha Herring Other [employer] Other 12-10-2022 13:55-0400 Body weight 93.9 kg Letha Herring Other [employer] Other 12-10-2022 13:55-0400 Diastolic blood pressure 85 mm[Hg] Letha Herring Other [employer] Other 12-10-2022 13:55-0400 Respiratory rate 18 /min Letha Herring Other [employer] Other 12-10-2022 13:55-0400 SaO2% (BldA) [Mass fraction] 100 % Letha Herring Other [employer] Other 12-10-2022 13:55-0400 Systolic blood pressure 122 mm[Hg] Letha Herring Other [employer] Other 08-29-2022 10:00-0400 Body height 157.48 cm Crista Hernandez Other [employer] Other 08-29-2022 10:00-0400 Body mass index (BMI) [Ratio] 36.03 kg/m2 Crista Hernandez Other [employer] Other 08-29-2022 10:00-0400 Body temperature 97.3 [degF] Crista Hernandez Other [employer] Other 08-29-2022 10:00-0400 Body weight 89.36 kg Crista Hernandez Other [employer] Other 08-29-2022 10:00-0400 Respiratory rate 18 /min Crista Hernandez Other [employer] Other 08-29-2022 10:00-0400 SaO2% (BldA) [Mass fraction] 98 % Crista Hernandez Other [employer] Other Encounters Encounter Date Encounter Type Care Provider Facility Start: 11-20-2023 End: 11-20-2023 ambulatory Brody Gómezsoheila [facility] Start: 11-20-2023 End: 11-20-2023 Patient encounter procedure Brodysteff Weston [facility] Start: 10-23-2023 ambulatory Brodysteff Coronavianneysoheila [facility] ity[facility] Start: 10-16-2023 End: 10-16-2023 ambulatory Brodysteff Coronavianneysoheila Facility:[facility] Start: 10-16-2023 End: 10-16-2023 Patient encounter procedure Brodysteff Weston [facility] Start: 10-09-2023 End: 10-10-2023 ambulatory Yocasta Ansari Facility:[facility] Start: 10-09-2023 End: 10-09-2023 Lab Drop off Yocasta L Coty [facility] Start: 10-09-2023 End: 10-09-2023 ambulatory MAYONNAISE MIXER Yocasta L Coty Facility: [facility] Start: 09-17-2023 End: 09-17-2023 Lab Drop off Yocasta L Coty [facility] Start: 09-17-2023 End: 09-17-2023 ambulatory MAYONNAISE MIXER Yocasta L Coty Facility:[facility] Start: 07-30-2023 End: 07-30-2023 ambulatory MAYONNAISE MIXER Yocasta L Coty Facility:[facility] Start: 07-17-2023 End: 07-17-2023 ambulatory [place] Joann [facility] Start: 07-17-2023 Encounter for gynecological examination (general) (routine) without abnormal findings [facility] Start: 07-17-2023 End: 07-17-2023 Patient encounter procedure [facility] Start: 07-17-2023 End: 07-17-2023 Periodic preventive med est patient 18-39 yrs [facility] [employer] [facility] [place] Comment on above: Well woman exam with routine gynecological exam (Primary Dx); Family hx-breast malignancy; At high risk for breast cancer; Standardized adult depression screening tool completed Start: 12-10-2022 End: 12-10-2022 ambulatory Letha Herring Other [employer] Other Start: 12-10-2022 Office outpatient vi sit 15 minutes Letha Herring [facility] Start: 12-09-2022 ambulatory MAYONNAISE MIXER Yocasta Coty Facilit y:[facility] Start: 08-29-2022 End: 08-29-2022 ambulatory Crista Hernandez Other [employer] Other Start: 08-29-2022 Office outpatient vi sit 15 minutes Crista Hernandez [facility] Start: 01-01-2019 End: 01-02-2019 Patient encounter procedure DANA RAMIREZ Facility:[facility] Procedures Date Procedure Procedure Detail Performing Clinician Start: 07-17-2023 Adult depression scr eening assessment [facility] [employer] Start: 05-23-2021 Microscopic observat ion [Identifier] in Cervix by Cyto stain [facility] [employer] Gallbladder structur e (body structure) Yocasta Ansari Comment on above: removed Scoliosis deformity of spine (disorder) Yocasta Ansari Comment on above: surgery Plan of Treatment Date Care Activity Detail Author Start: 07-17-2024 Adult BMI Follow Up Plan Adult BMI Follow Up Plan [facility] [email or web address] [facility] Start: 07-17-2024 Adult BMI Screening [facility] Start: 07-17-2024 Depression Screening Depression Scre ening [facility] [employer] Start: 07-17-2024 Tobacco Screening Tobacco Screening [facility] [employer] Start: 05-23-2024 Screening for malign ant neoplasm of cervix Pap Smear [facility] [employer] Start: 07-17-2023 End: 09-13-2024 DBT Breast - bilateral screening Mammography screening bilateral with CAD Imaging Routine Family hx-breast malignancy At high risk for breast cancer Expected: 07/17/2023, Expires: 09/13/2024 [employer] Work Phone: Comment on above: Expected: 07/17/2023 , Expires: 09/13/2024 Start: 01-24-2023 Influenza vaccination Influenza Vacc ine [facility] Start: 02-25-2008 DTaP,Tdap and Td Vaccines (1 - Tdap) DTaP,Tdap and Td Vaccines (1 - Tdap) [facility] Payers Date Payer Category Payer Unknown [employer] P[employer]/TRUST [id number] 2017-Present [phone] [address] [place] [address] [id number] 1989 Unknown [id number] 1989 Unknown [id number] 1989 Unknown [id number] 1989 Unknown [id number] 1989 Unknown [id number] 1989 Unknown [id number] [id number] 1989 Unknown [id number] [id number] 1989 Unknown [id number] [id number] 1989 Unknown [id number] 1959 Unknown [id number] Social History Date Type Detail Facility Unknown if ever smoked [employer] Other Start: 11-02-2018 End: 07-17-2023 Sex Assigned At [facility] Other Start: 06-18-2022 End: 11-20-[address] [facility] Ex-smoker [facility] History of tobacco use Current smoker [facility] Start: 06-18-2022 Tobacco use and exposure Smokeless tobacco non-user [facility] Start: 07-17-2023 Alcohol intake Current drinke r of alcohol (finding) [facility] Start: 11-02-2018 End: 07-17-2023 History of Social function [facility] Adolescent depressio n screening assessment 5 [facility] Start: 05-23-2021 Alcohol Comment rarely [facility] Start: 1990 Sex Assigned At Not on file P [facility] Start: 09-25-2022 End: 10-09-2023 Tobacco smoking status Never smoked tobacco (finding) [facility] [place] Clinical Notes 08-29-2022 to 11-20-2023 Sandra Winchester, LINER INSERTER-INDUSTRIAL ECOLOGY TECHNICIAN - 07/17/2023 1:00 PM EST Note Date & Type Note Facility 11-20-2023 Note Oncology Progress No te Chief Complaint Follow up on Thrombocytopenia, Pt would like to know what a hemangioma is ( it was found on her spleen during her ultrasound. Diagnoses Ordered: ONC Office Visit 30 Min Oncological History/ROS/PE/Assessment and Plan 33-year-old female referred for thrombocytopenia by her primary care provider Ycoasta [facility]. Medical history includes depression, anxiety, hypertension, reflux. Outpatient medications include atenolol, gabapentin, Celexa, Prilosec, albuterol as needed. 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 Review of CBC from September 17, [...] through diligent diet. no lumps or bumps 11/20/23 she is doing well overall. She had normal hepatitis profile. copper level was normal. HIV was negative. zinc was normal. she had 6 wks of plt count between 35 and 70. no new issues. minimal bruising but she is active, with a 7 year old child and a dog PHYSICAL EXAMINATION ECOG PS:0 General: Alert and oriented, no acute distress. [...] & affect. assessment plan thrombocytopenia, likely ITP, chronic. she is not on any meds that should cause this. no signs or symptoms of lymphoma or leukemia. variable btw 70 and 30s. will monitor for now. additional labs are pending. hiv and hepatitis a,b,c were negative. will trend out weekly for a month then f/u. additionally will check zinc and copper and mma. Follow-up No qualifying data available f/u 6 months. monthly to q6wk cbc (preferably in NON EDTA tube). Medications atenolol 25 mg Tab, 25 mg= [...] This Visit - Last 24 Hours T: 36.6 ?C (Oral) HR: 96 (Peripheral) RR: 16 BP: 112/71 SpO2: 99% HT: 157 cm HT: 157.0 cm WT: 87.8 kg WT: 87.8 kg (Dosing) BMI: 35.62 BSA: 1.96 Staging Information No information available Labs Common [...] % 10/09/23 Lymph Auto 34.4 % 09/17/23 [place] Auto 4.6 % 10/09/23 [place] Auto 4.6 % 09/17/23 Eos Auto 4.6 % 10/09/23 Eos Auto 3.7 % 09/17/23 Basophil Auto 0.7 % 10/09/23 Basophil Auto 0.6 % 09/17/23 Neutro Absolute 3.1 E9/L 10/09/23 Neutro Absolute 4.7 E9/L 09/17/23 Lymph Absolute 2 E9/L 10/09/23 Lymph Absolute 2.9 E9/L 09/17/23 [place] Absolute 0.3 E9/L 10/09/23 [place] Absolute 0.4 E9/L 09/17/23 Eos Absolute 0.3 E9/L 10/09/23 Eos Absolute 0.3 E9/L 09/17/23 Basophil Absolute 0 E9/L 10/09/23 Basophil Absolute 0.1 E9/L 09/17/23 Path Review Path Review 10/09/23 Glucose Lvl 91 mg/dL 09/17/23 BUN 11 mg/dL 09/17/23 Creatinine 0.7 mg/dL 09/17/23 Potassium Lvl 4.1 mmol/L 09/17/23 Chloride 104 mmol/L more content not included)... [facility] 10-16-2023 Hospital Discharge instructions Patient Education 10/16/2023 09:22:28 Bone Marrow [...] including vitamins, herbs, eye drops, creams, and cdew-lmu-dolspyx medicines. Any problems you or family members [...] provider tells you to take them. Taking iwud-vtm-qfyscsv medicines, vitamins, herbs, and supplements. General instructions [...] including vitamins, herbs, eye drops, creams, and mdfk-jyk-cngihpt medicines. Plan to have someone take you [...] provider. Document Revised: 09/28/2019 Document Reviewed: 09/28/2019 [employer] Patient Education 2022 [employer]. Follow Up Care 10/15/2023 13:32:38 With:Brody Weston DO, ONC Address: [facility] [place] [address]- [phone] Fax Business (1) When: Unknown Comments:weekly cbc,check zinc and copper with next labs.f/u in 1 month. [facility] 10-09-2023 Evaluation + Plan note Diagnostic Tests PendingPath. Review 10/09/23 [facility] 07-17-2023 History of Present illness Narrative Annual Well Woman Visit 07/17/2023 Cecilio Carter is a 33 y.o. 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 Follow up as needed. Next pap due 2025 per ASCCP guidelines. Discussed taking a multivitamin. Discussed Calcium and Vitamin D for prevention of osteoporosis. HPV vaccine is recommended between 9-45 yo. Can be received at [employer] or the [employer] department. Discussed need for yearly mammogram after 40 yo. Discussed colon cancer screening recommendations to begin at 45 yo, patient to discuss with PCP. All questions answered. NAREN Villanueva APRN-CNP Lisa M Franco, APRN-CNP 07/17/23 1329 documented in this encounter [employer] 12-10-2022 Evaluation note Encounter Date Diagnosis Assessment [...] understanding and is agreeable to treatment plan. [employer] Other 04-06-2023 Evaluation note* Encounter Date Diagnosis [...] no improvement in 2 to 3 days. [employer] Other Evaluation + Plan note Future Appointments Appointment Date:10/09/2023 10:20:00 AM Scheduled Provider:Yocasta Vidal [facility] Future Appointments Appointment [...] 10/22/23 * CBC w/ Auto Diff [facility] Future Appointments Appointment Date:05/27/2024 11:00:00 AM Scheduled Provider:Brody Weston DO Location:[facility]ONCOLOG[facility] Appointment Type:ONC Office Visit 20 (FT) Diagnostic Tests Pending * CBC w/ Auto Diff [facility] Diagnosis Well woman exam with routine gynecological exam- Primary Routine gynecological examination Family hx-breast malignancy At high risk for breast cancer Standardized adult depression screening tool completed [facility] N[facility] - Reported* Type Description Date Medical History anxiety Medical History depression Surgical History cholecystectomy 2013 Hospitalization History see above [employer] Other History general Narrative - Reported* Type Description Date Medical History anxiety Medical History depression Medical History high blood pressure Medical History Esophageal reflux Surgical History cholecystectomy 2013 Hospitalization History see above [employer] Other Hospital course Narrative No data available for this section [facility] No data available for this section [facility]* Attachments The following attachments cannot be sent through Care Everywhere. * Health Risks of a High BMI (Syrian) * Lowering Your Risk of Breast Cancer (Syrian) [facility] No data available for this section [facility] Summary Purpose Family History No Family History Records FoundNo Family History Records Found No data available for this section No data available for this section No Family History Records FoundNo Family History Records FoundNo Family History Records FoundNo Family History Records Found No data available for this section No Family History Records Found No data available for this section No Family History Records Found Advance Directives No Advanced Directives Records FoundNo Advanced Directives Records FoundNo Advanced Directives Records FoundNo Advanced Directives Records FoundNo Advanced Directives Records FoundNo Advanced Directives Records FoundNo Advanced Directives Records FoundNo Advanced Directives Records Found Additional Source Comments INFORMATION SOURCE (unrecogn ized section and content) DATE CREATED AUTHOR 01/09/2019 [facility] DATE CREATED AUTHOR AUTHOR'S ORGANIZ ATION 07/25/2023 [facility] DATE CREATED AUTHOR AUTHOR'S ORGANIZ ATION 10/12/2023 [facility] [place] [facility] DATE CREATED AUTHOR AUTHOR'S ORGANIZ ATION 10/30/2023 [facility] DATE CREATED AUTHOR AUTHOR'S ORGANIZ ATION [facility] REASON FOR VISIT (unrecogniz ed section and content) Reason Comments Gynecologic Exam Pt is here for el l exam. Care Teams (unrecognized sec tion and content) Emergency Spill Response Technician Relationship Specialty Start Date End Date Dana Ramirez MD [address] [place] [address] PCP - General Family Medicine 05/23/21 FOR [...] BE BASED ON THE PRIMARY CLINICAL RECORDS. [employer]. provides no warranty or guarantee of the accuracy or completeness of information in this document.
[2023-12-23 08:40] LABS: Basophils Percent Auto 0.4 % (0.2-2.0); Eosinophils Absolute Auto 0.4 10^3/uL (0.0-0.7); Eosinophils Percent Auto 4.3 % (0.9-7.0); Hematocrit 38.9 % (36.0-48.0); Hemoglobin 13.2 g/dL (12.0-16.0); Immature Granulocytes Abs Auto 0.04 10^3/uL (0.00-0.03); Immature Granulocytes Pct Auto 0.4 % (0.0-0.5); Lymphocytes Absolute Auto 2.4 10^3/uL (1.2-3.8); Lymphocytes Percent Auto 25.7 % (20.5-60.0); Mean Corpuscular HGB Conc 33.9 g/dL (29.9-35.2); Mean Corpuscular Hemoglobin 31.2 pg (26.7-34.0); Monocytes Absolute Auto 0.5 10^3/uL (0.3-0.8); Monocytes Percent Auto 5.1 % (1.7-12.0); Neutrophils Absolute Auto 5.9 10^3/uL (1.4-6.5); Neutrophils Percent Auto 64.1 % (43.0-75.0); Red Blood Count 4.23 10^6/uL (4.20-5.40); Red Cell Distribution Width 13.7 % (11.0-15.0)
[2023-12-23 09:05] LABS: Platelet Count 46 10^3/uL (150-450)
[2023-12-23 09:06] LABS: Mean Platelet Volume 11.1 fL (9.5-13.5); White Blood Count 9.6 10^3/uL (4.0-11.0)
== END 2023-12-23 08:12 | disposition home or self-care (01) ==
LOC: LAB 08:13
PROVIDERS: PCP Nurse Practitioner; Visit Provider Internal Medicine
DX: D69.6 Thrombocytopenia, unspecified (principal)
CPT/HCPCS: 36415; 85025

== ENCOUNTER 2024-01-14 14:59 | Emergency (ER) | payer BC, SELFPAY ==
[2024-01-14 15:02] VITALS: BP 136/92; PULSE 116; TEMP 36.9; O2SAT 100; BMI 35.9
--- NOTE | 2024-01-14 15:08 | ED.GENADUL1 ---
HPI HPI - General Adult General Chief complaint: Urogenital-Female Stated complaint: Urinary Retention, Nausea/Vomiting Time Seen by Provider: 01/14/24 15:01 Source: patient Mode of arrival: walk-in Limitations: no limitations History of Present Illness HPI narrative: Patient is a 33-year-old female who presents to this emergency department for continued pain in the left flank. She was seen at [facility] emergency department several hours ago and states she was diagnosed with a kidney stone. She states she continues to have urinary hesitancy and decreased urine output and is concerned she has a urinary tract infection. She states she did provide a urine specimen at [facility] but no one gave her her results so she does not know if she has a UTI. She was apparently prescribed Zofran, oxycodone and naproxen but states that the pharmacy did not have the medication ready for her and she could not make 2 trips to the pharmacy due to constraints with gasoline in her vehicle, so she drove to this emergency department for pain control. Related Data Previous Rx's ?Medication ?Instructions ?Recorded ciprofloxacin HCl 500 mg tablet 500 mg PO Q12H #14 tabs 01/14/24 phenazopyridine 200 mg tablet 200 mg PO Q8H 2 days #6 tabs 01/14/24 (Pyridium) Allergies Allergy/AdvReac Type Severity Reaction Status Date / Time prednisone AdvReac Mild tachycardia Verified 01/14/24 15:02 sertraline [From Zoloft] AdvReac Mild Tachycardia Verified 01/14/24 15:02 Opioid HPI Opioid Management Most Recent Opioid Data: Last Pain Scale 5 01/14/24 15:29 Last MAR Pain Assessment 01/14/24 15:29 Exam Constitutional Vital Signs, click to edit/add: Last Vital Signs Temp 98.4 F 01/14/24 15:02 Pulse 116 H 01/14/24 15:02 Resp 18 01/14/24 15:02 BP 136/92 H 01/14/24 15:02 Pulse Ox 100 01/14/24 15:02 O2 Del Method Room Air 01/14/24 15:02 Course Vital Signs Vital signs: Vital Signs Temperature 98.4 F 01/14/24 15:02 Pulse Rate 116 H 01/14/24 15:02 Respiratory Rate 18 01/14/24 15:02 Blood Pressure 136/92 H 01/14/24 15:02 Pulse Oximetry 100 01/14/24 15:02 Oxygen Delivery Method Room Air 01/14/24 15:02 Temperature 98.4 F 01/14/24 15:02 Pulse Rate 116 H 01/14/24 15:02 Respiratory Rate 18 01/14/24 15:02 Blood Pressure 136/92 H 01/14/24 15:02 Pulse Oximetry 100 01/14/24 15:02 Oxygen Delivery Method Room Air 01/14/24 15:02 Medical Decision Making MDM Narrative Medical decision making narrative: Patient declined morphine, she was given IV fluids, Toradol, Zofran. She had no episodes of emesis in the ER and tolerated ice chips. Records from [facility] show that the patient had a 2 mm stone at the proximal ureter, otherwise unremarkable labs although there was only a dip urine performed so urine specimen was obtained here in the emergency department showing a nitrite positive urinary tract infection. Patient discharged home on Cipro, she should continue her other prescriptions and follow-up with urology as directed. Return to the emergency department if symptoms change or worsen. SUPERVISED APC VISIT, PHYSICIAN ATTESTATION: Based on the medical record the care appears appropriate. ? Medical Records Medical records reviewed: Yes I reviewed the patient's medical records Lab Data Lab results reviewed: Yes I reviewed the patient's lab results Labs: Lab Results 01/14/24 Range/Units 16:21 Urine Color Lt. yellow (YELLOW) Urine Clarity Clear (CLEAR) Urine pH 6.0 (5.0-9.0) Ur Specific [place] 1.010 (1.005-1.025) Urine Protein Negative (NEG/TRACE) mg/dL Urine Glucose (UA) Negative (NEGATIVE) mg/dL Urine Ketones Negative (NEGATIVE) mg/dL Urine Occult Blood Large A (NEGATIVE) Urine Nitrite Positive A (NEGATIVE) Urine Bilirubin Negative (NEGATIVE) Urine Urobilinogen 0.2 (0.2-1.0) EU/dL Ur Leukocyte Esterase Trace A (NEGATIVE) Urine RBC 10-20 A (0-2) #/HPF Urine WBC 2-5 A (NONE SEEN) #/HPF Ur Squamous Epith Cells Moderate A (NONE/RARE) #/LPF Urine Crystals None seen (None Seen) #/HPF Urine Bacteria Large A (NONE SEEN) #/HPF Urine Casts None seen (NONE SEEN) #/LPF Urine Mucus Moderate A (NONE SEEN) Ur Culture Indicated? Yes Discharge Plan Discharge Stand Alone Forms: Work/School Release, Portal Instructions Chief Complaint: Urogenital-Female Clinical Impression: Urinary tract infection Patient Disposition: Home, Self-Care Time of Disposition Decision: 16:38 Condition: Good Prescriptions / Home Meds: New phenazopyridine [Pyridium] 200 mg tablet 200 mg PO Q8H 2 Days Qty: 6 0RF ciprofloxacin HCl 500 mg tablet 500 mg PO Q12H Qty: 14 0RF Print Language: Romansh Instructions: Urinary Tract Infection in Women (ED) Referrals: ROD LORA [Primary Care Provider] - 1 week Discharge Date/Time: 01/14/24 16:45
[2024-01-14] MEDS: ONDANSETRON PF 4 MG/2 ML VIAL IV (15:20)
[2024-01-14] MEDS: KETOROLAC TROMETHAMINE 30 MG/ML VIAL IVP (15:20)
[2024-01-14] MEDS: 0.9 % SODIUM CHLORIDE 1,000 ML 999 ML IV (15:21)
[2024-01-14 16:34] LABS: Bilirubin Urine NEGATIVE (NEGATIVE); Blood Urine LARGE (NEGATIVE); Clarity Urine CLEAR (CLEAR); Color Urine LT. YELLOW (YELLOW); Glucose Urine UA NEGATIVE (NEGATIVE); Ketones Urine NEGATIVE (NEGATIVE); Leukocyte Esterase Urine TRACE (NEGATIVE); Nitrite Urine POSITIVE (NEGATIVE); Protein Urine NEGATIVE (NEG/TRACE); Urine Microscopic Indicated YES; Urobilinogen Urine 0.2 EU/dL (0.2-1.0)
[2024-01-14 16:53] LABS: Bacteria Urine LARGE #/HPF (NONE SEEN); Mucus Urine MODERATE (NONE SEEN)
[2024-01-14 16:54] LABS: Cast Seen? NONE SEEN #/LPF (NONE SEEN); Crystals Seen? None Seen #/HPF (None Seen); Squamous Epithelial Cell Urine MODERATE #/LPF (NONE/RARE); Urine Culture Indicated YES
== END 2024-01-14 16:45 | disposition home or self-care (01) ==
PROVIDERS: Physician Assistant; Emergency Provider Emergency Medicine; PCP Nurse Practitioner
DX: N39.0 Urinary tract infection, site not specified (principal); N20.1 Calculus of ureter
CPT/HCPCS: 81001; 87086; 87186; 96374; 96375; 99284; J1885; J2270; J2405

== ENCOUNTER 2024-02-16 11:29 | Outpatient (OUT) | payer BC, SELFPAY ==
--- OUTSIDE RECORDS SUMMARY | 2024-02-16 11:50 | XMS_ITS | CCD ---
Author Organization [facility] Care Team Providers Care Peritoneal Dialysis Registered Nurse Name Role Phone DANA RAMIREZ Admitting Unavailable DANA RAMIREZ Attending Unavailable DANA RAMIREZ Referring Unavailable DANA RAMIREZ Consulting Unavailable Crista Hernandez Unavailable Letha Herring Unavailable Dana Ramirez MD Primary Care Provider DANA RAMIREZ Referring Unavailable DANA RAMIREZ Primary Care Unavailable CotySandradi Jerry Primary Care Physician Coty, Yocasta L Admitting Unavailable Coty, Yocasta L Attending Unavailable Coty, EFFICIENCY EXPERT Yocasta L Attending Unavailable Coty, EFFICIENCY EXPERT Yocasta L Attending Unavailable Coty, EFFICIENCY EXPERT Yocasta Ma Attending Unavailable Coty, EFFICIENCY EXPERT Yocasta L Admitting Unavailable Coty, EFFICIENCY EXPERT Yocasta L Attending Unavailable Coty, EFFICIENCY EXPERT Yocasta L Admitting Unavailable Coty, EFFICIENCY EXPERT Yocasta L Attending Unavailable OLGA LIDIA MARTINEZ Primary Care Unavailable DEVANG TREJO Attending Unavailable DEVANG TREJO Attending Unavailable DEVANG TREJO Referring Unavailable OLGA LIDIA MARTINEZ Primary Care Unavailable Brody Weston Attending Unavailable Brody Weston Attending Unavailable Coty, EFFICIENCY EXPERT Yocasta Jerry Referring Unavailable Coty, EFFICIENCY EXPERT Yocasta L Attending Unavailable Coty, EFFICIENCY EXPERT Yocasta L Admitting Unavailable Coty, EFFICIENCY EXPERT Yocasta L Attending Unavailable Coty, EFFICIENCY EXPERT Yocasta L Attending Unavailable Allergies Allergy Classification Reported Allergen(s) Allergy Type Date of Onset Reaction(s) Facility (1 source) desloratadine / Pseudoephedrine Drug Allergy 09-24-19 15 [facility] Repository (5 sources) predniSONE; Translations: [PREDNISONE] Drug Allergy 09-22-19 15 [facility] Repository (3 sources) Sertraline; Translations: [Zoloft] Drug Allergy 09-22-19 15 [facility] Repository (2 sources) Ciprofloxacin Drug Allergy Unknown [employer] Other (10 sources) Sertraline; Translations: [SERTRALINE] Drug Allergy 05-23-20 21 Palpitations, Unknown (qualifier value) [employer] Other (6 sources) predniSONE; Translations: [prednisone] Drug Allergy 05-23-20 21 Palpitations, Unknown (qualifier value) [facility] Medications Current Medications Medication Drug Class(es) Dates Sig (Normalized) Sig (Original) atenolol 25 mg oral tablet (8 sources) beta-Adrenergic Mark Start: 09-09-2023 take 1 tablet by mouth once daily atenolol 25 mg Tab 25 mg = 1 tab(s), Oral, Daily, # 90 tab(s), Refills(s) 1, Pharmacy: [facility]/pharmacy #[id number], 157.4, cm, 09/25/22 16:16:00 EDT, Height/Length Dosing, 93.3, kg, 09/25/22 16:16:00 EDT, Weight Dosing Start Date: 09/09/23 Status: Ordered take 1 tablet by mouth in the mo rning atenoloL (TENORMIN) 25 mg tablet Take 1 tablet (25 mg total) by mouth in the morning. Takes it in quarters . 0 Active Atenolol Active ciprofloxacin 500 mg oral tablet (1 source) Quinolone Antimicrobial Start: 01-16-2024 take 1 tablet by mouth once ciprofloxacin 500 mg Tab 500 mg = 1 tab(s), Oral, Once, # 1 tab(s), Refills(s) 0 Start Date: 01/16/24 Status: Ordered citalopram 40 mg oral tablet (8 sources) Serotonin Reuptake Inhibitor Start: 09-09-2023 take 1 tablet by mouth once daily citalopram 40 mg Tab 40 mg = 1 tab(s), Oral, Daily, # 90 tab(s), Refills(s) 1, Pharmacy: [id number], 157.4, cm, 09/25/22 16:16:00 EDT, Height/Length Dosing, 93.3, kg, 09/25/22 16:16:00 EDT, Weight Dosing Start Date: 09/09/23 Status: Ordered take 1 tablet by mouth in the mo rning citalopram (CeleXA) 40 mg tablet Take 1 tablet (40 mg total) by mouth in the morning. 0 Active CeleXA Active Fish Oils (4 sources) Start: 10-09-2023 Fish Oil Oral, BID, Refill(s) 0 Start Date: 10/09/23 Status: Ordered gabapentin 300 mg oral capsule (4 sources) Anti-epileptic Agent Start: 10-09-2023 take 1 capsule by mouth twice daily gabapentin 300 mg Cap 300 mg = 1 cap(s), Oral, BID, # 60 cap(s), Refills(s) 0, [id number] 157.4, cm, 10/09/23 10:28:00 EDT, Height/Length Dosing, 87.6, kg, 10/09/23 10:28:00 EDT, Weight Dosing Start Date: 10/09/23 Status: Ordered LORazepam 0.5 mg oral tablet (5 sources) Benzodiazepine Start: 09-17-2023 take 1 tablet by mouth every twelve hours as needed for anxiety Ativan 0.5 mg Tab 0.5 mg = 1 tab(s), Oral, q12hr, PRN anxiety, # 20 tab(s), Refills(s) 0, [id number] 157.4, cm, 09/17/23 10:18:00 EDT, Height/Length Dosing, 89.1, kg, 09/17/23 10:18:00 EDT, Weight Dosing Start Date: 09/17/23 Status: Ordered methylPREDNISolone 4 mg oral tablet (1 source) Corticosteroid Start: 12-10-2022 methylPREDNISolone 4 MG as directed Orally for daily dose take half with breakfast, half with dinner for 6 days Nov, Active naproxen 375 mg oral tablet (1 source) Nonsteroidal Anti-inflammatory Drug Start: 01-16-2024 take 1 tablet by mouth every twelve hours as needed for pain naproxen 375 mg Tab 1 tab(s), Oral, q12hr, PRN Pain, # 10, Refills(s) 0 Start Date: 01/16/24 Status: Ordered omeprazole 40 mg delayed release oral capsule (8 sources) Proton Pump Inhibitor Start: 09-11-2023 take 1 capsule by mouth once daily omeprazole 40 mg Cap-DR 40 mg = 1 cap(s), Oral, Daily, # 90 tab(s), Refills(s) 1, [id number] 157.4, cm, 09/25/22 16:16:00 EDT, Height/Length Dosing, 93.3, kg, 09/25/22 16:16:00 EDT, Weight Dosing Start Date: 09/11/23 Status: Ordered take 2 capsules by mouth in the morning omeprazole (PriLOSEC) 20 mg capsule Take 2 capsules (40 mg total) by mouth in the morning. 0 Active Omeprazole Activ e sulfamethoxazole 800 mg / trimethoprim 160 mg oral tablet (1 source) Dihydrofolate Reductase Inhibitor Antibacterial, Sulfonamide Antimicrobial Start: 01-16-2024 Bactrim D.S. 800 mg-160 mg Tab 1 tab(s), Oral, BID, 20 tab(s), Refill(s) 0, [facility]/pharmacy #[id number], 157, cm, 01/16/24 11:03:00 EDT, Height/Length Dosing, 88.8, kg, 01/16/24 11:03:00 EDT, Weight Dosing Start Date: 01/16/24 Status: Ordered Completed/Discontinued Medications Medication Drug Class(es) Dates Sig (Normalized) Sig (Original) [id number] 200 actuat albuterol 0.09 mg/actuat metered dose [...] Problem Classification Problem Date Documented Date Episodic/Chronic Abdominal pain (2 sources) Flank pain Onset: 01-14-2024 Episodic Adjustment disorders (5 sources) Adjustment disorder with depressed mood 09-23-2022 Chronic Anxiety disorders (5 sources) Anxiety disorder 09-23-2022 Chronic Calculus of urinary tract (1 source) Calculus of kidney; Translations: [Calculus of kidney] Onset: 01-14-2024 Episodic Cardiac dysrhythmias (9 sources) Supraventricular tachycardia; Translations: [Supraventricular tachycardia] Onset: 01-01-2019 09-23-2022 Chronic Chronic obstructive pulmonary disease and bronchiectasis (1 source) Bronchitis, not specified as acute or chronic Episodic Coagulation and hemorrhagic disorders (3 sources) Thrombocytopenic disorder 10-10-2023 Chronic Immunizations and screening for infectious disease (1 source) Contact with and (suspected) exposure to other viral communicable diseases Episodic Malaise and fatigue (5 sources) Fatigue 09-17-2023 Episodic Other endocrine disorders (1 source) Polycystic ovary syndrome; Translations: [Polycystic ovarian syndrome] Onset: 06-18-2022 06-18-2022 Chronic Other non-traumatic joint disorders (5 sources) Pain in elbow 09-17-2023 Episodic Other nutritional; endocrine; and metabolic disorders (1 source) Obese class II; Translations: [Obesity, unspecified] Onset: 06-18-2022 06-18-2022 Chronic Other screening for suspected conditions (not mental disorders or infectious disease) (4 sources) Platelet count below reference range 10-09-2023 Episodic Poisoning by nonmedicinal substances (1 source) Bee sting 12-23-2023 Episodic Residual codes; unclassified (7 sources) Family history of breast cancer; Translations: [...] (1 source) Gynecologic Exam Onset: 07-17-2023 Unclassified (5 sources) Pain of left shoulder region 09-17-2023 Unclassified (10 sources) Patient encounter status 09-17-2023 Past or [...] Test Name Value Interpretation Reference Range Facility Provider Letteron 01-30-2024 Provider Letter Provider Letter January 30, 2024 NICOLE CARTER [address] [place] [address] : 1990 To Whom It May Concern, Please excuse above patient from work due to daughter being off school today Friday01-30-24 illness. Date of Illness: From: _ To: _ May Return to Work On:02-02-24 Restrictions: _ Comments: _ Sincerely, Family Medicine [address] [address] [facility] C Urineon 01-18-2024 Bacteria identified Cx Nom (U) Microbiology PROCEDURE: Urine Culture [R1] SOURCE: U CleanCatch BODY SITE: COLLECTED DATE/TIME: 01/16/2024 12:07 EDT RECEIVED DATE/TIME: 01/16/2024 17:45 EDT START DATE/TIME: 01/16/2024 17:45 EDT FREE TEXT SOURCE: Yocasta Vidal Jodi L FINAL REPORTS Final Report [] Verified Date/Time: 01/18/2024 09:42 EDT 300 cfu/ml Mixed skin contaminants Performing Locations R1: This test was performed at: [facility], [address] [place] [address], [address]- , [place], Normal [facility] Comment on above: Performed By: #### [id number] #### [facility] [address] [place] [address] Ambulatory Visit Summaryon 0 01-16-2024 Ambulatory Visit Summary Ambulatory Visit Summary NICOLE CARTER :1990 Visit Date:01/16/2024 Ambulatory Visit Instructions Your Care Team Attending Physician - Yocasta Vidal Primary Care Physician - Yocasta Vidal This Is Your Medications List atenolol (atenolol 25 mg Tab) ciprofloxacin (ciprofloxacin 500 mg Tab) citalopram (citalopram 40 mg Tab) gabapentin (gabapentin 300 mg Cap) lorazepam (Ativan 0.5 mg Tab) naproxen (naproxen 375 mg Tab) omega-3 polyunsaturated fatty acids (Fish Oil) omeprazole (omeprazole 40 mg Cap-DR) Procedures Performed Gallbladder, Scoliosis. Discharge Vitals Temperature (Oral) 36.7 ?C Heart Rate (Peripheral) 104 Respiratory Rate 18 Blood Pressure 124/84 Height 157.0 cm Height 62 in Weight 88.8 kg Weight 195.36 lb BMI 36.03 What to do next Scheduled Follow-Up Appointments 2024 11:00 AM EST With: Brody Weston DO Where: [facility] Medications What How Much When Instructions Unchanged atenolol (atenolol 25 mg Tab) 1 Tablets By Mouth Every day Unchanged ciprofloxacin (ciprofloxacin 500 mg Tab) 1 Tablets By Mouth Once Unchanged citalopram (citalopram 40 mg Tab) 1 Tablets By Mouth Every day Unchanged gabapentin (gabapentin 300 mg Cap) 1 Capsules By Mouth 2 times a day Unchanged lorazepam (Ativan 0.5 mg Tab) 1 Tablets By Mouth Every 12 hours as needed for anxiety Unchanged naproxen (naproxen 375 mg Tab) 1 By Mouth Every 12 hours as needed for Pain Unchanged omega-3 polyunsaturated fatty acids (Fish Oil) By Mouth 2 times a day Unchanged omeprazole (omeprazole 40 mg Cap-DR) 1 Capsules By Mouth Every day Allergies Zoloft (Unknown) predniSONE (Unknown) Problems Ongoing - Any problem that you are currently receiving treatment for. Adjustment disorder with depressed mood Anxiety disorder Bee sting reaction Breast cancer screening by mammogram Family history of breast cancer Fatigue Left shoulder pain Low platelet count Right elbow pain SVT (supraventricular tachycardia) Thrombocytopenia Wellness examination Patient Survey You may receive a survey via text or e-mail asking about your office visit. Please share your experience with us by completing your survey. We appreciate your feedback and thank you for choosing us for your care. [facility] Family Medicine Office/Clini c Noteon 01-16-2024 Family Medicine Office/Clinic Note Family Medicine Office/Clinic Note HPI Staff Pt presents today for [facility] ER f/u and [facility] Hospital: [facility] ( has report) Visit date: 01/13 Symptoms the patient presented with: urinary retention, and nausea and vomiting Current concerns: ER followup: Hospital: [facility] (called for report 01/14) Visit date: 01/13 Symptoms the patient presented with: diagnosed with kidney stones Current concerns: She has a hard time taking Cipro she gets nausea still taking it though Onset: 8-15 Symptoms: frequency, color was dark yellow OTC used: Azo Last UTI: 3-4 years Hx of kidney stones: currently have and when she was 17 UA in office documented in chart History of Present Illness pt presents today with continue UTI symptoms Review of Systems PHQ Score Initial Depression Screen Score: 0 SCORE Physical Exam Vitals & Measurements T: 36.7 ?C(Oral) HR: 104(Peripheral) RR: 18 BP: 124/84 SpO2: 97% HT: 62 in HT: 157.0 cm WT: 88.8 kg WT: 195.36 lb BMI: 36.03 General: alert, no acute distress ENMT: oral mucosa moist, no pharyngeal erythema or exudate Cardiovascular: regular rate and rhythm, normal peripheral perfusion Respiratory: Lungs CTA, respirations non labored Extremities: no deformity, no trauma Neurological: oriented x 4, LOC appropriate for age, CN II-XII intact, motor strength equal & normal bilaterally, speech normal Assessment/Plan 1. UTI symptoms (R39.9: Unspecified symptoms and signs involving the genitourinary system) pt presents today with continued UTI symptoms. is not able to keep the cipro down that the ER sent in for her. will send bactrim in. will send urine for culture. it is positive for leuks and nitrites and blood. RTC as needed Ordered: Urine Culture Urnls Dip Stick Auto w/o Microscopy POC 16259 2. Former smoker (Z87.891: Personal history of nicotine dependence) continue not smoking Ordered: Urine Culture Urnls Dip Stick Auto w/o Microscopy POC 35574 3. BMI 36.0-36.9,adult (Z68.36: Body mass index [BMI] 36.0-36.9, adult) BMI education given Ordered: Urine Culture Urnls Dip Stick Auto w/o Microscopy POC 23244 4. Class 1 obesity due to excess calories in adult (E66.09: Other obesity due to excess calories) see above Ordered: Urine Culture Urnls Dip Stick Auto w/o Microscopy POC 60407 Orders: sulfamethoxazole-tri methoprim, 1 tab(s), Oral, BID, 20 tab(s), Refill(s) 0, [id number], 157, cm, 01/16/24 11:03:00 EDT, Height/Length Dosing, 88.8, kg, 01/16/24 11:03:00 EDT, Weight Dosing Follow-up No qualifying data available Problem List/Past Medical History Ongoing Adjustment disorder with depressed mood Anxiety disorder Bee sting reaction Breast cancer screening by mammogram Family history of breast cancer Fatigue Left shoulder pain Low platelet count Right elbow pain SVT (supraventricular tachycardia) Thrombocytopenia Wellness examination Historical No qualifying data Procedure/Surgical History Gallbladder, Scoliosis. Medications atenolol 25 mg Tab, 25 mg= 1 tab(s), Oral, Daily, 1 refills Ativan 0.5 mg Tab, 0.5 mg= 1 tab(s), Oral, q12hr, PRN Bactrim D.S. 800 mg-160 mg Tab, 1 tab(s), Oral, BID ciprofloxacin 500 mg Tab, 500 mg= 1 tab(s), Oral, Once citalopram 40 mg Tab, 40 mg= 1 tab(s), Oral, Daily, 1 refills Fish Oil, Oral, BID gabapentin 300 mg Cap, 300 mg= 1 cap(s), Oral, BID naproxen 375 mg Tab, Oral, q12hr, PRN omeprazole 40 mg Cap-DR, 40 mg= 1 cap(s), Oral, Daily, 1 refills Allergies Zoloft (Unknown) predniSONE (Unknown) Social History Alcohol - Denies Alcohol Use, 09/23/2022 Substance Abuse - Denies Substance Abuse, 09/23/2022 Tobacco Former smoker, quit more than 30 days ago, quit 5 years ago Tobacco Use:. Never Smokeless Tobacco Use:. Cigarettes, 01/16/2024 Family History Primary malignant neoplasm of female breast: Mother. Lab Results Ambulatory Point of Care Results Bilirubin Urine Dipstick: Negative (01/16/24 12:03:00) Blood Urine Dipstick: 1+ Small (01/16/24 12:03:00) Glucose Urine Dipstick: Negative (01/16/24 12:03:00) Ketones Urine Dipstick: Negative (01/16/24 12:03:00) Leukocytes Urine Dipstick: 1+ Small (01/16/24 12:03:00) Nitrite Urine Dipstick: Positive (01/16/24 12:03:00) Protein Urine Dipstick: 1+ (30 mg/dl) (01/16/24 12:03:00) Specific [place] Urine Dipstick: 1.010 (01/16/24 12:03:00) Urine Appearance Urine Dipstick: Clear (01/16/24 12:03:00) Urine Color Urine Dipstick: Light yellow (01/16/24 12:03:00) Urobilinogen Urine Dipstick: Normal 0.2-1 EU/dl (01/16/24 12:03:00) pH Urine Dipstick: 7 (01/16/24 12:03:00) Normal [facility] Comment on above: Result Comment: Elec tronically Signed By: Yocasta Vidal.br\Date and Time Signed: 01/16/24 12:27 EDT Provider Letteron 01-16-2024 Provider Letter Provider Letter January 16, [address] [address] : 1990 To Whom It May Concern, Please excuse above patient from work due to medical Date of Illness: From: _ Sunday January 14, 2024 To: _ Thursday January 18, 2024 May Return to Work On:Friday January 19, 2024 Restrictions: _ Comments: _ Sincerely, [address] [address] Normal [facility] BASIC METABOLIC PANLon 01-13 Anion gap [Moles/Vol] 8 mmol/L Normal 5-15 [facility] Comment on above: Performed By: #### B ANISH CBCA #### [facility] ([id number]) [address] [place] [address] Calcium [Mass/Vol] 9.1 mg/dL Normal 8.5-10.5 [facility] Comment on above: Performed By: #### B ANISH CBCA #### [facility] ([id number]) [address] [place] [address] Chloride [Moles/Vol] 105 mmol/L Normal 98-109 [facility] Comment on above: Performed By: #### B ANISH, CBCA #### [facility] ([id number]) [address] [place] [address] CO2 [Moles/Vol] 26 mmol/L Normal 22-32 [facility] Comment on above: Performed By: #### B ANISH CBCA #### [facility] ([id number]) [address] [place] [address] Creatinine [Mass/Vol] 0.68 mg/dL Normal 0.40-1.00 [facility] Comment on above: Result Comment: METH OD TRACEABLE TO IDMS STANDARD Performed By: #### B ANISH CBCA #### [facility] ([id number]) [address] [place] [address] eGFR (CKD-EPI) NON-RACE DEPENDENT >90 Normal >59 [facility] Comment on above: Result Comment: Reported eGFR is based on the CKD-EPI 2020 equation that does not use a race coefficient. Performed By: #### B ANISH CBCA #### [facility] ([id number]) [address] [place] [address] Glucose [Mass/Vol] 106 mg/dL High 65-99 [facility] Comment on above: Performed By: #### B ANISH CBCA #### [facility] ([id number]) [address] [place] [address] Potassium [Moles/Vol] 3.4 mmol/L Low 3.5-5.0 [facility] Comment on above: Performed By: #### B ANISH CBCA #### [facility] ([id number]) [address] [place] [address] Sodium [Moles/Vol] 139 mmol/L Normal 134-146 [facility] Comment on above: Performed By: #### B ANISH CBCA #### [facility] ([id number]) [address] [place] [address] Urea nitrogen [Mass/Vol] 13 mg/dL Normal 5-23 [facility] Comment on above: Performed By: #### B ANISH CBCA #### [facility] ([id number]) [address] [place] [address] CBC AND AUTO DIFFon -- 24 ABSOLUTE BASOPHIL 0.1 X10E9/L Normal 0.0-0.2 [facility] Comment on above: Performed By: #### B ANISH CBCA #### [facility] ([id number]) [address] [place] [address]98 ABSOLUTE NEUTROPHIL 5.4 X10E9/L Normal 1.5-6.6 [facility] Comment on above: Performed By: #### B MP, CBCA #### [facility] ([id number]) [address] [place] [address] Basophils/100 WBC (Bld) 1.1 % Normal [facility] Comment on above: Performed By: #### B MP, CBCA #### [facility] ([id number]) [address] [place] [address]79 Eosinophils (Bld) [#/Vol] 0.4 10*3/uL Normal 0.0-0.4 [facility] Comment on above: Performed By: #### B MP, CBCA #### [facility] ([id number]) [address] [place] [address] 269[address] Eosinophils/100 WBC (Bld) 4.4 % Normal [facility] Comment on above: Performed By: #### B MP, CBCA #### [facility] ([id number]) [address] [place] [address] Erythrocyte distribution width (RBC) [Ratio] 14.0 % Normal 11.5-15.0 [facility] Comment on above: Performed By: #### B MP, CBCA #### [facility] ([id number]) [address] [place] [address]908 Hematocrit (Bld) [Volume fraction] 36.9 % Normal 35-47 [facility] Comment on above: Performed By: #### B MP, CBCA #### [facility] ([id number]) [address] [place] [address] 35666 Hemoglobin (Bld) [Mass/Vol] 12.5 g/dL Normal 11.7-15.5 [facility] Comment on above: Performed By: #### B MP, CBCA #### [facility] ([id number]) [address] [place] [address] [place] [address] Lymphocytes (Bld) [#/Vol] 2.5 10*3/uL Normal 1.0-3.5 [facility] Comment on above: Performed By: #### B MP, CBCA #### [facility] ([id number]) [address] [place] [address]1112 Lymphocytes/100 WBC (Bld) 28.0 % Normal [facility] Comment on above: Performed By: #### B MP, CBCA #### [facility] ([id number]) [address] [place] [address] 21049 MCH (RBC) [Entitic mass] 30.4 pg Normal 27-34 [facility] Comment on above: Performed By: #### B ANISH, CBCA #### [facility] ([id number]) [address] [place] [address]45 MCHC (RBC) [Mass/Vol] 33.8 g/dL Normal 32-36 [facility] Comment on above: Performed By: #### B ANISH, CBCA #### [facility] ([id number]) [address] [place] [address]36 MCV (RBC) [Entitic vol] 90 fL Normal 80-100 [facility] Comment on above: Performed By: #### B ANISH, CBCA #### [facility] ([id number]) [address] [place] [address]71 Monocytes (Bld) [#/Vol] 0.5 10*3/uL Normal 0-0.9 [facility] Comment on above: Performed By: #### B MP, CBCA #### [facility] ([id number]) [address] [place] [address]200 Monocytes/100 WBC (Bld) 5.3 % Normal [facility] Comment on above: Performed By: #### B MP, CBCA #### [facility] ([id number]) [address] [place] [address]3073 Neutrophils/100 WBC (Bld) 61.2 % Normal [facility] Comment on above: Performed By: #### B MP, CBCA #### [facility] ([id number]) [address] [place] [address] 72782 Platelet mean volume (Bld) [Entitic vol] 9.8 fL Normal 7-12 [facility] Comment on above: Performed By: #### B MP, CBCA #### [facility] ([id number]) [address] [place] [address] 71628 Platelets (Bld) [#/Vol] 82 10*3/uL Low 150-450 [facility] Comment on above: Performed By: #### B ANISH, CBCA #### [facility] ([id number]) [address] [place] [address] 69820 RBC COUNT 4.10 X10E12/L Normal 3.80-5.20 [facility] Comment on above: Performed By: #### B ANISH, CBCA #### [facility] ([id number]) [address] [place] [address]2840 WBC (Bld) [#/Vol] 8.9 10*3/uL Normal 4.0-11.0 [facility] Comment on above: Performed By: #### B MP, CBCA #### [facility] ([id number]) [address] [place] [address] ABDOMEN AND PELVIS WO CON Ton 01-14-2024 CT ABDOMEN AND PELVIS WO CONT CT ABDOMEN AND PELVIS WO CONT CLINICAL INFORMATION: Abdominal/flank pain, stone suspected. Pain radiating to the back TECHNIQUE: CT Abdomen and Pelvis without intravenous contrast. All CT scans at this facility use dose modulation, iterative reconstruction, and/or weight based dosing when appropriate to reduce radiation dose to as low as reasonably achievable. COMPARISON: No relevant prior studies available. FINDINGS: Assessment is compromised by streak artifact from the thoracolumbar spinal fusion hardware. There is no pleural or pericardial effusion at the lung bases. There is no lower lung consolidation seen. Noncontrast assessment of the liver, adrenal glands, pancreas and spleen appear grossly unremarkable. The gallbladder is absent. The small bowel is nondilated the appendix is unremarkable. No enlarged mesenteric or retroperitoneal lymph nodes. There is no renal collecting system dilatation. There is a proximal left 2 mm ureteral calculus. No right renal collecting system dilatation. No free pelvic fluid. No enlarged pelvic lymph nodes. Urinary bladder is grossly unremarkable. IMPRESSION: * Proximal left ureteral calculus measuring 2 mm without significant upstream collecting system dilatation. Finalized by Klaus Us MD on 01/14/2024 8:23 AM Normal [facility] HCG ( test) Ql (U)o n 01-14-2024 Beta HCG ( test) Ql (U) Negative Normal NEG [facility] Comment on above: Performed By: #### 2 106-3 #### [facility] ([id number]) [address] [place] [address] UA (MICROSCOPIC)on 4 CA OXALATE CRYSTALS PRESENT Abnormal NONE [facility] Comment on above: Performed By: #### U VY #### [facility] ([id number]) [address] [place] [address] R.B.CELLS >100 High 0-5 [facility] Comment on above: Performed By: #### U VY #### [facility] ([id number]) [address] [place] [address] SQUAMOUS EPITHELIUM PRESENT Normal 0-5 [facility] Comment on above: Performed By: #### U VY #### [facility] ([id number]) [address] [place] [address] Urinalysis dipstick W Reflex Microscopic panel (U) Results maybe affected due to High RBC count, interpretwith caution. Normal [facility] Comment on above: Performed By: #### U VY #### [facility] ([id number]) [address] [facility] [place] [place] [address] W.B.CELLS PRESENT Normal 0-5 [facility] Comment on above: Performed By: #### U VY #### [facility] ([id number]) [address] [place] [address], [place] [address] Family Medicine Office/Clini c Noteon 12-23-2023 Family Medicine Office/Clinic Note Family Medicine Office/Clinic Note HPI Staff Nicole is a 33 year old female presenting with Onset: Bee sting Location: ring finger Duration: stung the Characteristics:_ swollen, tingly, radiates up her arm Aggravated by: when she closes her hand it hurts Relieved by: ice, Tylenol and itch cream, did not seem to help Timing:_ Associated Symptoms:_ Last night stated swelling started she did get the stinger out History of Present Illness pt presents today for bee sting reaction to right ring finger Review of Systems PHQ Score Initial Depression Screen Score: 0 SCORE Physical Exam Vitals & Measurements T: 36.5 ?C(Temporal Artery) HR: 80(Peripheral) RR: 18 BP: 128/84 SpO2: 97% HT: 62 in HT: 157.0 cm WT: 88.45 kg WT: 194.59 lb BMI: 35.88 General: alert, no acute distress ENMT: oral mucosa moist, no pharyngeal erythema or exudate Cardiovascular: regular rate and rhythm, normal peripheral perfusion Respiratory: Lungs CTA, respirations non labored Extremities: no deformity, no trauma Neurological: oriented x 4, LOC appropriate for age, CN II-XII intact, motor strength equal & normal bilaterally, speech normal right ring finger is red and swollen Assessment/Plan 1. Bee sting reaction (T63.441A: Toxic effect of venom of bees, accidental (unintentional), initial encounter) right ring finger stung by a bee 2 days ago. pt states it is now burning and tingling and was unable to go to work because she is unable to write due to the pain. work excuse provided. pt instructed to take zyrtec daily and benadryl at night. medrol dose pack sent to pharmacy 2. Former smoker (Z87.891: Personal history of nicotine dependence) continue not smoking Ordered: methylPREDNISolone, = 1 packet(s), Oral, As Directed, as directed on package labeling, X 6 day(s), # 21 tab(s), Refills(s) 0, Pharmacy: [facility]/pharmacy #[id number], 157, cm, 12/23/23 10:52:00 EDT, Height/Length Dosing, 88.5, kg, 12/23/23 10:52:00 EDT, Weight Dosing 3. BMI 35.0-35.9,adult (Z68.35: Body mass index [BMI] 35.0-35.9, adult) bmi education given Ordered: methylPREDNISolone, = 1 packet(s), Oral, As Directed, as directed on package labeling, X 6 day(s), # 21 tab(s), Refills(s) 0, [id number] 157, cm, 12/23/23 10:52:00 EDT, Height/Length Dosing, 88.5, kg, 12/23/23 10:52:00 EDT, Weight Dosing Follow-up No qualifying data available Problem List/Past Medical History Ongoing Adjustment disorder with depressed mood Anxiety disorder Bee sting reaction Breast cancer screening by mammogram Family history of breast cancer Fatigue Left shoulder pain Low platelet count Right elbow pain SVT (supraventricular tachycardia) Thrombocytopenia Wellness examination Historical No qualifying data Procedure/Surgical History Gallbladder, Scoliosis. Medications atenolol 25 mg Tab, 25 mg= 1 tab(s), Oral, Daily, 1 refills Ativan 0.5 mg Tab, 0.5 mg= 1 tab(s), Oral, q12hr, PRN citalopram 40 mg Tab, 40 mg= 1 tab(s), Oral, Daily, 1 refills Fish Oil, Oral, BID gabapentin 300 mg Cap, 300 mg= 1 cap(s), Oral, BID Medrol 4 mg Tab, 1 packet(s), Oral, As Directed omeprazole 40 mg Cap-DR, 40 mg= 1 cap(s), Oral, Daily, 1 refills Allergies Zoloft (Unknown) predniSONE (Unknown) Social History Alcohol - Denies Alcohol Use, 09/23/2022 Substance Abuse - Denies Substance Abuse, 09/23/2022 Tobacco Former smoker, quit more than 30 days ago, quit 5 years ago Tobacco Use:. Never Smokeless Tobacco Use:. Cigarettes, 12/23/2023 Family History Primary malignant neoplasm of female breast: Mother. Normal [facility] Comment on above: Result Comment: Elec tronically Signed By: Yocasta Vidal\Date and Time Signed: 12/23/23 11:08 EDT Provider Letteron 12-23-2023 Provider Letter Provider Letter December 23, 2023 NICOLEMAR MURILLOCARTER [address] [place] [id number] : 1990 To Whom It May Concern, Please excuse above patient from work. Date of Illness: 12/23/2023 May Return to Work On: 12/24/2023 Sincerely, [address] [address] Normal [facility] Laboratory Outside Office Co pyon 10-30-2023 Laboratory Outside Office Copy [id number]# 1.00TIFF Normal [facility] Laboratory Outside Office Copy [id number] #1.00TIFF Normal [facility] Outside Radiologyon 10-29-19 Outside Radiology [id number] 8#1.00TIFF Normal [facility] Physician Orderon 10-29-2023 Physician Order [id number] 9#1.00TIFF Normal [facility] RAD - Ultrasound Reporton RAD - Ultrasound Report [id number] #1.00TIFF Normal [facility] RAD - MISCon 10-21-2023 RAD - MISC [id number] #1.00TIFF Normal [facility] Oncology Progress Noteon Oncology Progress Note Chief Complaint New patient Thrombocytopenia; no concerns Diagnoses Thrombocytopenia (D69.6: Thrombocytopenia, unspecified) Thrombocytosis (D75.839: Thrombocytosis, unspecified) Oncological History/ROS/PE/Asses sment and Plan HPI 33-year-old female referred for thrombocytopenia by her primary care provider Yocasta [facility]ari [facility]. Medical history includes depression, anxiety, hypertension, reflux. Outpatient medications include atenolol, gabapentin, Celexa, Prilosec, albuterol as needed. 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 Review of CBC from September 17, [...] [facility] [address] [place] [address] [phone] Fax Business (1) Additional Instructions: weekly cbc, [...] % 10/09/23 Lymph Auto 34.4 % 09/17/23 Sharp Auto 4.6 % 10/09/23 Sharp Auto 4.6 % 09/17/23 Eos Auto 4.6 % 10/09/23 Eos Auto 3.7 % 09/17/23 Basophil Auto 0.7 % 10/09/23 Basophil Auto 0.6 % 09/17/23 Neutro Absolute 3.1 E9/L 10/09/23 Neutro Absolute 4.7 E9/L 09/17/23 Lymph Absolute 2 E9/L 10/09/23 Lymph Absolute 2.9 E9/L 09/17/23 Sharp Absolute 0.3 E9/L 10/09/23 Sharp Absolute 0.4 E9/L 09/17/23 Eos Absolute 0.3 [...] Bili Total (more content not included)... Normal [facility] Outside Labson 10-17-2023 Outside Labs [id number] 4#1.00TIFF Normal [facility] Consent for Treatmenton 09-24 Consent for Treatment [id number] #1.00TIFF Normal [facility] 10-16-[address] [facility] Oncology Bone Marrow Aspiration and Bone Marrow [...] including vitamins, herbs, eye drops, creams, and jvgs-ekk-cfygxum medicines. ? Any problems you or family [...] tells you to take them. ? Taking ntlm-iqu-gwppyxc medicines, vitamins, herbs, and supplements. General instructions [...] procedure, te (more content not included)... Normal [facility] HIPAA Forms Officeon 024 HIPAA Forms Office [id number]# 1.00TIFF Normal [facility] Outside Labson 10-16-2023 Outside Labs [id number] 9#1.00TIFF Normal [facility] Physician Orderon 10-16-2023 Physician Order [id number] 80#1.00TIFF [facility] Physician Orderon 10-15-2023 Physician Order [id number] 8#1.00TIFF [facility] Path. Reviewon 10-10-2023 Path Review Peripheral Blood Smear: Invalid Interpretation Code [facility] Comment on above: Order Comment: Order added by Discern Expert Performed By: #### 1 [id number] ####[facility] [address] [place] [address] Path. Review Peripheral Blood Smear: - RBCs: Normochromic and normocytic - WBCs: Within normal limits - Platelet: Decreased Invalid Interpretation Code [facility] Comment on above: Other Comment: Order [...] Mouth 2 times a day Pickup at [facility]/pharmacy #[id number] Unchanged atenolol (atenolol 25 mg Tab) 1 [...] Capsules By Mouth Every day Pharmacy Information [facility]/pharmacy #[id number]: [address] [place], [place] [phone] Allergies Zoloft (Unknown) predniSONE (Unknown) Problems Ongoing [...] for choosing us for your care. Normal [facility] CBC w/ Auto Diffon 4 Basophils/100 WBC (Bld) 0.7 % Normal 0.0-2.0 [facility] Comment on above: Performed By: #### 2 [id number] #### [facility] Laboratory [address] [place] [address] Basophils/Leukocytes Auto (Bld) [Pure # fraction] 0.0 E9/L Normal 0.0-0.2 [facility] Comment on above: Performed By: #### 2 773575 #### [facility] [address] [place] [address] Eosinophils (Bld) [#/Vol] 0.3 E9/L Normal 0.0-0.5 [facility] Comment on above: Performed By: #### 2 033454 #### [facility] [address] [place] [address] Eosinophils/100 WBC (Bld) 4.6 % Normal 0.0-8.0 [facility] Comment on above: Performed By: #### 2 231745 #### [facility] [address] [place] [address] Erythrocyte distribution width (RBC) [Ratio] 13.6 % Normal 10.9-14.2 [facility] Comment on above: Performed By: #### 2 707295 #### [facility] [address] [place] [address] Hematocrit (Bld) [Volume fraction] 39.5 % Normal 34.0-46.0 [facility] Comment on above: Performed By: #### 2 623655 #### [facility] [address] [place] [address] Hemoglobin (Bld) [Mass/Vol] 13.4 g/dL Normal 12.0-16.0 [facility] Comment on above: Performed By: #### 2 051145 #### [facility] [address] [place] [address] Lymphocytes (Bld) [#/Vol] 2.0 E9/L Normal 1.0-4.0 [facility] Comment on above: Performed By: #### 2 189073 #### [facility] [address] [place] [address] Lymphocytes/100 WBC (Bld) 35.9 % Normal 14.0-50.0 [facility] Comment on above: Performed By: #### 2 254163 #### [facility] [address] [place] [address] MCH (RBC) [Entitic mass] 30.9 pg Normal 27.0-34.0 [facility] Comment on above: Performed By: #### 2 739429 #### [facility] [address] [place] [address] MCHC (RBC) [Mass/Vol] 34.0 g/dL Normal 31.4-36.0 [facility] Comment on above: Performed By: #### 2 700730 #### [facility] [address] [place] [address] MCV (RBC) [Entitic vol] 90.9 fL Normal 80.0-100.0 [facility] Comment on above: Performed By: #### 2 875236 #### [facility] [address] [place] [address] Monocytes (Bld) [#/Vol] 0.3 E9/L Normal 0.2-1.0 [facility] Comment on above: Performed By: #### 2 489794 #### [facility] [address] [place] [address] Neutrophils (Bld) [#/Vol] 3.1 E9/L Normal 2.0-7.5 [facility] Comment on above: Performed By: #### 2 344348 #### [facility] [address] [place] [address] Neutrophils/100 WBC (Bld) 54.2 % Normal 36.0-75.0 [facility] Comment on above: Performed By: #### 2 541715 #### [facility] [address] [place] [address] Platelet mean volume (Bld) [Entitic vol] 10.1 fL Normal 6.4-10.8 [facility] Comment on above: Performed By: #### 2 157828 #### [facility] [address] [place] [address] Platelets (Bld) [#/Vol] 33.0 E9/L Abnormal 150.0-500.0 [facility] Comment on above: Result Comment: Resu lts called to DR. MICHELLE by [id number] and read back on 10/09/2023 19:59:47. Performed By: #### 2 [id number] #### [facility] [address] [place] [address] RBC (Bld) [#/Vol] 4.3 E12/L Normal 4.3-5.9 [facility] Comment on above: Performed By: #### 2 854762 #### [facility] [address] [place] [address] RBC size Nom (Bld) NORMAL Invalid Interpretation Code [facility] Comment on above: Performed By: #### 2 601561 #### [facility] [address] [place] [address] WBC corrected for nucl RBC Auto (Bld) [#/Vol] 5.7 E9/L Normal 4.0-11.0 [facility] Comment on above: Performed By: #### 2 842336 #### [facility] [address] [place] [address] CHEMISTRYOrdered By: SYSTEM SYSTEM on 10-09-2023 Iron [...] first if no relief will refer to [facility] pain management for possible injection. 3. [...] bedtime), # 30 cap(s), Refills(s) 0, Pharmacy: [facility]/pharmacy #[id number], 157.4, cm, 09/17/23 10:18:00 EDT, Height/Length Dosing, 89.1, kg, 09/17/23 10:18:00 EDT, Weight Dosing gabapentin, 300 mg = 1 cap(s), Oral, BID, # 60 cap(s), Refills(s) 0, Pharmacy: [facility]/pharmacy #[id number], 157.4, cm, 10/09/23 10:28:00 EDT, [...] malignant neoplasm of female breast: Mother. Normal [facility] Comment on above: Result Comment: Elec tronically Signed By: Yocasta Vidal\.br\Date and Time Signed: 10/09/23 10:52 EDT HEMATOLOGYOrdered [...] Resu lts called to DR. MICHELLE by [id number] and read back on 10/09/2023 19:59:47. RBC (Bld) [#/Vol] 4.3 E12/L Normal 4.3 - 5.9 E12/L Remisol Heme RBC size Nom (Bld) NORMAL *NA* (10/09/23 10:59 AM) Invalid Interpretation Code Remisol Heme WBC corrected for nucl RBC Auto (Bld) [#/Vol] 5.7 E9/L Normal 4.0 - 11.0 E9/L Remisol Heme Ironon 10-09-2023 Iron [Mass/Vol] 86 microgram/dL Normal 35-153 [facility] Comment on above: Performed By: #### 2 381109 #### [facility] [address] [place] [address] TIBC Calculatedon 10-09-2023 Iron binding capacity [Mass/Vol] 357 microgram/dL Normal 250-400 [facility] Comment on above: Performed By: #### 1 9252589 #### [facility] [address] [place] [address] Transferrin [Mass/Vol] 255 mg/dL Normal 200-370 [facility] Comment on above: Performed By: #### 1 [id number] #### [facility] [address] [facility] [place] [address] Outside Mammographyon 2023 Outside Mammography [id number] #1.00TIFF Normal [facility] RAD - MISCon 09-24-2023 RAD - MISC [id number] #1.00TIFF Normal [facility] Reminderson 09-18-2023 Reminders - From: Yocasta [...] 34.4 % (14.0 - 50.0) 09/17/2023 10:41 Sharp Auto 4.6 % (4.0 - 14.0) 09/17/2023 10:41 Eos Auto 3.7 % (0.0 - 8.0) 09/17/2023 10:41 Basophil Auto 0.6 % (0.0 - 2.0) 09/17/2023 10:41 Neutro Absolute 4.7 E9/L (2.0 - 7.5) 09/17/2023 10:41 Lymph Absolute 2.9 E9/L (1.0 - 4.0) 09/17/2023 10:41 Sharp Absolute 0.4 E9/L (0.2 - 1.0) 09/17/2023 [...] 5.60) Patient informed and voices understanding. Normal [facility] Ambulatory Visit Summaryon 0 09-17-2023 Ambulatory [...] 10:20 AM EDT With: Yocasta Vidal Where: [facility] [place] Normal [facility] CBC w/ Auto Diffon 4 Basophils/100 WBC (Bld) 0.6 % Normal 0.0-2.0 [facility] Comment on above: Performed By: #### 1 7981679, 5213786, 1716606, 6102889, 0912412 ####[address] [place] [address] Basophils/Leukocytes Auto (Bld) [Pure # fraction] 0.1 E9/L Normal 0.0-0.2 [facility] Comment on above: Performed By: #### 1 3804682, 4389285, 2642630, 6936506, 6254924 ####[facility] [address] [place] [address] Eosinophils (Bld) [#/Vol] 0.3 E9/L Normal 0.0-0.5 [facility] Comment on above: Performed By: #### 1 9471167, 4994559, 9412950, 7833723, 9580055 ####[address] [address] Eosinophils/100 WBC (Bld) 3.7 % Normal 0.0-8.0 [facility] Comment on above: Performed By: #### 1 9772482, 1184780, 6123363, 3327598, 7085455 ####[facility] [address] [place] [address] Erythrocyte distribution width (RBC) [Ratio] 13.8 % Normal 10.9-14.2 [facility] Comment on above: Performed By: #### 1 7288770, 9111493, 2673768, 2624245, 3729240 ####[address] [address] Hematocrit (Bld) [Volume fraction] 40.9 % Normal 34.0-46.0 [facility] Comment on above: Performed By: #### 1 7995755, 8332044, 2672856, 9657997, 1129469 ####[facility] [address] [place] [address] Hemoglobin (Bld) [Mass/Vol] 13.6 g/dL Normal 12.0-16.0 [facility] Comment on above: Performed By: #### 1 4459442, 3277328, 9126862, 2874480, 8483426 ####[address] [place] [address] Lymphocytes (Bld) [#/Vol] 2.9 E9/L Normal 1.0-4.0 [facility] Comment on above: Performed By: #### 1 1561857, 9736571, 3739309, 8120330, 3639842 ####[address] [address] Lymphocytes/100 WBC (Bld) 34.4 % Normal 14.0-50.0 [facility] Comment on above: Performed By: #### 1 2835834, 4723364, 2559034, 1107148, 2591490 ####[address] [address] MCH (RBC) [Entitic mass] 30.7 pg Normal 27.0-34.0 [facility] Comment on above: Performed By: #### 1 2413181, 5316228, 8015303, 6653635, 1425795 ####[facility] [address] [place] [address] MCHC (RBC) [Mass/Vol] 33.3 g/dL Normal 31.4-36.0 [facility] Comment on above: Performed By: #### 1 2163650, 7313494, 0539166, 1711867, 2139667 ####[address] [place] [address] MCV (RBC) [Entitic vol] 92.3 fL Normal 80.0-100.0 [facility] Comment on above: Performed By: #### 1 5913553, 1767333, 5973415, 5529067, 2190764 ####[address] [address] Monocytes (Bld) [#/Vol] 0.4 E9/L Normal 0.2-1.0 [facility] Comment on above: Performed By: #### 1 1464527, 2316778, 1000880, 1342723, 4995454 ####[address] [address] Neutrophils (Bld) [#/Vol] 4.7 E9/L Normal 2.0-7.5 [facility] Comment on above: Performed By: #### 1 7722456, 1703613, 8711681, 0344703, 1080765 ####[address] [address] Neutrophils/100 WBC (Bld) 56.7 % Normal 36.0-75.0 [facility] Comment on above: Performed By: #### 1 8152451, 3980418, 0931983, 0170636, 0333897 ####[address] [address] Platelet mean volume (Bld) [Entitic vol] 9.8 fL Normal 6.4-10.8 [facility] Comment on above: Performed By: #### 1 4729309, 0904136, 5126439, 8104199, 0735311 ####[address] [address] Platelets (Bld) [#/Vol] 70.0 E9/L Low 150.0-500.0 [facility] Comment on above: Performed By: #### 1 6985500, 7592679, 0385982, 6435356, 3980431 ####[address] [address] RBC (Bld) [#/Vol] 4.4 E12/L Normal 4.3-5.9 [facility] Comment on above: Performed By: #### 1 2689755, 4678176, 7169693, 3297615, 2910229 ####[facility] [address] [place] [address] WBC corrected for nucl RBC Auto (Bld) [#/Vol] 8.3 E9/L Normal 4.0-11.0 [facility] Comment on above: Performed By: #### 1 6186845, 8221908, 5800691, 0183422, 8443283 ####[facility] [address] [place] [address] CHEMISTRYOrdered By: SYSTEM SYSTEM on 09-17-2023 Albumin [...] 09-17-2023 Albumin [Mass/Vol] 4.0 g/dL Normal 3.3-5.0 [facility] Comment on above: Performed By: #### 1 0354000, 1123103, 9746808, 5553052, 0309857 ####[facility] [address] [place] [address] Albumin/Globulin (S) [Mass conc ratio] 1.3 Normal 1.1-2.2 [facility] Comment on above: Performed By: #### 1 7267764, 0686898, 4278482, 7787989, 1208122 ####[facility] [address] [place] [address] ALP [Catalytic activity/Vol] 66 Int._Unit/L Normal 21-98 [facility] Comment on above: Performed By: #### 1 5596106, 8318220, 5995667, 4898400, 3121445 ####[facility] [address] [place] [address] ALT No additional P-5'-P [Catalytic activity/Vol] 12 Int._Unit/L Normal 6-46 [facility] Comment on above: Performed By: #### 1 7057417, 0203916, 4144185, 0959646, 1543727 ####[facility] [address] [place] [address] AST [Catalytic activity/Vol] 11 Int._Unit/L Normal 5-43 [facility] Comment on above: Performed By: #### 1 6694308, 1704663, 8053582, 7603302, 4688593 ####[facility] [address] [place] [address] Bilirubin [Mass/Vol] 0.5 mg/dL Normal 0.0-1.1 [facility] Comment on above: Performed By: #### 1 9986247, 7639950, 2012133, 7877528, 8151562 ####[address] [place] [address] Globulin (S) [Mass/Vol] 3.2 g/dL Normal 1.4-4.0 [facility] Comment on above: Performed By: #### 1 5564195, 2033830, 0588149, 1049641, 7372822 ####[facility] [address] [place] [address] Protein [Mass/Vol] 7.2 g/dL Normal 6.0-7.8 [facility] Comment on above: Performed By: #### 1 8367912, 3260264, 6340759, 7741552, 2800973 ####[facility] [address] [place] [address] Anion gap [Moles/Vol] 10 mmol/L Normal 6-16 [facility] Comment on above: Performed By: #### 1 0119021, 3825741, 3459371, 4539033, 3905404 ####[facility] [address] [place] [address] Calcium [Mass/Vol] 9.3 mg/dL Normal 8.9-11.1 [facility] Comment on above: Performed By: #### 1 9291678, 4768807, 2853340, 1554716, 0361974 ####[facility] [address] [place] [address] Chloride [Moles/Vol] 104 mmol/L Normal 101-111 [facility] Comment on above: Performed By: #### 1 [id number], 6746050, 4765056, 7785999, 4504991 ####[facility] [address] [place] [address] CO2 [Moles/Vol] 27 mmol/L Normal 21-31 [facility] Comment on above: Performed By: #### 1 [id number], 5823795, 6643640, 5711637, 8999089 ####[facility] [address] [place] [address] Creatinine [Mass/Vol] 0.7 mg/dL Normal 0.5-1.3 [facility] Comment on above: Performed By: #### 1 [id number], 7356354, 8731042, 3264760, 9010003 ####[facility] [address] [place] [address] Glucose [Mass/Vol] 91 mg/dL Normal 55-199 [facility] Comment on above: Performed By: #### 1 [id number], 5615793, 4337354, 8158371, 1230062 ####[facility] [address] [place] [address] Potassium [Moles/Vol] 4.1 mmol/L Normal 3.5-5.3 [facility] Comment on above: Performed By: #### 1 6582224, 7435013, 7682736, 7898501, 5911477 ####[facility] [address] [place] [address] Sodium [Moles/Vol] 137 mmol/L Normal 135-145 [facility] Comment on above: Performed By: #### 1 5102670, 8846191, 1829038, 6537181, 8409981 ####[facility] [address] [place] [address] Urea nitrogen [Mass/Vol] 11 mg/dL Normal 5-21 [facility] Comment on above: Performed By: #### 1 [id number], 5196579, 6846937, 5382220, 4959705 ####[facility] [address] [place] [address] Urea nitrogen/Creatinine [Mass ratio] 16 No Units Normal 10-20 [facility] Comment on above: Performed By: #### 1 [id number], 3776618, 6264765, 2650353, 8049732 ####[facility] [address] [place] [address] Family Medicine Office/Clini c Noteon 09-17-2023 Family Medicine Office/Clinic Note HPI Staff Nicole is a 33 year old female presenting for yearly wellness Health Maintenance: Colonoscopy: n/a Dexa: n/a Mammo: 2022 normal, family hx mom with breast cancer. Would like order for [facility] Pap: May 2023 negative, Dr Geller in [place] Last Labs: nothing in the last year [...] Diff Comprehensive Metabolic Panel Lab Specimen Collect [id number] Lipid Panel Thyroid Stimulating Hormone 2. Breast cancer screening by mammogram (Z12.31: Encounter for screening mammogram for malignant neoplasm of breast) order for mammogram given Ordered: CBC w/ Auto Diff Comprehensive Metabolic Panel Lab Specimen Collect [id number] Lipid Panel Thyroid Stimulating Hormone 3. Non-smoker (Z78.9: Other specified health status) continue not smoking Ordered: Lab Specimen Collect [id number] 4. Right elbow pain (M25.521: Pain in [...] BMI education complete Ordered: Lab Specimen Collect 75068 8. Fatigue (R53.83: Other fatigue) c/o fatigue Ordered: CBC w/ Auto Diff Comprehensive Metabolic Panel Lab Specimen Collect [id number] Lipid Panel Thyroid Stimulating Hormone Orders: amoxicillin, 875 mg = 1 tab(s), Oral, BID, X 7 day(s), # 14 tab(s), Refills(s) 0, Pharmacy: [facility]/pharmacy #[id number], 157.4, cm, 09/25/22 16:16:00 EDT, Height/Length Dosing, 93.3, kg, 09/25/22 16:16:00 EDT, Weight Dosing carisoprodol, 250 mg = 1 tab(s), Oral, Bedtime, PRN Insomnia, # 30 tab(s), Refills(s) 0, Pharmacy: [facility] #72, 157.4, cm, 09/25/22 16:16:00 EDT, Height/Length Dosing, 93.3, kg, 09/25/22 16:16:00 EDT, Weight Dosing celecoxib, 200 mg = 1 cap(s), Oral, Daily, # 90 cap(s), Refills(s) 0, Pharmacy: [facility] #72, 157.4, cm, 09/25/22 16:16:00 EDT, Height/Length Dosing, 93.3, kg, 09/25/22 16:16:00 EDT, Weight Dosing lorazepam, 0.5 mg = 1 tab(s), Oral, q12hr, PRN anxiety, # 20 tab(s), Refills(s) 0, Pharmacy: [facility] #72, 157.4, cm, 09/25/22 16:16:00 EDT, Height/Length Dosing, 93.3, kg, 09/25/22 16:16:00 EDT, Weight Dosing lorazepam, 0.5 mg = 1 tab(s), Oral, q12hr, PRN anxiety, # 20 tab(s), Refills(s) 0, Pharmacy: [facility]/pharmacy #[id number], 157.4, cm, 09/17/23 10:18:00 EDT, [...] Family H (more content not included)... Normal [facility] Comment on above: Result Comment: Elec [...] Heme Lipid Panelon 09-17-2023 VLDL UTC Abnormal - [facility] Comment on above: Result Comment: 'GERRY BLE TO REPORT. TRIG > 400 mg/dl' Result verified by Discern Rule. Performed result UT (Unable to Calculate) was sent as an Alpha code due the inability to calculate a valid numeric value. Performed By: #### 1 [id number], 7106868, 3700979, 9268219, 8813421 ####[facility] [address] [place] [address] Cholesterol [Mass/Vol] 171 mg/dL Normal 120-200 [facility] Comment on above: Performed By: #### 1 3159045, 0760477, 2555204, 8281235, 6002938 ####[facility] [address] [place] [address] Cholesterol in HDL [Mass/Vol] 35 mg/dL Invalid Interpretation Code [facility] Comment on above: Result Comment: '>= 60 LOW RISK' '<= 40 HIGH RISK' Performed By: #### 1 2687169, 4445349, 3107835, 2679093, 5319450 ####[facility] [address] [place] [address] Cholesterol in LDL [Mass/Vol] 64 mg/dL Normal <=129 [facility] Comment on above: Performed By: #### 1 5609428, 1352515, 9327906, 6315059, 5046112 ####[facility] [address] [place] [address] Triglyceride [Mass/Vol] 602 mg/dL High <=149 [facility] Comment on above: Performed By: #### 1 5500075, 1609767, 0696638, 7202789, 3557590 ####[facility] [address] [place] [address] Medication Consenton 024 Medication Consent [id number] #1.00TIFF Normal [facility] Physician Orderon 09-17-2023 Physician Order [id number] #1.00TIFF Normal [facility] TSHon 09-17-2023 TSH Qn 2.10 m[IU]/L Normal 0.34-5.60 [facility] Comment on above: Performed By: #### 1 1278071, 1313189, 3084488, 7350586, 0276244 ####[facility] [address] [place] [address] eGFRon 09-17-2023 eGFR 116 mL/min/1.73 m2 Normal >=59 [facility] Comment on above: Order Comment: Order added by Discern Expert. Performed By: #### 1 5684059, 4742467, 4586424, 4123168, 9576169 ####[facility] [address] [place] [address] Provider Letteron 03-25-2023 Provider Letter March 25, 20[address]TER [address] [place] [id number] : 1990 To Whom It May Concern, Please excuse above patient from work today 03-25-23 due to daughters illness. Date of Illness: From: _03-25-23 To: _ 10-31-23 May Return to Work On:03-26-23 Restrictions: _ Comments: _ Sincerely, [facility] [place] [address] [place] [address] [facility] Provider Letter March 25, 2023 NICOLE CARTER [address] [place] [address] : 1990 To Whom It May Concern, Please excuse above patient from work today 03-25-23 due to daughters illness. Date of Illness: From: 03-25-23 To: 03-25-23 May Return to Work On:03-26-23 Restrictions: _ Comments: _ Sincerely, [facility] Consultation Noteon 12-12-19 Consultation Note [id number] #1.00CD:127 [facility] COVID Quick Testingon 2022 Result Negative [employer] Other CBC AUTO DIFFon 01-01-2019 Basophils (Bld) [#/Vol] 0.0 103/ul Normal 0.0-0.1 [facility] Comment on above: Performed By: #### C BC #### [facility] [address] [place], [place] [address] Ephraim Brandi Basophils/100 WBC (Bld) 0.6 % Normal 0.2-2.0 [facility] Comment on above: Performed By: #### C BC #### [facility] [address] [place], [place] [address] Ephraim Brandi Eosinophils (Bld) [#/Vol] 0.4 103/ul Normal 0.0-0.7 [facility] Comment on above: Performed By: #### C BC #### [facility] [address] [place], [place] [address] Ephraim Brandi Eosinophils/100 WBC (Bld) 5.7 % Normal 0.9-7.0 [facility] Comment on above: Performed By: #### C BC #### [facility] [address] [place], [place] [address] Ephraim Brandi Erythrocyte distribution width (RBC) [Ratio] 12.8 % Normal 11.0-15.0 [facility] Comment on above: Performed By: #### C BC #### [facility] [address] [place], [place] [address] Ephraim Brandi Hematocrit (Bld) [Volume fraction] 42.9 % Normal 36.0-48.0 [facility] Comment on above: Performed By: #### C BC #### [facility] [address] [place], [place] [address] Ephraim Brandi Hemoglobin (Bld) [Mass/Vol] 14.2 g/dL Normal 12.0-16.0 [facility] Comment on above: Performed By: #### C BC #### [facility] [address] [place] [address] Ephraim Brandi IG # 0.02 10e3/ul Normal 0.00-0.03 [facility] Comment on above: Performed By: #### C BC #### [facility] [address] [place] [address] Ephraim Brandi IG % 0.3 % Normal 0.0-0.5 [facility] Comment on above: Performed By: #### C BC #### [facility] [address] [place], [place] [address] Ephraim Brandi Lymphocytes (Bld) [#/Vol] 2.5 103/ul Normal 1.2-3.8 [facility] Comment on above: Performed By: #### C BC #### [facility] [address] [place], [place] [address] Ephraim Brandi Lymphocytes/100 WBC (Bld) 34.7 % Normal 20.5-60.0 [facility] Comment on above: Performed By: #### C BC #### [facility] [address] [place], [place] [address] Ephraim Brandi MANUAL DIFF REQ NO Normal [facility] Comment on above: Performed By: #### C BC #### [facility] [address] [place], [place] [address] Ephraim Brandi MCH (RBC) [Entitic mass] 31.8 pg Normal 26.7-34.0 [facility] Comment on above: Performed By: #### C BC #### [facility] [address] [place], [place] [address] Ephraim Paz MCHC (RBC) [Mass/Vol] 33.1 g/dL Normal 29.9-35.2 [facility] Comment on above: Performed By: #### C BC #### [facility] [address] [place], [place] [address] Ephraimmi Paz MCV (RBC) [Entitic vol] 96.0 fL Normal 81.0-99.0 [facility] Comment on above: Performed By: #### C BC #### [facility] [address] [place], [place] [address] Ephraim Brandi Monocytes (Bld) [#/Vol] 0.4 103/ul Normal 0.3-0.8 [facility] Comment on above: Performed By: #### C BC #### [facility] [address] [place], [place] [address] Ephraimmi Paz Monocytes/100 WBC (Bld) 5.4 % Normal 1.7-12.0 [facility] Comment on above: Performed By: #### C BC #### [facility] [address] [place], [place] [address] Ephraim Brandi Neutrophils (Bld) [#/Vol] 3.8 103/ul Normal 1.4-6.5 [facility] Comment on above: Performed By: #### C BC #### [facility] [address] [place], [place] [address] Ephraim Brandi Neutrophils/100 WBC (Bld) 53.3 % Normal 43.0-75.0 [facility] Comment on above: Performed By: #### C BC #### [facility] [address] [place], [place] [address] Ephraim Brandi Platelet mean volume (Bld) [Entitic vol] 10.5 fL Normal 9.5-13.5 [facility] Comment on above: Performed By: #### C BC #### [facility] [address] [place], [place] [address] Ephraim Brandi Platelets (Bld) [#/Vol] 156 103/ul Normal 150-450 [facility] Comment on above: Performed By: #### C BC #### [facility] [address] [place], [place] [address] Ephraim Brandi RBC (Bld) [#/Vol] 4.47 106/ul Normal 4.20-5.40 [facility] Comment on above: Performed By: #### C BC #### [facility] [address] [place], [place] [address] Ephraim Brandi WBC (Bld) [#/Vol] 7.2 103/ul Normal 4.0-11.0 [facility] Comment on above: Performed By: #### C BC #### [facility] [address] [place] [address] Ephraim Brandi PROF CHEM 8 (BAS METB)on Anion gap [Moles/Vol] 8.2 mmol/L Normal [facility] Comment on above: Performed By: #### B MP #### [facility] [address] [place] [address] Ephraim Brandi Calcium [Mass/Vol] 9.6 mg/dL Normal 8.4-10.2 [facility] Comment on above: Performed By: #### B MP #### [facility] [address] [place] [address] Ephraim Brandi Chloride [Moles/Vol] 105 mmol/L Normal 98-107 [facility] Comment on above: Performed By: #### B MP #### [facility] [address] [place] [address] Ephraim Brandi CO2 [Moles/Vol] 29.8 mmol/L Normal 22.0-30.0 [facility] Comment on above: Performed By: #### B MP #### [facility] [address] [place] [address] Ephraim Brandi Creatinine [Mass/Vol] 0.71 mg/dL Normal 0.52-1.04 [facility] Comment on above: Performed By: #### B MP #### [facility] [address] [place], [place] [address] Ephraim Brandi EGFR-AF [place] >60 Normal >=60 [facility] Comment on above: Performed By: #### B MP #### [facility] [address] [place] [address] Ephraim Brandi EGFR-NON AF [place] >60 Normal >=60 [facility] Comment on above: Performed By: #### B MP #### [facility] [address] [place] [place] [address] Ephraim Brandi Glucose [Mass/Vol] 90 mg/dL Normal 74-106 [facility] Comment on above: Performed By: #### B MP #### [facility] [address] [place] [address] Ephraim Brandi Potassium [Moles/Vol] 4.0 mmol/L Normal 3.4-5.0 [facility] Comment on above: Performed By: #### B MP #### [facility] [address] [place] [address] Ephraim Brandi Sodium [Moles/Vol] 139 mmol/L Normal 137-145 [facility] Comment on above: Performed By: #### B MP #### [facility] [address] [place] [address] Ephraim Brandi Urea nitrogen [Mass/Vol] 9.0 mg/dL Normal 7.0-17.0 [facility] Comment on above: Performed By: #### B MP #### [facility] [address] [place], [place] [address] Ephriam Brandi Urea nitrogen/Creatinine [Mass ratio] 12.7 mg/mg Normal [facility] Comment on above: Performed By: #### B MP #### [facility] [address] [place], [place] [address] Ephraim Brandi Vital Signs Date Time Vital Sign Value Performing Clinician Facility 11-20-2023 09:45-0400 Body temperature 97.88 [degF] Brody Weston [facility] 11-20-2023 09:45-0400 Diastolic blood pressure 71 mm[Hg] [facility] 11-20-2023 09:45-0400 Heart rate 96 /min [facility] 11-20-[facility]23 09:45-0400 Mean blood pressure 85 mm[Hg] [facility] 11-20-2023 09:45-0400 Respiratory rate 16 /min [facility] 11-20-2023 09:45-0400 SaO2% (BldA) [Mass fraction] 99 % [facility] 11-20-2023 09:45-0400 Systolic blood pressure 112 mm[Hg] [facility] 10-16-2023 09:12-0400 Body temperature 98.06 [degF] [facility] 10-16-2023 09:12-0400 Diastolic blood pressure 75 mm[Hg] [facility] 10-16-2023 09:12-0400 Heart rate 90 /min [facility] 10-16-2023 09:12-0400 Mean blood pressure 85 mm[Hg] [facility] 10-16-2023 09:12-0400 Respiratory rate 16 /min [facility] 10-16-2023 09:12-0400 SaO2% (BldA) [Mass fraction] 98 % [facility] 10-16-2023 09:12-0400 Systolic blood pressure 106 mm[Hg] [facility] 07-17-2023 13:04-0500 Body height 156.[address] [facility] 07-17-2023 13:04-0500 Body mass index (BMI) [Ratio] 36.62 kg/m2 [facility] 07-17-2023 13:04-0500 Body weight 89.[address] [facility] 07-17-2023 13:04-0500 Diastolic blood pressure 76 mm[Hg] [facility] 07-17-2023 13:04-0500 Systolic blood pressure 110 mm[Hg] [facility] Jig Borer [facility] 12-10-2022 13:55-0400 Body height 157.48 cm Letha Herring Other [employer] Other 12-10-2022 13:55-0400 Body mass index (BMI) [Ratio] 37.86 kg/m2 Letha Herring Other [employer] Other 12-10-2022 13:55-0400 Body temperature 97.7 [degF] Letha Herring Other [employer] Other 12-10-2022 13:55-0400 Body weight 93.9 kg Letha Herring Other [employer] Other 12-10-2022 13:55-0400 Diastolic blood pressure 85 mm[Hg] Letha Herring Other [employer] Other 12-10-2022 13:55-0400 Respiratory rate 18 /min Letha Herring Other [employer] Other 12-10-2022 13:55-0400 SaO2% (BldA) [Mass fraction] 100 % Letha Herring Other [employer] Other 12-10-2022 13:55-0400 Systolic blood pressure 122 mm[Hg] Letha Herring Other [employer] Other 08-29-2022 10:00-0400 Body height 157.48 cm Crista Hernandez Other [employer] Other 08-29-2022 10:00-0400 Body mass index (BMI) [Ratio] 36.03 kg/m2 Crista Hernandez Other [employer] Other 08-29-2022 10:00-0400 Body temperature 97.3 [degF] Crista Hernandez Other [employer] Other 08-29-2022 10:00-0400 Body weight 89.36 kg Crista Hernandez Other [employer] Other 08-29-2022 10:00-0400 Respiratory rate 18 /min Crista Hernandez Other [employer] Other 08-29-2022 10:00-0400 SaO2% (BldA) [Mass fraction] 98 % Crista Hernandez Other [employer] Other Encounters Encounter Date Encounter Type Care Provider Facility Start: 01-16-2024 End: 01-16-2024 ambulatory EFFICIENCY EXPERT Yocasta L Coty Facility:[facility] Start: 01-16-2024 End: 01-16-2024 Lab Drop off Yocasta L Coty [facility] Start: 01-16-2024 End: 01-16-2024 ambulatory EFFICIENCY EXPERT Yocasta L Coty Facility:[facility] Sadie byrd Start: 01-14-2024 End: 01-15-2024 Emergency department patient visit DEVANG TREJO [facility] Start: 12-23-2023 End: 12-23-2023 ambulatory EFFICIENCY EXPERT Yocasta L Coty Facility:[facility] Sadie byrd Start: 11-20-2023 End: 11-20-2023 ambulatory Brody Weston Facility:[facility] Start: 11-20-2023 End: 11-20-2023 Patient encounter procedure Brody Weston [facility] Start: 10-23-2023 ambulatory Brody Weston Facil ity:[facility] Start: 10-16-2023 End: 10-16-2023 ambulatory Brody Weston Facility:[facility] Start: 10-16-2023 End: 10-16-2023 Patient encounter procedure Brody Weston [facility] Start: 10-09-2023 End: 10-10-2023 ambulatory Yocasta L Coty Facility:[facility] Start: 10-09-2023 End: 10-09-2023 Lab Drop off Yocasta L Coty [facility] Start: 10-09-2023 End: 10-09-2023 ambulatory EFFICIENCY EXPERT Yocasta L Coty Facility:[facility] Sadie blackwoode Start: 09-17-2023 End: 09-17-2023 Lab Drop off Yocasta L Coty [facility] Start: 09-17-2023 End: 09-17-2023 ambulatory EFFICIENCY EXPERT Yocasta L Coty Facility:[facility] Start: 07-30-2023 End: 07-30-2023 ambulatory EFFICIENCY EXPERT Yocasta L Coty Facility:[facility] Sadie blackwoode Start: 07-17-2023 End: 07-17-2023 ambulatory HICKORY Joann [facility] Start: 07-17-2023 Encounter for gynecological examination (general) (routine) without abnormal findings [facility] Start: 07-17-2023 End: 07-17-2023 Patient encounter procedure [facility] Start: 07-17-2023 End: 07-17-2023 Periodic preventive med est patient 18-39 yrs [facility] Jig Borer [facility] Comment on above: Well woman exam with routine gynecological exam (Primary Dx); Family hx-breast malignancy; At high risk for breast cancer; Standardized adult depression screening tool completed Start: 12-10-2022 End: 12-10-2022 ambulatory Letha Herring Other [employer] Other Start: 12-10-2022 Office outpatient vi sit 15 minutes Letha Herring [facility] Start: 12-09-2022 ambulatory EFFICIENCY EXPERT Yocasta Ansari Facilit y:[facility] Start: 08-29-2022 End: 08-29-2022 ambulatory Crista Hernandez Other [employer] Other Start: 08-29-2022 Office outpatient vi sit 15 minutes Crista Hernandez [facility] Start: 01-01-2019 End: 01-02-2019 Patient encounter procedure DANA RAMIREZ Facility:[facility] Procedures Date Procedure Procedure Detail Performing Clinician Start: 07-17-2023 Adult depression scr eening assessment [facility] Start: 05-23-2021 Microscopic observat ion [Identifier] in Cervix by Cyto stain [facility] Gallbladder structur e (body structure) Yocasta Ansari Comment on above: removed Scoliosis deformity of spine (disorder) Yocasta Ansari Comment on above: surgery Plan of Treatment Date Care Activity Detail Author Start: 07-17-2024 Adult BMI Follow Up Plan Adult BMI Follow Up Plan [facility] [employer] Start: 07-17-2024 Adult BMI Screening Adult BMI Screen ing [facility] [employer] Start: 07-17-2024 Depression Screening Depression Scre ening [facility] Start: 07-17-2024 Tobacco Screening Tobacco Screening [facility] Start: 05-23-2024 Screening for malign ant neoplasm of cervix Pap Smear [facility] Start: 07-17-2023 End: 09-13-2024 DBT Breast - bilateral screening Mammography screening bilateral with CAD Imaging Routine Family hx-breast malignancy At high risk for breast cancer Expected: 07/17/2023, Expires: 09/13/2024 [employer] Work Phone: Comment on above: Expected: 07/17/2023 , Expires: 09/13/2024 Start: 01-24-2023 Influenza vaccination Influenza Vacc ine [facility] Start: 02-25-2008 DTaP,Tdap and Td Vaccines (1 - Tdap) DTaP,Tdap and Td Vaccines (1 - Tdap) [facility] Payers Date Payer Category Payer Unknown [employer] OUT OF STATE PPO/TRUST [id number] 2017-Present [phone] [address] [place] [address] [id number] 1989 Unknown [id number] 2.16.840.1.922237.3.579.2.593 1989 Unknown [id number] 2.16.840.1.201917.3.579.2.1286 1989 Unknown [id number] 2.16.840.1.031197.3.579.2.727 1989 Unknown [id number] 2.16.840.1.255349.3.579.2.727 1989 Unknown [id number] 2.16.840.1.162271.3.579.2.727 1989 Unknown [id number] 2.16.840.1.673485.3.579.2.727 1989 Unknown [id number] 2.16.840.1.722406.3.579.2.727 1989 Unknown [id number] 2.16.840.1.822170.3.579.2.1286 1989 Unknown [id number] 2.16.840.1.194985.3.579.2.1286 1989 Unknown [id number] 2.16.840.1.047616.3.579.2.727 1989 Unknown [id number] 2.16.840.1.348669.3.579.2.727 1989 Unknown [id number] 2.16.840.1.621877.3.579.2.727 1989 Unknown [id number] 2.16.840.1.971006.3.579.2.727 1989 Unknown [id number] 2.16.840.1.891471.3.579.2.727 1959 Unknown [id number] Social History Date Type Detail Facility Unknown if ever smoked [place] [employer] Other Start: 11-02-2018 End: 07-17-2023 Sex Assigned At [employer] [facility] [facility] [employer] Other Start: 06-18-2022 End: 01-16-2024 Tobacco smoking status IDIS Ex-smoker [facility] History of tobacco use Current smoker [facility] Start: 06-18-2022 Tobacco use and exposure Smokeless tobacco non-user [facility] Start: 07-17-2023 Alcohol intake Current drinke r of alcohol (finding) [facility] Start: 11-02-2018 End: 07-17-2023 History of Social function [facility] Adolescent depressio n screening assessment [address] [facility] Start: 05-23-2021 Alcohol Comment rarely [facility] Start: 1990 Sex Assigned At Not on file P [facility] Start: 09-25-2022 End: 10-09-2023 Tobacco smoking status Never smoked tobacco (finding) [facility] [place] Clinical Notes 08-29-2022 to 11-20-2023 Sandra Winchester, INSTRUMENT STERILIZER-CHARGE HISTOTECHNOLOGIST - 07/17/2023 1:00 PM EST Note Date [...] by her primary care provider Yocasta [facility]. Medical history includes depression, anxiety, hypertension, reflux. Outpatient medications include atenolol, gabapentin, Celexa, Prilosec, albuterol as needed. She is not a regular drinker she works in an [employer]. Review of CBC from September 17, [...] % 10/09/23 Lymph Auto 34.4 % 09/17/23 Sharp Auto 4.6 % 10/09/23 Sharp Auto 4.6 % 09/17/23 Eos Auto 4.6 % 10/09/23 Eos Auto 3.7 % 09/17/23 Basophil Auto 0.7 % 10/09/23 Basophil Auto 0.6 % 09/17/23 Neutro Absolute 3.1 E9/L 10/09/23 Neutro Absolute 4.7 E9/L 09/17/23 Lymph Absolute 2 E9/L 10/09/23 Lymph Absolute 2.9 E9/L 09/17/23 Sharp Absolute 0.3 E9/L 10/09/23 Sharp Absolute 0.4 E9/L 09/17/23 Eos Absolute 0.3 E9/L 10/09/23 Eos Absolute 0.3 E9/L 09/17/23 Basophil Absolute 0 E9/L 10/09/23 Basophil Absolute 0.1 E9/L 09/17/23 Path Review Path Review 10/09/23 Glucose Lvl 91 mg/dL 09/17/23 BUN 11 mg/dL 09/17/23 Creatinine 0.7 mg/dL 09/17/23 Potassium Lvl 4.1 mmol/L 09/17/23 Chloride 104 mmol/L more content not included)... [facility] 10-16-2023 Hospital Discharge instructions Patient Education [...] including vitamins, herbs, eye drops, creams, and ofrv-mkd-tutbdvj medicines. Any problems you or family members [...] provider tells you to take them. Taking kaub-nfy-mtlgxnu medicines, vitamins, herbs, and supplements. General instructions [...] including vitamins, herbs, eye drops, creams, and tutf-faj-junpoxo medicines. Plan to have someone take you [...] provider. Document Revised: 09/28/2019 Document Reviewed: 09/28/2019 [employer] Patient Education 2022 [employer]. Follow Up Care 10/15/2023 13:32:38 With:Brody Weston DO, ONC Address: [facility] [address] [place], [place] [address], [place] [address]- [phone] Fax Business (1) When: Unknown Comments:weekly cbc,check zinc and copper with next labs.f/u in 1 month. [facility] 10-09-2023 Evaluation + Plan note Diagnostic Tests [facility]. Review 10/09/23 [facility] 07-17-2023 History of Present illness Narrative Annual Well Woman Visit 07/17/2023 Cecilio Carter is a 33 y.o. 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 Follow up as needed. Next pap due 2025 per ASCCP guidelines. Discussed taking a multivitamin. Discussed Calcium and Vitamin D for prevention of osteoporosis. HPV vaccine is recommended between 9-45 yo. Can be received at [facility] or the [facility] department. Discussed need for yearly mammogram after 40 yo. Discussed colon cancer screening recommendations to begin at 45 yo, patient to discuss with PCP. All questions answered. NAREN Villanueva APRN-CNP Lisa M Franco, APRN-CNP 07/17/23 1329 documented in this encounter [employer] 12-10-2022 Evaluation note Encounter Date Diagnosis Assessment [...] understanding and is agreeable to treatment plan. [employer] Other 04-06-2023 Evaluation note* Encounter Date Diagnosis [...] no improvement in 2 to 3 days. [employer] Other Evaluation + Plan note Future Appointments Appointment Date:10/09/2023 10:20:00 AM Scheduled Provider:Yocasta Vidal [facility] Future [facility]ments Appointment [...] 10/22/23 * CBC w/ Auto Diff [facility]ments Appointment Date:05/27/2024 11:00:00 AM Scheduled Provider:Brody Weston DO Location:.ONCOLOGY Appointment Type:ONC Office Visit 20 (FT) Diagnostic Tests Pending * CBC w/ Auto Diff [facility] Future App[facility]ments Appointment Date:05/27/2024 11:00:00 AM Scheduled Provider:Brody Weston DO Location:.ONCOLOGY Appointment Type:ONC Office Visit 20 (FT) Diagnostic Tests Pending * Urine Culture 01/16/24 [facility] Evaluation note* Diagnosis Well woman exam with routine gynecological exam- Primary Routine gynecological examination Family hx-breast malignancy At high risk for breast cancer Standardized adult depression screening tool completed [facility] - [facility]* Type Description Date Medical History anxiety Medical History depression Surgical History cholecystectomy 2014 Hospitalization History see above [employer] [facility] Other History general Narrative - Reported* Type Description Date Medical History anxiety Medical History depression Medical History high blood pressure Medical History Esophageal reflux Surgical History cholecystectomy 2014 Hospitalization History see above [employer] Other Hospital course Narrative No data available for this section [facility] No data available for this section [facility] Attachments The following attachments cannot be sent through Care Everywhere. * Health Risks of a High BMI (Austrian) * Lowering Your Risk of Breast Cancer (Austrian) [facility] No data available for this section [facility] Summary Purpose Family History No Family [...] and content) DATE CREATED AUTHOR 01/09/2019 [facility] DATE CREATED AUTHOR AUTHOR'S ORGANIZ ATION 07/25/2023 [facility] DATE CREATED AUTHOR AUTHOR'S ORGANIZ ATION 10/12/2023 [facility] DATE CREATED AUTHOR AUTHOR'S ORGANIZ ATION 10/30/2023 [facility] DATE CREATED AUTHOR AUTHOR'S ORGANIZ ATION 01/15/2024 [facility] DATE CREATED AUTHOR AUTHOR'S ORGANIZ ATION 01/19/2024 [facility] DATE CREATED AUTHOR AUTHOR'S ORGANIZ ATION 01/20/2024 [facility] DATE CREATED AUTHOR AUTHOR'S ORGANIZ ATION 02/01/2024 [facility] REASON FOR VISIT (unrecogniz ed section and content) Reason Comments Gynecologic Exam Pt is here for el ma exam. Care Teams (unrecognized sec tion and content) Peritoneal Dialysis Registered Nurse Relationship Specialty Start Date End Date Dana Ramirez MD [address] [place] [address] PCP - General Family Medicine 05/23/21 FOR [...] BE BASED ON THE PRIMARY CLINICAL RECORDS. [facility]. provides no warranty or guarantee of the accuracy or completeness of information in this document.
[2024-02-16 11:55] LABS: Basophils Absolute Auto 0.1 10^3/uL (0.0-0.1); Basophils Percent Auto 0.7 % (0.2-2.0); Eosinophils Absolute Auto 0.3 10^3/uL (0.0-0.7); Eosinophils Percent Auto 4.4 % (0.9-7.0); Hematocrit 37.1 % (36.0-48.0); Hemoglobin 12.3 g/dL (12.0-16.0); Immature Granulocytes Abs Auto 0.08 10^3/uL (0.00-0.03); Immature Granulocytes Pct Auto 1.1 % (0.0-0.5); Lymphocytes Absolute Auto 3.4 10^3/uL (1.2-3.8); Lymphocytes Percent Auto 45.5 % (20.5-60.0); Mean Corpuscular HGB Conc 33.2 g/dL (29.9-35.2); Mean Corpuscular Hemoglobin 30.8 pg (26.7-34.0); Mean Corpuscular Volume 92.8 fL (81.0-99.0); Monocytes Absolute Auto 0.3 10^3/uL (0.3-0.8); Monocytes Percent Auto 4.3 % (1.7-12.0); Neutrophils Absolute Auto 3.3 10^3/uL (1.4-6.5); Red Cell Distribution Width 14.4 % (11.0-15.0)
[2024-02-16 12:14] LABS: Platelet Count 53 10^3/uL (150-450); White Blood Count 7.6 10^3/uL (4.0-11.0)
== END 2024-02-16 11:30 | disposition home or self-care (01) ==
LOC: LAB 11:30
PROVIDERS: PCP Nurse Practitioner; Visit Provider Internal Medicine
DX: D69.6 Thrombocytopenia, unspecified (principal)
CPT/HCPCS: 36415; 85025

== ENCOUNTER 2024-03-15 11:33 | Outpatient (OUT) | payer BC, SELFPAY ==
[2024-03-15 11:50] LABS: Basophils Absolute Auto 0.1 10^3/uL (0.0-0.1); Basophils Percent Auto 0.6 % (0.2-2.0); Eosinophils Absolute Auto 0.4 10^3/uL (0.0-0.7); Eosinophils Percent Auto 3.9 % (0.9-7.0); Hematocrit 39.3 % (36.0-48.0); Immature Granulocytes Abs Auto 0.03 10^3/uL (0.00-0.03); Immature Granulocytes Pct Auto 0.3 % (0.0-0.5); Lymphocytes Absolute Auto 3.5 10^3/uL (1.2-3.8); Lymphocytes Percent Auto 32.6 % (20.5-60.0); Mean Corpuscular HGB Conc 33.1 g/dL (29.9-35.2); Mean Corpuscular Hemoglobin 30.2 pg (26.7-34.0); Mean Corpuscular Volume 91.4 fL (81.0-99.0); Monocytes Absolute Auto 0.5 10^3/uL (0.3-0.8); Monocytes Percent Auto 4.7 % (1.7-12.0); Neutrophils Absolute Auto 6.2 10^3/uL (1.4-6.5); Neutrophils Percent Auto 57.9 % (43.0-75.0)
[2024-03-15 11:55] LABS: Platelet Count 86.9 10^3/uL (150-450); White Blood Count 10.9 10^3/uL (4.0-11.0)
--- OUTSIDE RECORDS SUMMARY | 2024-03-15 11:57 | XMS_ITS | CCD ---
Author Organization [facility] Care Team Providers Care Ski Lift Attendant Name Role Phone DANA RAMIREZ Admitting Unavailable DANA RAMIREZ Attending Unavailable DANA RAMIREZ Referring Unavailable DANA RAMIREZ Consulting Unavailable Crista Hernandez Unavailable Letha Herring Unavailable Dana Ramirez MD Primary Care Provider DANA RAMIREZ Referring Unavailable DANA RAMIREZ Primary Care Unavailable CotySandradi Jerry Primary Care Physician [phone] Coty, Yocasta L Admitting Unavailable Coty, Yocasta L Attending Unavailable Coty, SAFETY CLOTHING AND EQUIPMENT DEVELOPER Yocasta L Attending Unavailable Coty, SAFETY CLOTHING AND EQUIPMENT DEVELOPER Yocasta L Attending Unavailable Coty, SAFETY CLOTHING AND EQUIPMENT DEVELOPER Yocasta Ma Attending Unavailable Coty, SAFETY CLOTHING AND EQUIPMENT DEVELOPER Yocasta L Admitting Unavailable Coty, SAFETY CLOTHING AND EQUIPMENT DEVELOPER Yocasta L Attending Unavailable Coty, SAFETY CLOTHING AND EQUIPMENT DEVELOPER Yocasta L Admitting Unavailable Coty, SAFETY CLOTHING AND EQUIPMENT DEVELOPER Yocasta L Attending Unavailable OLGA LIDIA MARTINEZ Primary Care Unavailable DEVANG TREJO Attending Unavailable DEVANG TREJO Attending Unavailable DEVANG TREJO Referring Unavailable OLGA LIDIA MARTINEZ Primary Care Unavailable Brody Weston Attending Unavailable Brody Weston Attending Unavailable Coty, SAFETY CLOTHING AND EQUIPMENT DEVELOPER Yocasta Jerry Referring Unavailable Coty, SAFETY CLOTHING AND EQUIPMENT DEVELOPER Yocasta L Attending Unavailable Coty, SAFETY CLOTHING AND EQUIPMENT DEVELOPER Yocasta L Admitting Unavailable Coty, SAFETY CLOTHING AND EQUIPMENT DEVELOPER Yocasta L Attending Unavailable Coty, SAFETY CLOTHING AND EQUIPMENT DEVELOPER Yocasta L Attending Unavailable Allergies Allergy Classification Reported Allergen(s) Allergy Type Date of Onset Reaction(s) Facility (1 source) desloratadine / Pseudoephedrine Drug Allergy 09-24-19 15 [facility] Repository (5 sources) predniSONE; Translations: [PREDNISONE] Drug Allergy 09-22-19 15 [facility] Repository (3 sources) Sertraline; Translations: [Zoloft] Drug Allergy 09-22-19 15 [facility] Repository (2 sources) Ciprofloxacin Drug Allergy Unknown [email or web address] Other (10 sources) Sertraline; Translations: [SERTRALINE] Drug Allergy 05-23-20 21 Palpitations, Unknown (qualifier value) [email or web address] Other (6 sources) predniSONE; Translations: [prednisone] Drug Allergy 05-23-20 21 Palpitations, Unknown (qualifier value) [facility] Medications Current Medications Medication Drug Class(es) Dates Sig (Normalized) Sig (Original) atenolol 25 mg oral tablet (8 sources) beta-Adrenergic Mark Start: 09-09-2023 take 1 tablet by mouth once daily atenolol 25 mg Tab 25 mg = 1 tab(s), Oral, Daily, # 90 tab(s), Refills(s) 1, Pharmacy: [facility]/pharmacy #[id number], 157.4, cm, 09/25/22 16:16:00 EDT, Height/Length [...] # 60 cap(s), Refills(s) 0, [id number] 157.4, cm, 10/09/23 10:28:00 EDT, Height/Length Dosing, 87.6, kg, 10/09/23 10:28:00 EDT, Weight Dosing Start Date: 10/09/23 Status: Ordered LORazepam 0.5 mg oral tablet (5 sources) Benzodiazepine Start: 09-17-2023 take 1 tablet by mouth every twelve hours as needed for anxiety Ativan 0.5 mg Tab 0.5 mg = 1 tab(s), Oral, q12hr, PRN anxiety, # 20 tab(s), Refills(s) 0, [id number], 157.4, cm, 09/17/23 10:18:00 EDT, Height/Length [...] # 90 tab(s), Refills(s) 1, [id number], 157.4, cm, 09/25/22 16:16:00 EDT, Height/Length [...] tab(s), Oral, BID, 20 tab(s), Refill(s) 0, [facility]/pharmacy #[id number], 157, cm, 01/16/24 11:03:00 EDT, Height/Length Dosing, 88.8, kg, 01/16/24 11:03:00 EDT, Weight Dosing Start Date: 01/16/24 Status: Ordered Completed/Discontinued Medications Medication Drug Class(es) Dates Sig (Normalized) Sig (Original) [id number] 200 actuat albuterol 0.09 mg/actuat metered dose [...] Letter January 30, 2024 NICOLE CARTER [address] [place] [address] : 1990 To Whom It May Concern, Please excuse above patient from work due to daughter being off school today Friday01-30-24 illness. Date of Illness: From: _ To: _ May Return to Work On:02-02-24 Restrictions: _ Comments: _ Sincerely, Family Medicine [address] [address] [facility] C Urineon 01-18-2024 Bacteria identified Cx [...] Locations R1: This test was performed at: [facility], [address] [place] [address], [address] , [place], Normal [facility] Comment on above: Performed By: #### 2 [id number] #### [facility] Laboratory [address] [place] [address] Ambulatory Visit Summaryon 0 01-16-2024 Ambulatory Visit [...] choosing us for your care. Normal [facility] Family Medicine Office/Clini c Noteon 01-16-2024 Family Medicine Office/Clinic Note Family Medicine Office/Clinic Note HPI Staff Pt presents today for [facility] ER f/u and [facility] Hospital: [facility] ( has report) Visit date: 01/13 Symptoms the patient presented with: urinary retention, and nausea and vomiting Current concerns: ER followup: Hospital: [facility] (called for report 01/14) Visit date: 01/13 [...] Urnls Dip Stick Auto w/o Microscopy POC 59212 2. Former smoker (Z87.891: Personal history of nicotine dependence) continue not smoking Ordered: Urine Culture Urnls Dip Stick Auto w/o Microscopy POC 62118 3. BMI 36.0-36.9,adult (Z68.36: Body mass index [BMI] 36.0-36.9, adult) BMI education given Ordered: Urine Culture Urnls Dip Stick Auto w/o Microscopy POC 10659 4. Class 1 obesity due to excess calories in adult (E66.09: Other obesity due to excess calories) see above Ordered: Urine Culture Urnls Dip Stick Auto w/o Microscopy POC 27790 Orders: sulfamethoxazole-tri methoprim, 1 tab(s), Oral, BID, [...] Dipstick: 1+ (30 mg/dl) (01/16/24 12:03:00) Specific [place] Urine Dipstick: 1.010 (01/16/24 12:03:00) Urine Appearance Urine Dipstick: Clear (01/16/24 12:03:00) Urine Color Urine Dipstick: Light yellow (01/16/24 12:03:00) Urobilinogen Urine Dipstick: Normal 0.2-1 EU/dl (01/16/24 12:03:00) pH Urine Dipstick: 7 (01/16/24 12:03:00) Normal [facility] Comment on above: Result Comment: Elec tronically Signed By: Yocasta [email or web address].br\Date and Time Signed: 01/16/24 12:27 EDT Provider Letteron 01-16-2024 Provider Letter Provider Letter January 16, [address] [address] : 1990 To Whom It May Concern, Please excuse above patient from work due to medical Date of Illness: From: _ Sunday January 14, 2024 To: _ Thursday January 18, 2024 May Return to Work On:Friday January 19, 2024 Restrictions: _ Comments: _ Sincerely, [address] [address] Normal [facility] BASIC METABOLIC PANLon 01-13 Anion gap [Moles/Vol] 8 mmol/L Normal 5-15 [facility] Comment on above: Performed By: #### B ANISH CBCA #### [facility] ([id number]) [address] [place] [address] Calcium [Mass/Vol] 9.1 mg/dL Normal 8.5-10.5 [facility] Comment on above: Performed By: #### B ANISH CBCA #### [facility] ([id number]) [address] [place] [address]15 Chloride [Moles/Vol] 105 mmol/L Normal 98-109 [facility] Comment on above: Performed By: #### B ANISH, CBCA #### [facility] ([id number]) [address] [place] [address] CO2 [Moles/Vol] 26 mmol/L Normal 22-32 [facility] Comment on above: Performed By: #### B ANISH CBCA #### [facility] ([id number]) [address] [place] [address] 63783 Creatinine [Mass/Vol] 0.68 mg/dL Normal 0.40-1.00 [facility] Comment on above: Result Comment: METH OD TRACEABLE TO IDMS STANDARD Performed By: #### B ANISH CBCA #### [facility] ([id number]) [address] [place] [address]28 eGFR (CKD-EPI) NON-RACE DEPENDENT >90 Normal >59 [facility] Comment on above: Result Comment: Reported eGFR is based on the CKD-EPI 2020 equation that does not use a race coefficient. Performed By: #### B ANISH CBCA #### [facility] ([id number]) [address] [place] [address]60 Glucose [Mass/Vol] 106 mg/dL High 65-99 [facility] Comment on above: Performed By: #### B ANISH CBCA #### [facility] ([id number]) [address] [place] [address] 80954 Potassium [Moles/Vol] 3.4 mmol/L Low 3.5-5.0 [facility] Comment on above: Performed By: #### B ANISH CBCA #### [facility] ([id number]) [address] [place] [address] 36209 Sodium [Moles/Vol] 139 mmol/L Normal 134-146 [facility] Comment on above: Performed By: #### B ANISH CBCA #### [facility] ([id number]) [address] [place] [address] 44008 Urea nitrogen [Mass/Vol] 13 mg/dL Normal 5-23 [facility] Comment on above: Performed By: #### B ANISH CBCA #### [facility] ([id number]) [address] [place] [address] CBC AND AUTO DIFFon -- 24 ABSOLUTE BASOPHIL 0.1 X10E9/L Normal 0.0-0.2 [facility] Comment on above: Performed By: #### B ANISH CBCA #### [facility] ([id number]) [address] [place] [address] ABSOLUTE NEUTROPHIL 5.4 X10E9/L Normal 1.5-6.6 [facility] Comment on above: Performed By: #### B MP, CBCA #### [facility] ([id number]) [address] [place] [address] Basophils/100 WBC (Bld) 1.1 % Normal [facility] Comment on above: Performed By: #### B MP, CBCA #### [facility] ([id number]) [address] [place] [address] 74247 Eosinophils (Bld) [#/Vol] 0.4 10*3/uL Normal 0.0-0.4 [facility] Comment on above: Performed By: #### B MP, CBCA #### [facility] ([id number]) [address] [place] [address]121 Eosinophils/100 WBC (Bld) 4.4 % Normal [facility] Comment on above: Performed By: #### B MP, CBCA #### [facility] ([id number]) [address] [place] [address] Erythrocyte distribution width (RBC) [Ratio] 14.0 % Normal 11.5-15.0 [facility] Comment on above: Performed By: #### B MP, CBCA #### [facility] ([id number]) [address] [place] [address] 88909 Hematocrit (Bld) [Volume fraction] 36.9 % Normal 35-47 [facility] Comment on above: Performed By: #### B MP, CBCA #### [facility] ([id number]) [address] [place] [address] 99431 Hemoglobin (Bld) [Mass/Vol] 12.5 g/dL Normal 11.7-15.5 [facility] Comment on above: Performed By: #### B MP, CBCA #### [facility] ([id number]) [address] [place] [address] [place] [address] Lymphocytes (Bld) [#/Vol] 2.5 10*3/uL Normal 1.0-3.5 [facility] Comment on above: Performed By: #### B MP, CBCA #### [facility] ([id number]) [address] [place] [address] 69[address] Lymphocytes/100 WBC (Bld) 28.0 % Normal [facility] Comment on above: Performed By: #### B MP, CBCA #### [facility] ([id number]) [address] [place] [address] 19585 MCH (RBC) [Entitic mass] 30.4 pg Normal 27-34 [facility] Comment on above: Performed By: #### B ANISH, CBCA #### [facility] ([id number]) [address] [place] [address] MCHC (RBC) [Mass/Vol] 33.8 g/dL Normal 32-36 [facility] Comment on above: Performed By: #### B ANISH, CBCA #### [facility] ([id number]) [address] [place] [address] 9[address]75 MCV (RBC) [Entitic vol] 90 fL Normal 80-100 [facility] Comment on above: Performed By: #### B ANISH, CBCA #### [facility] ([id number]) [address] [place] [address]350 Monocytes (Bld) [#/Vol] 0.5 10*3/uL Normal 0-0.9 [facility] Comment on above: Performed By: #### B MP, CBCA #### [facility] ([id number]) [address] [place] [address] 53924 Monocytes/100 WBC (Bld) 5.3 % Normal [facility] Comment on above: Performed By: #### B MP, CBCA #### [facility] ([id number]) [address] [place] [address] Neutrophils/100 WBC (Bld) 61.2 % Normal [facility] Comment on above: Performed By: #### B MP, CBCA #### [facility] ([id number]) [address] [place] [address] 93101 Platelet mean volume (Bld) [Entitic vol] 9.8 fL Normal 7-12 [facility] Comment on above: Performed By: #### B MP, CBCA #### [facility] ([id number]) [address] [place] [address] Platelets (Bld) [#/Vol] 82 10*3/uL Low 150-450 [facility] Comment on above: Performed By: #### B ANISH, CBCA #### [facility] ([id number]) [address] [place] [address] RBC COUNT 4.10 X10E12/L Normal 3.80-5.20 [facility] Comment on above: Performed By: #### B ANISH, CBCA #### [facility] ([id number]) [address] [place] [address] 98896 WBC (Bld) [#/Vol] 8.9 10*3/uL Normal 4.0-11.0 [facility] Comment on above: Performed By: #### B MP, CBCA #### [facility] ([id number]) [address] [place] [address] ABDOMEN AND PELVIS WO CON Ton [...] Us MD on 01/14/2024 8:23 AM Normal [facility] HCG ( test) Ql (U)o n 01-14-2024 Beta HCG ( test) Ql (U) Negative Normal NEG [facility] Comment on above: Performed By: #### 2 106-3 #### [facility] ([id number]) [address] [place] [address] UA (MICROSCOPIC)on 4 CA OXALATE CRYSTALS PRESENT Abnormal NONE [facility] Comment on above: Performed By: #### U VY #### [facility] ([id number]) [address] [place] [address] 88640 R.B.CELLS >100 High 0-5 [facility] Comment on above: Performed By: #### U VY #### [facility] ([id number]) [address] [place] [address] 72879 SQUAMOUS EPITHELIUM PRESENT Normal 0-5 [facility] Comment on above: Performed By: #### U VY #### [facility] ([id number]) [address] [place] [address] 91156 Urinalysis dipstick W Reflex Microscopic panel (U) Results maybe affected due to High RBC count, interpretwith caution. Normal [facility] Comment on above: Performed By: #### U VY #### [facility] ([id number]) [address] [facility] [place], [place] [address] W.B.CELLS PRESENT Normal 0-5 [facility] Comment on above: Performed By: #### U YV #### [facility] ([id number]) [address] [place] [address], [place] [address] Family Medicine Office/Clini c Noteon 12-23-2023 Family [...] day(s), # 21 tab(s), Refills(s) 0, Pharmacy: [facility]/pharmacy #[id number], 157, cm, 12/23/23 10:52:00 EDT, Height/Length Dosing, 88.5, kg, 12/23/23 10:52:00 EDT, Weight Dosing 3. BMI 35.0-35.9,adult (Z68.35: Body mass index [BMI] 35.0-35.9, adult) bmi education given Ordered: methylPREDNISolone, = 1 packet(s), Oral, As Directed, as directed on package labeling, X 6 day(s), # 21 tab(s), Refills(s) 0, [id number] 157, cm, 12/23/23 10:52:00 EDT, Height/Length [...] malignant neoplasm of female breast: Mother. Normal [facility] Comment on above: Result Comment: Elec tronically Signed By: Yocasta Vidal\Date and Time Signed: 12/23/23 11:08 EDT Provider Letteron 12-23-2023 Provider Letter Provider Letter December 23, 2023 NICOLEMAR MURILLOCARTER [address] [place] [address] : 1990 To Whom It May Concern, Please excuse above patient from work. Date of Illness: 12/23/2023 May Return to Work On: 12/24/2023 Sincerely, [address] [address] Normal [facility] Laboratory Outside Office Co pyon 10-30-2023 Laboratory Outside Office Copy [id number]# 1.00TIFF Normal [facility] Laboratory Outside Office Copy [id number] #1.00TIFF Normal [facility] Outside Radiologyon 10-29-19 Outside Radiology [id number] 8#1.00TIFF Normal [facility] Physician Orderon 10-29-2023 Physician Order [id number] 9#1.00TIFF Normal [facility] RAD - Ultrasound Reporton RAD - Ultrasound Report [id number] #1.00TIFF Normal [facility] RAD - MISCon 10-21-2023 RAD - MISC [id number] #1.00TIFF Normal [facility] Oncology Progress Noteon Oncology Progress Note Chief Complaint New patient Thrombocytopenia; no concerns Diagnoses Thrombocytopenia (D69.6: Thrombocytopenia, unspecified) Thrombocytosis (D75.839: Thrombocytosis, unspecified) Oncological History/ROS/PE/Asses sment and Plan HPI 33-year-old female referred for thrombocytopenia by her primary care provider Yocasta [facility]ari [facility]. Medical history includes depression, anxiety, hypertension, reflux. Outpatient medications include atenolol, gabapentin, Celexa, Prilosec, albuterol as needed. 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 Review of CBC from September 17, [...] When Contact Information Brody Weston DO, ONC [facility] [address] [place] [address] [phone] Fax Business (1) Additional Instructions: weekly cbc, [...] % 10/09/23 Lymph Auto 34.4 % 09/17/23 Dyer Auto 4.6 % 10/09/23 Dyer Auto 4.6 % 09/17/23 Eos Auto 4.6 % 10/09/23 Eos Auto 3.7 % 09/17/23 Basophil Auto 0.7 % 10/09/23 Basophil Auto 0.6 % 09/17/23 Neutro Absolute 3.1 E9/L 10/09/23 Neutro Absolute 4.7 E9/L 09/17/23 Lymph Absolute 2 E9/L 10/09/23 Lymph Absolute 2.9 E9/L 09/17/23 Dyer Absolute 0.3 E9/L 10/09/23 Dyer Absolute 0.4 E9/L 09/17/23 Eos Absolute 0.3 [...] Bili Total (more content not included)... Normal [facility] Outside Labson 10-17-2023 Outside Labs [id number] 4#1.00TIFF Normal [facility] Consent for Treatmenton 09-24 Consent for Treatment [id number] #1.00TIFF Normal [facility] Eduon 10-16-2023 [facility] Oncology Bone Marrow Aspiration and Bone [...] including vitamins, herbs, eye drops, creams, and irxr-ofb-hauqnev medicines. ? Any problems you or family [...] tells you to take them. ? Taking vmok-rrm-iixuwms medicines, vitamins, herbs, and supplements. General instructions [...] procedure, te (more content not included)... Normal [facility] HIPAA Forms Officeon 024 HIPAA Forms Office [id number]# 1.00TIFF Normal [facility] Outside Labson 10-16-2023 Outside Labs [id number] 9#1.00TIFF Normal [facility] Physician Orderon 10-16-2023 Physician Order [id number] 80#1.00TIFF [facility] Physician Orderon 10-15-2023 Physician Order [id number] 8#1.00TIFF [facility] Path. Reviewon 10-10-2023 Path Review Peripheral Blood Smear: Invalid Interpretation Code [facility] Comment on above: Order Comment: Order added by Discern Expert Performed By: #### 1 [id number] ####[facility] [address] [place] [address] Path. Review Peripheral Blood Smear: - RBCs: Normochromic and normocytic - WBCs: Within normal limits - Platelet: Decreased Invalid Interpretation Code [facility] Comment on above: Other Comment: Order added [...] Mouth 2 times a day Pickup at [facility]/pharmacy #[id number] Unchanged atenolol (atenolol 25 mg Tab) 1 [...] Capsules By Mouth Every day Pharmacy Information [facility]/pharmacy #[id number]: [address] [place], [place] [id number] [phone] Allergies Zoloft (Unknown) predniSONE (Unknown) Problems Ongoing [...] for choosing us for your care. Normal [facility] CBC w/ Auto Diffon 4 Basophils/100 WBC (Bld) 0.7 % Normal 0.0-2.0 [facility] Comment on above: Performed By: #### 2 [id number] #### [facility] Laboratory [address] [place] [address] Basophils/Leukocytes Auto (Bld) [Pure # fraction] 0.0 E9/L Normal 0.0-0.2 [facility] Comment on above: Performed By: #### 2 [id number] #### [facility] Laboratory [address] [place] [address] Eosinophils (Bld) [#/Vol] 0.3 E9/L Normal 0.0-0.5 [facility] Comment on above: Performed By: #### 2 [id number] #### [facility] Laboratory [address] [place] [address] Eosinophils/100 WBC (Bld) 4.6 % Normal 0.0-8.0 [facility] Comment on above: Performed By: #### 2 [id number] #### [facility] Laboratory [address] [place] [address] Erythrocyte distribution width (RBC) [Ratio] 13.6 % Normal 10.9-14.2 [facility] Comment on above: Performed By: #### 2 [id number] #### [facility] Laboratory [address] [place] [address] Hematocrit (Bld) [Volume fraction] 39.5 % Normal 34.0-46.0 [facility] Comment on above: Performed By: #### 2 [id number] #### [facility] Laboratory [address] [place] [address] Hemoglobin (Bld) [Mass/Vol] 13.4 g/dL Normal 12.0-16.0 [facility] Comment on above: Performed By: #### 2 [id number] #### [facility] Laboratory [address] [place] [address] Lymphocytes (Bld) [#/Vol] 2.0 E9/L Normal 1.0-4.0 [facility] Comment on above: Performed By: #### 2 [id number] #### [facility] Laboratory [address] [place] [address] Lymphocytes/100 WBC (Bld) 35.9 % Normal 14.0-50.0 [facility] Comment on above: Performed By: #### 2 815857 #### [facility] Laboratory [address] [place] [address] MCH (RBC) [Entitic mass] 30.9 pg Normal 27.0-34.0 [facility] Comment on above: Performed By: #### 2 889937 #### [facility] Laboratory [address] [place] [address] MCHC (RBC) [Mass/Vol] 34.0 g/dL Normal 31.4-36.0 [facility] Comment on above: Performed By: #### 2 853813 #### [facility] Laboratory [address] [place] [address] MCV (RBC) [Entitic vol] 90.9 fL Normal 80.0-100.0 [facility] Comment on above: Performed By: #### 2 774517 #### [facility] Laboratory [address] [place] [address] Monocytes (Bld) [#/Vol] 0.3 E9/L Normal 0.2-1.0 [facility] Comment on above: Performed By: #### 2 326885 #### [facility] Laboratory [address] [place] [address] Neutrophils (Bld) [#/Vol] 3.1 E9/L Normal 2.0-7.5 [facility] Comment on above: Performed By: #### 2 739600 #### [facility] Laboratory [address] [place] [address] Neutrophils/100 WBC (Bld) 54.2 % Normal 36.0-75.0 [facility] Comment on above: Performed By: #### 2 647243 #### [facility] Laboratory [address] [place] [address] Platelet mean volume (Bld) [Entitic vol] 10.1 fL Normal 6.4-10.8 [facility] Comment on above: Performed By: #### 2 510822 #### [facility] Laboratory [address] [place] [address] Platelets (Bld) [#/Vol] 33.0 E9/L Abnormal 150.0-500.0 [facility] Comment on above: Result Comment: Resu lts called to DR. MICHELLE by [id number] and read back on 10/09/2023 19:59:47. Performed By: #### 2 864752 #### [facility] Laboratory [address] [place] [address] RBC (Bld) [#/Vol] 4.3 E12/L Normal 4.3-5.9 [facility] Comment on above: Performed By: #### 2 479673 #### [facility] Laboratory [address] [place] [address] RBC size Nom (Bld) NORMAL Invalid Interpretation Code [facility] Comment on above: Performed By: #### 2 052715 #### [facility] Laboratory [address] [place] [address] WBC corrected for nucl RBC Auto (Bld) [#/Vol] 5.7 E9/L Normal 4.0-11.0 [facility] Comment on above: Performed By: #### 2 461027 #### [facility] Laboratory [address] [place] [address] CHEMISTRYOrdered By: SYSTEM SYSTEM on 10-09-2023 Iron [...] first if no relief will refer to [facility] pain management for possible injection. 3. [...] bedtime), # 30 cap(s), Refills(s) 0, Pharmacy: [facility]/pharmacy #[id number], 157.4, cm, 09/17/23 10:18:00 EDT, Height/Length Dosing, 89.1, kg, 09/17/23 10:18:00 EDT, Weight Dosing gabapentin, 300 mg = 1 cap(s), Oral, BID, # 60 cap(s), Refills(s) 0, Pharmacy: [facility]/pharmacy #[id number], 157.4, cm, 10/09/23 10:28:00 EDT, Height/Length [...] malignant neoplasm of female breast: Mother. Normal [facility] Comment on above: Result Comment: Elec tronically [...] Resu lts called to DR. MICHELLE by [id number] and read back on 10/09/2023 19:59:47. RBC (Bld) [#/Vol] 4.3 E12/L Normal 4.3 - 5.9 E12/L Remisol Heme RBC size Nom (Bld) NORMAL *NA* (10/09/23 10:59 AM) Invalid Interpretation Code Remisol Heme WBC corrected for nucl RBC Auto (Bld) [#/Vol] 5.7 E9/L Normal 4.0 - 11.0 E9/L Remisol Heme Ironon 10-09-2023 Iron [Mass/Vol] 86 microgram/dL Normal 35-153 [facility] Comment on above: Performed By: #### 2 776839 #### [facility] Laboratory [address] [place] [address] TIBC Calculatedon 10-09-2023 Iron binding capacity [Mass/Vol] 357 microgram/dL Normal 250-400 [facility] Comment on above: Performed By: #### 1 [id number] #### [facility] Laboratory [address] [place] [address] Transferrin [Mass/Vol] 255 mg/dL Normal 200-370 [facility] Comment on above: Performed By: #### 1 [id number] #### [facility] Laboratory [address] [facility] [place] [place] [address] Outside Mammographyon 2023 Outside Mammography [id number] #1.00TIFF Normal [facility] RAD - MISCon 09-24-2023 RAD - MISC [id number] #1.00TIFF Normal [facility] Reminderson 09-18-2023 Reminders - From: Yocasta Vidal [...] 34.4 % (14.0 - 50.0) 09/17/2023 10:41 Dyer Auto 4.6 % (4.0 - 14.0) 09/17/2023 10:41 Eos Auto 3.7 % (0.0 - 8.0) 09/17/2023 10:41 Basophil Auto 0.6 % (0.0 - 2.0) 09/17/2023 10:41 Neutro Absolute 4.7 E9/L (2.0 - 7.5) 09/17/2023 10:41 Lymph Absolute 2.9 E9/L (1.0 - 4.0) 09/17/2023 10:41 Dyer Absolute 0.4 E9/L (0.2 - 1.0) 09/17/2023 [...] 5.60) Patient informed and voices understanding. Normal [facility] Ambulatory Visit Summaryon 0 09-17-2023 Ambulatory Visit [...] 10:20 AM EDT With: Yocasta Vidal Where: [facility] [place] Normal [facility] CBC w/ Auto Diffon 4 Basophils/100 WBC (Bld) 0.6 % Normal 0.0-2.0 [facility] Comment on above: Performed By: #### 1 7237849, 9780317, 5337411, 9171001, 5042298 ####[address] [place] [address] Basophils/Leukocytes Auto (Bld) [Pure # fraction] 0.1 E9/L Normal 0.0-0.2 [facility] Comment on above: Performed By: #### 1 9527399, 8697161, 1229425, 4361672, 6654939 ####[facility] [address] [place] [address] Eosinophils (Bld) [#/Vol] 0.3 E9/L Normal 0.0-0.5 [facility] Comment on above: Performed By: #### 1 6856159, 8331282, 4714089, 8501548, 6157445 ####[address] [address] Eosinophils/100 WBC (Bld) 3.7 % Normal 0.0-8.0 [facility] Comment on above: Performed By: #### 1 8725161, 0443062, 3911308, 1454882, 3037579 ####[facility] [address] [place] [address] Erythrocyte distribution width (RBC) [Ratio] 13.8 % Normal 10.9-14.2 [facility] Comment on above: Performed By: #### 1 9149558, 7281178, 6683244, 1300676, 4047418 ####[address] [address] Hematocrit (Bld) [Volume fraction] 40.9 % Normal 34.0-46.0 [facility] Comment on above: Performed By: #### 1 5706263, 7533808, 6404390, 5419419, 2541353 ####[facility] [address] [place] [address] Hemoglobin (Bld) [Mass/Vol] 13.6 g/dL Normal 12.0-16.0 [facility] Comment on above: Performed By: #### 1 4971071, 3257376, 2463629, 9343959, 1369964 ####[address] [place] [address] Lymphocytes (Bld) [#/Vol] 2.9 E9/L Normal 1.0-4.0 [facility] Comment on above: Performed By: #### 1 5497084, 0489996, 1220972, 7050943, 6927916 ####[address] [address] Lymphocytes/100 WBC (Bld) 34.4 % Normal 14.0-50.0 [facility] Comment on above: Performed By: #### 1 8106902, 6562796, 1542644, 0342444, 0395561 ####[address] [address] MCH (RBC) [Entitic mass] 30.7 pg Normal 27.0-34.0 [facility] Comment on above: Performed By: #### 1 3950597, 1493832, 0994575, 3788834, 6712449 ####[facility] [address] [place] [address] MCHC (RBC) [Mass/Vol] 33.3 g/dL Normal 31.4-36.0 [facility] Comment on above: Performed By: #### 1 0890968, 3624840, 0774564, 8203257, 1662661 ####[address] [place] [address] MCV (RBC) [Entitic vol] 92.3 fL Normal 80.0-100.0 [facility] Comment on above: Performed By: #### 1 3946752, 4240160, 5741795, 0718954, 0110031 ####[address] [address] Monocytes (Bld) [#/Vol] 0.4 E9/L Normal 0.2-1.0 [facility] Comment on above: Performed By: #### 1 9534791, 7153164, 1567075, 1293258, 3035555 ####[address] [address] Neutrophils (Bld) [#/Vol] 4.7 E9/L Normal 2.0-7.5 [facility] Comment on above: Performed By: #### 1 4353933, 4184838, 7779362, 4988597, 1367584 ####[address] [address] Neutrophils/100 WBC (Bld) 56.7 % Normal 36.0-75.0 [facility] Comment on above: Performed By: #### 1 2232264, 5106008, 5893010, 8293607, 1224643 ####[address] [address] Platelet mean volume (Bld) [Entitic vol] 9.8 fL Normal 6.4-10.8 [facility] Comment on above: Performed By: #### 1 3927678, 1193135, 6913884, 4223731, 8397458 ####[address] [address] Platelets (Bld) [#/Vol] 70.0 E9/L Low 150.0-500.0 [facility] Comment on above: Performed By: #### 1 8601221, 0526941, 9166035, 1995932, 3883382 ####[address] [address] RBC (Bld) [#/Vol] 4.4 E12/L Normal 4.3-5.9 [facility] Comment on above: Performed By: #### 1 8978676, 1074956, 1795254, 4596424, 2524432 ####[facility] [address] [place] [address] WBC corrected for nucl RBC Auto (Bld) [#/Vol] 8.3 E9/L Normal 4.0-11.0 [facility] Comment on above: Performed By: #### 1 3496215, 1081595, 9310635, 0988727, 4592373 ####[facility] [address] [place] [address] CHEMISTRYOrdered By: SYSTEM SYSTEM on 09-17-2023 Albumin [...] 09-17-2023 Albumin [Mass/Vol] 4.0 g/dL Normal 3.3-5.0 [facility] Comment on above: Performed By: #### 1 7092478, 5761065, 2044865, 4944485, 2804731 ####[facility] [address] [place] [address] Albumin/Globulin (S) [Mass conc ratio] 1.3 Normal 1.1-2.2 [facility] Comment on above: Performed By: #### 1 4874918, 0679884, 5706060, 0621629, 3333628 ####[facility] [address] [place] [address] ALP [Catalytic activity/Vol] 66 Int._Unit/L Normal 21-98 [facility] Comment on above: Performed By: #### 1 8003033, 7445650, 4122747, 9903613, 8903521 ####[facility] [address] [place] [address] ALT No additional P-5'-P [Catalytic activity/Vol] 12 Int._Unit/L Normal 6-46 [facility] Comment on above: Performed By: #### 1 2354644, 9381659, 6901365, 7856530, 9378541 ####[facility] [address] [place] [address] AST [Catalytic activity/Vol] 11 Int._Unit/L Normal 5-43 [facility] Comment on above: Performed By: #### 1 2126359, 7842230, 4751614, 9900705, 5747032 ####[facility] [address] [place] [address] Bilirubin [Mass/Vol] 0.5 mg/dL Normal 0.0-1.1 [facility] Comment on above: Performed By: #### 1 8471467, 8648147, 1043308, 2634615, 5560742 ####[address] [place] [address] Globulin (S) [Mass/Vol] 3.2 g/dL Normal 1.4-4.0 [facility] Comment on above: Performed By: #### 1 2703539, 2818869, 0015031, 9086226, 9832087 ####[facility] [address] [place] [address] Protein [Mass/Vol] 7.2 g/dL Normal 6.0-7.8 [facility] Comment on above: Performed By: #### 1 2411566, 6340309, 5291681, 5671274, 4011648 ####[facility] [address] [place] [address] Anion gap [Moles/Vol] 10 mmol/L Normal 6-16 [facility] Comment on above: Performed By: #### 1 4248287, 2558965, 3338369, 9797776, 7141696 ####[facility] [address] [place] [address] Calcium [Mass/Vol] 9.3 mg/dL Normal 8.9-11.1 [facility] Comment on above: Performed By: #### 1 8001199, 9580868, 0789409, 3466475, 9101607 ####[facility] [address] [place] [address] Chloride [Moles/Vol] 104 mmol/L Normal 101-111 [facility] Comment on above: Performed By: #### 1 4822899, 9040686, 9328846, 7990095, 9184370 ####[facility] [address] [place] [address] CO2 [Moles/Vol] 27 mmol/L Normal 21-31 [facility] Comment on above: Performed By: #### 1 9794489, 6923324, 2683530, 6705039, 8986083 ####[facility] [address] [place] [address] Creatinine [Mass/Vol] 0.7 mg/dL Normal 0.5-1.3 [facility] Comment on above: Performed By: #### 1 0562592, 1731025, 4140891, 3577246, 3007918 ####[facility] [address] [place] [address] Glucose [Mass/Vol] 91 mg/dL Normal 55-199 [facility] Comment on above: Performed By: #### 1 2521724, 7791720, 1092807, 8363857, 7834476 ####[facility] [address] [place] [address] Potassium [Moles/Vol] 4.1 mmol/L Normal 3.5-5.3 [facility] Comment on above: Performed By: #### 1 1524287, 1341528, 1826047, 4187258, 6156006 ####[facility] [address] [place] [address] Sodium [Moles/Vol] 137 mmol/L Normal 135-145 [facility] Comment on above: Performed By: #### 1 8228370, 8166561, 1027462, 5601551, 9786096 ####[facility] [address] [place] [address] Urea nitrogen [Mass/Vol] 11 mg/dL Normal 5-21 [facility] Comment on above: Performed By: #### 1 3868712, 9800168, 2072461, 1316807, 4671126 ####[facility] [address] [place] [address] Urea nitrogen/Creatinine [Mass ratio] 16 No Units Normal 10-20 [facility] Comment on above: Performed By: #### 1 0498236, 1979513, 0206848, 4076332, 8891128 ####[facility] [address] [place] [address] Family Medicine Office/Clini c Noteon 09-17-2023 Family Medicine Office/Clinic Note HPI Staff Nicole is a 33 year old female presenting for yearly wellness Health Maintenance: Colonoscopy: n/a Dexa: n/a Mammo: 2022 normal, family hx mom with breast cancer. Would like order for [facility] Pap: May 2023 negative, Dr Geller in [place] Last Labs: nothing in the last year [...] Diff Comprehensive Metabolic Panel Lab Specimen Collect 21851 Lipid Panel Thyroid Stimulating Hormone 2. Breast cancer screening by mammogram (Z12.31: Encounter for screening mammogram for malignant neoplasm of breast) order for mammogram given Ordered: CBC w/ Auto Diff Comprehensive Metabolic Panel Lab Specimen Collect 50728 Lipid Panel Thyroid Stimulating Hormone 3. Non-smoker (Z78.9: Other specified health status) continue not smoking Ordered: Lab Specimen Collect 19525 4. Right elbow pain (M25.521: Pain in [...] BMI education complete Ordered: Lab Specimen Collect 37370 8. Fatigue (R53.83: Other fatigue) c/o fatigue Ordered: CBC w/ Auto Diff Comprehensive Metabolic Panel Lab Specimen Collect 26565 Lipid Panel Thyroid Stimulating Hormone Orders: amoxicillin, 875 mg = 1 tab(s), Oral, BID, X 7 day(s), # 14 tab(s), Refills(s) 0, Pharmacy: [facility]/pharmacy #[id number], 157.4, cm, 09/25/22 16:16:00 EDT, Height/Length Dosing, 93.3, kg, 09/25/22 16:16:00 EDT, Weight Dosing carisoprodol, 250 mg = 1 tab(s), Oral, Bedtime, PRN Insomnia, # 30 tab(s), Refills(s) 0, Pharmacy: [facility] #72, 157.4, cm, 09/25/22 16:16:00 EDT, Height/Length Dosing, 93.3, kg, 09/25/22 16:16:00 EDT, Weight Dosing celecoxib, 200 mg = 1 cap(s), Oral, Daily, # 90 cap(s), Refills(s) 0, Pharmacy: [facility] #72, 157.4, cm, 09/25/22 16:16:00 EDT, Height/Length Dosing, 93.3, kg, 09/25/22 16:16:00 EDT, Weight Dosing lorazepam, 0.5 mg = 1 tab(s), Oral, q12hr, PRN anxiety, # 20 tab(s), Refills(s) 0, Pharmacy: [facility] #72, 157.4, cm, 09/25/22 16:16:00 EDT, Height/Length Dosing, 93.3, kg, 09/25/22 16:16:00 EDT, Weight Dosing lorazepam, 0.5 mg = 1 tab(s), Oral, q12hr, PRN anxiety, # 20 tab(s), Refills(s) 0, Pharmacy: [facility]/pharmacy #[id number], 157.4, cm, 09/17/23 10:18:00 EDT, Height/Length [...] Family H (more content not included)... Normal [facility] Comment on above: Result Comment: Elec tronically [...] Lipid Panelon 09-17-2023 VLDL UTC Abnormal - [facility] Comment on above: Result Comment: 'GERRY BLE TO REPORT. TRIG > 400 mg/dl' Result verified by Discern Rule. Performed result UT (Unable to Calculate) was sent as an Alpha code due the inability to calculate a valid numeric value. Performed By: #### 1 9934047, 1789646, 2748145, 9268517, 9515309 ####[facility] [address] [place] [address] Cholesterol [Mass/Vol] 171 mg/dL Normal 120-200 [facility] Comment on above: Performed By: #### 1 6245820, 8065410, 8255491, 6136850, 4029998 ####[facility] [address] [place] [address] Cholesterol in HDL [Mass/Vol] 35 mg/dL Invalid Interpretation Code [facility] Comment on above: Result Comment: '>= 60 LOW RISK' '<= 40 HIGH RISK' Performed By: #### 1 9984047, 7808875, 1789644, 0297503, 0930399 ####[facility] [address] [place] [address] Cholesterol in LDL [Mass/Vol] 64 mg/dL Normal <=129 [facility] Comment on above: Performed By: #### 1 5826058, 2287211, 6123417, 9836053, 1629295 ####[facility] [address] [place] [address] Triglyceride [Mass/Vol] 602 mg/dL High <=149 [facility] Comment on above: Performed By: #### 1 0565515, 4610471, 2989599, 7986823, 1301282 ####[facility] [address] [place] [address] Medication Consenton 024 Medication Consent [id number] #1.00TIFF Normal [facility] Physician Orderon 09-17-2023 Physician Order [id number] #1.00TIFF Normal [facility] TSHon 09-17-2023 TSH Qn 2.10 m[IU]/L Normal 0.34-5.60 [facility] Comment on above: Performed By: #### 1 2115998, 5929019, 7484469, 0440602, 1994593 ####[facility] [address] [place] [address] eGFRon 09-17-2023 eGFR 116 mL/min/1.73 m2 Normal >=59 [facility] Comment on above: Order Comment: Order added by Discern Expert. Performed By: #### 1 3891153, 3482720, 6156285, 6915311, 0951091 ####[facility] [address] [place] [address] Provider Letteron 03-25-2023 Provider Letter March 25, 2023 NICOLE CARTER [address] [place] [id number] : 1990 To Whom It May Concern, Please excuse above patient from work today 03-25-23 due to daughters illness. Date of Illness: From: _03-25-23 To: _ 10-31-23 May Return to Work On:03-26-23 Restrictions: _ Comments: _ Sincerely, [facility] [address] [place] [address] [facility] Provider Letter March 25, 2023 NICOLE CARTER [address] [place] [address] : 1990 To Whom It May Concern, Please excuse above patient from work today 03-25-23 due to daughters illness. Date of Illness: From: 03-25-23 To: 03-25-23 May Return to Work On:03-26-23 Restrictions: _ Comments: _ Sincerely, [facility] Consultation Noteon 12-12-19 Consultation Note [id number] #1.00CD:127 [facility] COVID Quick Testingon 2022 Result Negative [email or web address] Other CBC AUTO DIFFon 01-01-2019 Basophils (Bld) [#/Vol] 0.0 103/ul Normal 0.0-0.1 [facility] Comment on above: Performed By: #### C BC #### [facility] [address] [place], [place] [address] Ephraim Brandi Basophils/100 WBC (Bld) 0.6 % Normal 0.2-2.0 [facility] Comment on above: Performed By: #### C BC #### [facility] [address] [place], [place] [address] Ephraim Brandi Eosinophils (Bld) [#/Vol] 0.4 103/ul Normal 0.0-0.7 [facility] Comment on above: Performed By: #### C BC #### [facility] [address] [place], [place] [address] Ephraim Brandi Eosinophils/100 WBC (Bld) 5.7 % Normal 0.9-7.0 [facility] Comment on above: Performed By: #### C BC #### [facility] Laboratory [address] [place], [place] [address] Ephraim Brandi Erythrocyte distribution width (RBC) [Ratio] 12.8 % Normal 11.0-15.0 [facility] Comment on above: Performed By: #### C BC #### [facility] Laboratory [address] [place], [place] [address] Ephraim Brandi Hematocrit (Bld) [Volume fraction] 42.9 % Normal 36.0-48.0 [facility] Comment on above: Performed By: #### C BC #### [facility] [address] [place], [place] [address] Ephraim Brandi Hemoglobin (Bld) [Mass/Vol] 14.2 g/dL Normal 12.0-16.0 [facility] Comment on above: Performed By: #### C BC #### [facility] Laboratory [address] [place] [address] Ephraim Brandi IG # 0.02 10e3/ul Normal 0.00-0.03 [facility] Comment on above: Performed By: #### C BC #### [facility] [address] [place] [address] Ephraim Brandi IG % 0.3 % Normal 0.0-0.5 [facility] Comment on above: Performed By: #### C BC #### [facility] [address] [place], [place] [address] Ephraim Brandi Lymphocytes (Bld) [#/Vol] 2.5 103/ul Normal 1.2-3.8 [facility] Comment on above: Performed By: #### C BC #### [facility] [address] [place], [place] [id number] Ephraim Brandi Lymphocytes/100 WBC (Bld) 34.7 % Normal 20.5-60.0 The [facility] Comment on above: Performed By: #### C BC #### [facility] [address] [place], [place] [phone] Ephraim Brandi MANUAL DIFF REQ NO Normal The [facility] Comment on above: Performed By: #### C BC #### [facility] [address] [place], [place] [phone] Ephraim Brandi MCH (RBC) [Entitic mass] 31.8 pg Normal 26.7-34.0 The [facility] Comment on above: Performed By: #### C BC #### [facility] [address] [place], [place] [phone] Ephraim Paz MCHC (RBC) [Mass/Vol] 33.1 g/dL Normal 29.9-35.2 The [facility] Comment on above: Performed By: #### C BC #### [facility] [address] [place], [place] [phone] Ephraimmi Paz MCV (RBC) [Entitic vol] 96.0 fL Normal 81.0-99.0 The [facility] Comment on above: Performed By: #### C BC #### [facility] [address] [place], [place] [phone] Ephraim Brandi Monocytes (Bld) [#/Vol] 0.4 103/ul Normal 0.3-0.8 The [facility] Comment on above: Performed By: #### C BC #### [facility] [address] [place], [place] [phone] Ephraimmi Paz Monocytes/100 WBC (Bld) 5.4 % Normal 1.7-12.0 The [facility] Comment on above: Performed By: #### C BC #### [facility] [address] [place], [place] [phone] Ephraim Brandi Neutrophils (Bld) [#/Vol] 3.8 103/ul Normal 1.4-6.5 The [facility] Comment on above: Performed By: #### C BC #### [facility] [address] [place], [place] [phone] Ephraim Brandi Neutrophils/100 WBC (Bld) 53.3 % Normal 43.0-75.0 The [facility] Comment on above: Performed By: #### C BC #### [facility] [address] [place], [place] [phone] Ephraim Brandi Platelet mean volume (Bld) [Entitic vol] 10.5 fL Normal 9.5-13.5 The [facility] Comment on above: Performed By: #### C BC #### [facility] [address], [place] [address] Ephraim Brandi Platelets (Bld) [#/Vol] 156 103/ul Normal 150-450 The [facility] Comment on above: Performed By: #### C BC #### [facility] [address], [place] [address] Ephraim Brandi RBC (Bld) [#/Vol] 4.47 106/ul Normal 4.20-5.40 The [facility] Comment on above: Performed By: #### C BC #### [facility] [address], [place] [address] Ephraim Brandi WBC (Bld) [#/Vol] 7.2 103/ul Normal 4.0-11.0 The [facility] Comment on above: Performed By: #### C BC #### [facility] [address] [place] [address] Ephraim Brandi PROF CHEM 8 (BAS METB)on Anion gap [Moles/Vol] 8.2 mmol/L Normal [facility] Comment on above: Performed By: #### B MP #### [facility] [address] [place] [address] Ephraim Brandi Calcium [Mass/Vol] 9.6 mg/dL Normal 8.4-10.2 The [facility] Comment on above: Performed By: #### B MP #### [facility] [address] [place] [address] Ephraim Brandi Chloride [Moles/Vol] 105 mmol/L Normal 98-107 The [facility] Comment on above: Performed By: #### B MP #### [facility] [address] [place] [address] Ephraim Brandi CO2 [Moles/Vol] 29.8 mmol/L Normal 22.0-30.0 The [facility] Comment on above: Performed By: #### B MP #### [facility] [address] [place] [address] Ephraim Brandi Creatinine [Mass/Vol] 0.71 mg/dL Normal 0.52-1.04 The [facility] Comment on above: Performed By: #### B MP #### [facility] [address], [place] [address] Ephraim Brandi EGFR-AF PANAMANIAN >60 Normal >=60 The [facility] Comment on above: Performed By: #### B MP #### [facility] [address] [place] [id number] Ephraim Brandi EGFR-NON AF PANAMANIAN >60 Normal >=60 [facility] Comment on above: Performed By: #### B MP #### [facility] [address] [id number] Ephraim Brandi Glucose [Mass/Vol] 90 mg/dL Normal 74-106 [facility] Comment on above: Performed By: #### B MP #### [facility] [address] [place] [address] Ephraim Brandi Potassium [Moles/Vol] 4.0 mmol/L Normal 3.4-5.0 [facility] Comment on above: Performed By: #### B MP #### [facility] [address] [place] [address] Ephraim Brandi Sodium [Moles/Vol] 139 mmol/L Normal 137-145 [facility] Comment on above: Performed By: #### B MP #### [facility] [address] [place] [address] Ephraim Brandi Urea nitrogen [Mass/Vol] 9.0 mg/dL Normal 7.0-17.0 [facility] Comment on above: Performed By: #### B MP #### [facility] [address] [place], [place] [phone] Ephraim Brandi Urea nitrogen/Creatinine [Mass ratio] 12.7 mg/mg Normal [facility] Comment on above: Performed By: #### B MP #### [facility] [address] [place], [place] [phone] Ephraim Brandi Vital Signs Date Time Vital Sign Value Performing Clinician Facility 11-20-2023 09:45-0400 Body temperature 97.88 [degF] Brody Weston [facility] 11-20-2023 09:45-0400 Diastolic blood pressure 71 mm[Hg] [facility]-20-2023 09:45-0400 Heart rate 96 /min [facility]-20-[facility]23 09:45-0400 Mean blood pressure 85 mm[Hg] Located Within [facility] 11-20-2023 09:45-0400 Respiratory rate 16 /min [facility] 11-20-2023 09:45-0400 SaO2% (BldA) [Mass fraction] 99 % [facility] 11-20-2023 09:45-0400 Systolic blood pressure 112 mm[Hg] [facility] 10-16-2023 09:12-0400 Body temperature 98.06 [degF] [facility] 10-16-2023 09:12-0400 Diastolic blood pressure 75 mm[Hg] [facility] 10-16-2023 09:12-0400 Heart rate 90 /min [facility] 10-16-2023 09:12-0400 Mean blood pressure 85 mm[Hg] [facility]-16-2023 09:12-0400 Respiratory rate 16 /min [facility] 10-16-2023 09:12-0400 SaO2% (BldA) [Mass fraction] 98 % [facility] 10-16-2023 09:12-0400 Systolic blood pressure 106 mm[Hg] [facility] 07-17-2023 13:04-0500 Body height 156.2 cm [facility] 07-17-2023 13:04-0500 Body mass index (BMI) [Ratio] 36.62 kg/m2 [facility] 07-17-2023 13:04-0500 Body weight 89.36 kg [facility] 07-17-2023 13:04-0500 Diastolic blood pressure 76 mm[Hg] [facility] 07-17-2023 13:04-0500 Systolic blood pressure 110 mm[Hg] [facility] 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 [facility] 12-10-2022 13:55-0400 Body height 157.48 cm Letha Herring Other [email or web address] Other 12-10-2022 13:55-0400 Body mass index (BMI) [Ratio] 37.86 kg/m2 Letha Herring Other [email or web address] Other 12-10-2022 13:55-0400 Body temperature 97.7 [degF] Letha Herring Other [email or web address] Other 12-10-2022 13:55-0400 Body weight 93.9 kg Letha Herring Other [email or web address] Other 12-10-2022 13:55-0400 Diastolic blood pressure 85 mm[Hg] Letha Herring Other [email or web address] Other 12-10-2022 13:55-0400 Respiratory rate 18 /min Letha Herring Other [email or web address] Other 12-10-2022 13:55-0400 SaO2% (BldA) [Mass fraction] 100 % Letha Herring Other [email or web address] Other 12-10-2022 13:55-0400 Systolic blood pressure 122 mm[Hg] Letha Herring Other [email or web address] Other 08-29-2022 10:00-0400 Body height 157.48 cm Crista Hernandez Other [email or web address] Other 08-29-2022 10:00-0400 Body mass index (BMI) [Ratio] 36.03 kg/m2 Crista Hernandez Other [email or web address] Other 08-29-2022 10:00-0400 Body temperature 97.3 [degF] Crista Hernandez Other [email or web address] Other 08-29-2022 10:00-0400 Body weight 89.36 kg Crista Hernandez Other [email or web address] Other 08-29-2022 10:00-0400 Respiratory rate 18 /min Crista Hernandez Other [email or web address] Other 08-29-2022 10:00-0400 SaO2% (BldA) [Mass fraction] 98 % Crista Hernandez Other [email or web address] Other Encounters Encounter Date Encounter Type Care Provider Facility Start: 01-16-2024 End: 01-16-2024 ambulatory SAFETY CLOTHING AND EQUIPMENT DEVELOPER Yocasta L Coty Facility:[facility] Start: 01-16-2024 End: 01-16-2024 Lab Drop off Yocasta L Coty [facility] Start: 01-16-2024 End: 01-16-2024 ambulatory SAFETY CLOTHING AND EQUIPMENT DEVELOPER Yocasta L Coty Facility:[facility] Sadie byrd Start: 01-14-2024 End: 01-15-2024 Emergency department patient visit DEVANG TREJO [facility] Start: 12-23-2023 End: 12-23-2023 ambulatory SAFETY CLOTHING AND EQUIPMENT DEVELOPER Yocasta L Coty Facility:[facility] Sadie byrd Start: 11-20-2023 End: 11-20-2023 ambulatory Brody Weston Facility:[facility] Start: 11-20-2023 End: 11-20-2023 Patient encounter procedure Brody Weston [facility] Start: 10-23-2023 ambulatory Brody Weston Facil ity:[facility] Start: 10-16-2023 End: 10-16-2023 ambulatory Brody Weston Facility:[facility] Start: 10-16-2023 End: 10-16-2023 Patient encounter procedure Brody Weston [facility] Start: 10-09-2023 End: 10-10-2023 ambulatory Yocasta L Coty Facility:[facility] Start: 10-09-2023 End: 10-09-2023 Lab Drop off Yocasta L Coty [facility] Start: 10-09-2023 End: 10-09-2023 ambulatory SAFETY CLOTHING AND EQUIPMENT DEVELOPER Yocasta L Coty Facility:[facility] Sadie blackwoode Start: 09-17-2023 End: 09-17-2023 Lab Drop off Yocasta L Coty [facility] Start: 09-17-2023 End: 09-17-2023 ambulatory SAFETY CLOTHING AND EQUIPMENT DEVELOPER Yocasta L Coty Facility:[facility] Start: 07-30-2023 End: 07-30-2023 ambulatory SAFETY CLOTHING AND EQUIPMENT DEVELOPER Yocasta L Coty Facility:[facility] Sadie blackwoode Start: 07-17-2023 End: 07-17-2023 ambulatory BUENA PARK Joann [facility] Start: 07-17-2023 Encounter for gynecological examination (general) (routine) without abnormal findings [facility] Start: 07-17-2023 End: 07-17-[address] [facility] Start: 07-17-2023 End: 07-17-2023 Periodic preventive med est patient 18-39 yrs [facility] Ob 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 [facility] Comment on above: Well woman exam with routine gynecological exam (Primary Dx); Family hx-breast malignancy; At high risk for breast cancer; Standardized adult depression screening tool completed Start: 12-10-2022 End: 12-10-2022 ambulatory Letha Herring Other [email or web address] Other Start: 12-10-2022 Office outpatient vi sit 15 minutes Letha Herring [facility] Start: 12-09-2022 ambulatory SAFETY CLOTHING AND EQUIPMENT DEVELOPER Yocasta Ansari Facilit y:[facility] Start: 08-29-2022 End: 08-29-2022 ambulatory Crista Hernandez Other [email or web address] Other Start: 08-29-2022 Office outpatient vi sit 15 minutes Crista Hernandez [facility] Start: 01-01-2019 End: 01-02-2019 Patient encounter procedure DANA RAMIREZ Facility:[facility] Procedures Date Procedure Procedure Detail Performing Clinician Start: 07-17-2023 Adult depression scr eening assessment [facility] 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 Start: 05-23-2021 Microscopic observat ion [Identifier] in Cervix by Cyto stain [facility] 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 Gallbladder structur e (body structure) Yocasta Ansari Comment on above: removed Scoliosis deformity of spine (disorder) Yocasta Ansari Comment on above: surgery Plan of Treatment Date Care Activity Detail Author Start: 07-17-2024 Adult BMI Follow Up Plan Adult BMI Follow Up Plan [facility] [employer] Start: 07-17-2024 Adult BMI Screening Adult BMI Screen ing [facility] [employer] Start: 07-17-2024 Depression Screening Depression Scre ening [facility] N[facility]it [facility] Start: 07-17-2024 Tobacco Screening Tobacco Screening [facility] Start: 05-23-2024 Screening for malign ant neoplasm of cervix Pap Smear [facility] Start: 07-17-2023 End: 09-13-2024 DBT Breast - bilateral screening Mammography screening bilateral with CAD Imaging Routine Family hx-breast malignancy At high risk for breast cancer Expected: 07/17/2023, Expires: 09/13/2024 [employer] Work Phone: Comment on above: Expected: 07/17/2023 , Expires: 09/13/2024 Start: 01-24-2023 Influenza vaccination Influenza Vacc ine [facility] Start: 02-25-2008 DTaP,Tdap and Td Vaccines (1 - Tdap) DTaP,Tdap and Td Vaccines (1 - Tdap) [facility] Payers Date Payer Category Payer Unknown [employer] OUT OF STATE PPO/TRUST [id number] 2017-Present [phone] [address] [place] [address] [id number] 1989 Unknown [id number] 1989 Unknown [id number] [id number] 1989 Unknown [id number] [id number] 1989 Unknown [id number] [id number] 1989 Unknown [id number] [id number] 1989 Unknown [id number] [id number] 1989 Unknown [id number] [id number] 1989 Unknown [id number] 2.16.840.1.105677.3.579.2.1286 1989 Unknown [id number] 2.16.840.1.073702.3.579.2.1286 1989 Unknown [id number] [id number] 1989 Unknown [id number] [id number] 1989 Unknown [id number] [id number] 1989 Unknown [id number] [id number] 1989 Unknown [id number] [id number] 1959 Unknown [id number] Social History Date Type Detail Facility Unknown if ever smoked [employer] Other Start: 11-02-2018 End: 07-17-2023 Sex Assigned At [facility] [employer] Other Start: 06-18-2022 End: 01-16-2024 Tobacco smoking status MNIS Ex-smoker [facility] History of tobacco use Current smoker [facility] Start: 06-18-2022 Tobacco use and exposure Smokeless tobacco non-user [facility] Start: 07-17-2023 Alcohol intake Current drinke r of alcohol (finding) [facility] Start: 11-02-2018 End: 07-17-2023 History of Social function [facility] Adolescent depressio n screening assessment 5 [facility] Start: 05-23-2021 Alcohol Comment rarely [facility] Start: 1990 Sex Assigned At Not on file [facility] Start: 09-25-2022 End: 10-09-2023 Tobacco smoking status Never smoked tobacco (finding) 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 Medical history includes depression, anxiety, hypertension, reflux. Outpatient medications include atenolol, gabapentin, Celexa, Prilosec, albuterol as needed. 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 Review of CBC from September 17, [...] % 10/09/23 Lymph Auto 34.4 % 09/17/23 Dyer Auto 4.6 % 10/09/23 Dyer Auto 4.6 % 09/17/23 Eos Auto 4.6 % 10/09/23 Eos Auto 3.7 % 09/17/23 Basophil Auto 0.7 % 10/09/23 Basophil Auto 0.6 % 09/17/23 Neutro Absolute 3.1 E9/L 10/09/23 Neutro Absolute 4.7 E9/L 09/17/23 Lymph Absolute 2 E9/L 10/09/23 Lymph Absolute 2.9 E9/L 09/17/23 Dyer Absolute 0.3 E9/L 10/09/23 Dyer Absolute 0.4 E9/L 09/17/23 Eos Absolute 0.3 E9/L 10/09/23 Eos Absolute 0.3 E9/L 09/17/23 Basophil Absolute 0 E9/L 10/09/23 Basophil Absolute 0.1 E9/L 09/17/23 Path Review Path Review 10/09/23 Glucose Lvl 91 mg/dL 09/17/23 BUN 11 mg/dL 09/17/23 Creatinine 0.7 mg/dL 09/17/23 Potassium Lvl 4.1 mmol/L 09/17/23 Chloride 104 mmol/L more content not included)... [facility] 10-16-2023 Hospital Discharge instructions Patient Education 10/16/2023 [...] including vitamins, herbs, eye drops, creams, and jlqo-lkm-iiyuzhb medicines. Any problems you or family members [...] provider tells you to take them. Taking tajl-ywb-eqdgncc medicines, vitamins, herbs, and supplements. General instructions [...] including vitamins, herbs, eye drops, creams, and hlbb-rlj-nvwocct medicines. Plan to have someone take you [...] provider. Document Revised: 09/28/2019 Document Reviewed: 09/28/2019 [employer] Patient Education 2022 [employer] Follow Up Care 10/15/2023 13:32:38 With:Brody Weston DO, ONC Address: [facility] [address] [place], [place] [address] [address] [phone] Fax Business (1) When: Unknown Comments:weekly cbc,check zinc and copper with next labs.f/u in 1 month. [facility] 10-09-2023 Evaluation + Plan note Diagnostic Tests PendingPath. Review 10/09/23 [facility] 07-17-2023 History of Present illness Narrative Annual Well Woman Visit 07/17/2023 Cecilio Carter is a 33 y.o. 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 Follow up as needed. Next pap due 2025 per ASCCP guidelines. Discussed taking a multivitamin. Discussed Calcium and Vitamin D for prevention of osteoporosis. HPV vaccine is recommended between 9-45 yo. Can be received at [facility] or the [facility] department. Discussed need for yearly mammogram after 40 yo. Discussed colon cancer screening recommendations to begin at 45 yo, patient to discuss with PCP. All questions answered. NAREN Villanueva APRN-CNP Lisa M Franco, APRN-CNP 07/17/23 [id number] documented in this encounter [facility] 12-10-2022 Evaluation note Encounter Date Diagnosis Assessment [...] understanding and is agreeable to treatment plan. [email or web address] Other 04-06-2023 Evaluation note* Encounter Date Diagnosis [...] no improvement in 2 to 3 days. [email or web address] Other Evaluation + Plan note Future Appointments Appointment Date:10/09/2023 10:20:00 AM Scheduled Provider:Yocasta Vidal [facility]ments Appointment [...] 10/22/23 * CBC w/ Auto Diff [facility]29/23 [facility] Future Appointments Appointment Date:05/27/2024 11:00:00 AM Scheduled Provider:Brody Weston DO Location:.ONCOLOGY Appointment Type:ONC Office Visit 20 (FT) Diagnostic Tests Pending * CBC w/ Auto Diff [facility]20[facility]23 [facility] Future Appointments Appointment Date:05/27/2024 11:00:00 AM Scheduled Provider:Brody Weston DO Location:.ONCOLOGY Appointment Type:ONC Office Visit 20 (FT) Diagnostic Tests Pending * Urine Culture 01/16/24 [facility] Evaluation note* Diagnosis Well woman exam with routine gynecological exam- Primary Routine gynecological examination Family hx-breast malignancy At high risk for breast cancer Standardized adult depression screening tool completed [facility] - [facility]* Type Description Date Medical History anxiety Medical History depression Surgical History cholecystectomy 2014 Hospitalization History see above [facility] [employer] Other History general Narrative - Reported* Type Description Date Medical History anxiety Medical History depression Medical History high blood pressure Medical History Esophageal reflux Surgical History cholecystectomy 2014 Hospitalization History see above [email or web address] Other Hospital course Narrative No data available for this section [facility] No data available for this section [facility]* Attachments The following attachments cannot be sent through Care Everywhere. * Health Risks of a High BMI ([place]oz[place]) * Lowering Your Risk of Breast Cancer ([place]oz[place]) [facility] No data available for this section [facility] Summary Purpose Family History No [...] and content) DATE CREATED AUTHOR 01/09/[address] [facility] DATE CREATED AUTHOR AUTHOR'S ORGANIZ ATION 07/25/2023 [facility] DATE CREATED AUTHOR AUTHOR'S ORGANIZ ATION 10/12/2023 [facility] DATE CREATED AUTHOR AUTHOR'S ORGANIZ ATION 10/30/2023 [facility] DATE CREATED AUTHOR AUTHOR'S ORGANIZ ATION 01/15/2024 [facility] DATE CREATED AUTHOR AUTHOR'S ORGANIZ ATION 01/19/2024 [facility] DATE CREATED AUTHOR AUTHOR'S ORGANIZ ATION 01/20/2024 [facility] DATE CREATED AUTHOR AUTHOR'S ORGANIZ ATION 02/01/2024 [facility] REASON FOR VISIT (unrecogniz ed section and content) Reason Comments Gynecologic Exam Pt is here for el ma exam. 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 [employer] [facility]. provides no warranty or guarantee of the accuracy or completeness of information in this document.
== END 2024-03-15 11:34 | disposition home or self-care (01) ==
LOC: LAB 11:35
PROVIDERS: PCP Nurse Practitioner; Visit Provider Internal Medicine
DX: D69.6 Thrombocytopenia, unspecified (principal)
CPT/HCPCS: 36415; 85025